=== PATIENT | female | born 1950 | race Caucasian/White ===

== ENCOUNTER → 2018-05-06 12:50 | Outpatient (REF) | payer MEDICARE, BC, SELFPAY | LOC: NCHCN 12:50 | PROVIDERS: PCP Family Medicine; Visit Provider Family Medicine | DX: R30.0 Dysuria (principal) | CPT/HCPCS: 87086 ==

== ENCOUNTER 2018-05-24 00:02 | Emergency (ER) | payer MEDICARE, BC, SELFPAY ==
[2018-05-24 00:07] VITALS: BP 150/85; PULSE 100; RESP 22; TEMP 37.3; O2SAT 96
--- NOTE | 2018-05-24 00:39 | ED.GENADUL_ITS ---
Discharge Plan Discharge Details Chief Complaint: Urinary Clinical Impression: Viral illness Reason For Visit: UNKNOWN Primary Care Provider: Tamara Gomez ED Provider: Randy Alcantara Disposition Patient Disposition: HOME Condition: Good Home Meds and New Rx's Prescriptions: Continue omega-3 fatty acids-fish oil 1 EACH capsule 1 ea PO BID RF: 0 multivitamin 1 EACH capsule 1 tab PO DAILY RF: 0 vitamin A 25,000 UNIT capsule 25,000 unit PO DAILY RF: 0 calcium carb and citrat-mag ox [CalMag Thins] 1 EACH tablet 1 ea PO DAILY RF: 0 metoprolol tartrate 12.5 MG tablet 12.5 mg PO PRN PRNRF: 0 acetaminophen [Mapap Extra Strength] 500 MG tablet 1,000 mg PO TID Qty: 120 RF: 2 esomeprazole magnesium [Nexium] 20 MG capsule,delayed release(DR/EC) 20 mg PO DAILY RF: 0 Discharge Instructions Instructions: Viral Syndrome (ED) Additional Instructions: This appears to likely be a viral illness. We will send a tickborne panel. Do not think that this is meningitis. However, if you develop continued worsening headache, neurologic changes, lethargy, vomiting, he should return to ED. Otherwise follow-up with primary care next week. Use Tylenol and Motrin for pain. Drink plenty of fluids to stay hydrated. Referrals: Tamara Gomez [Primary Care Provider] - Medical Decision Making MDM Narrative Medical decision making narrative: Patient presenting with complaints of fevers , chills, headache, body aches. She has had these now for the weekend. Has had a waxing and waning course. She developed a rash to the upper extremities this afternoon. This evening headache and body ache much worse. She is awake and alert. She is afebrile here. She has no meningeal signs. Constellation of symptoms are more suggestive of viral illness. She does have some dysuria so we will check a urinalysis. Will check laboratory studies, give a liter of fluid and give Toradol. If headache does not improve significantly need to consider CT and LP to rule out meningitis. Patient's laboratory studies have normal white count and normal platelets. Liver function is a little elevated so maybe consider tickborne disease though with normal platelets less likely. Viral illness could still be causing some liver function abnormality. Chemistries unremarkable. Urinalysis is negative. On reevaluation patient feels significantly better. Body aches are gone. Headache is still present but it is mostly sinus discomfort now. She continues to have no evidence of meningeal irritation. We discussed possibilities of meningitis and tickborne disease. Would not proceed with LP at this point. Will send off tickborne panel but would not treat. Patient be discharged home. Continue use of Tylenol and/or Motrin for fever and pain. Stay hydrated. Rest. Follow-up with primary care in a couple of days. Return to ED if significantly worsening headache, confusion, neurologic changes, vomiting, other concerns. Lab Data Lab results reviewed: Yes I reviewed the patient's lab results. HPI - General Adult General Mode of arrival: ambulatory . Date/Time Provider Initiated Documentation: 05/24/18 00:20 . Limitations to Documentation: no limitations . Information obtained by: patient . HPI Narrative-FOR DICTATION ONLY HPI Narrative: Patient presents to ED with complaints of headache and body aches. She has had fevers and chills on and off over the weekend. She recently was treated with amoxicillin for UTI. Symptoms seem to go away until this weekend she began to have dysuria again. She has strips that were positive for leukocyte esterase so she took some nitrofurantoin. She still has some dysuria. She developed a faint rash on her arms and legs this afternoon. She woke up tonight with generalized body pain throughout. Continues to have headache. Her eyes are burning and itching. She has no rhinorrhea, cough, sore throat. She has no chest pain or shortness of breath. She has no abdominal pain. She has some nausea but no vomiting or diarrhea. Related Data Home Medications Medication Instructions Recorded Confirmed multivitamin 1 tab PO DAILY 11/29/13 05/24/18 omega-3 fatty acids-fish oil 1 ea PO BID 06/22/17 05/24/18 calcium carb and citrat-mag ox 1 ea PO DAILY 08/19/17 05/24/18 [CalMag Thins] metoprolol tartrate 12.5 mg PO PRN PRN 08/19/17 05/24/18 vitamin A 25,000 unit PO DAILY 08/19/17 12/15/17 esomeprazole magnesium [Nexium] 20 mg PO DAILY 12/15/17 05/24/18 Previous Rx's Medication Instructions Recorded acetaminophen [Mapap Extra 1,000 mg PO TID #120 tab 08/27/17 Strength] Allergies Allergy/AdvReac Type Severity Reaction Status Date / Time No Known Allergies Allergy Unverified 05/24/18 00:10 General Stated Complaint: Urinary JUSTYN: 3 Review of Systems Constitutional Reports chills, Reports fever(s), Reports headache(s) (Throbbing frontal headache), Reports malaise and Denies weakness Eyes Patient Denies change in vision, denies, Reports itchy eyes and Denies eye pain ENT Denies otalgia, Reports headache(s) (Throbbing frontal headache), Denies nasal congestion, Denies nasal discharge, Denies neck pain and Denies sore throat Cardiovascular Denies chest pain, Denies pedal edema, Denies palpitations and Denies dyspnea Respiratory Denies chest congestion, Denies cough and Denies dyspnea Gastrointestinal Denies abdominal pain, Denies diarrhea, Reports nausea and Denies vomiting Genitourinary Denies hematuria and Reports dysuria Musculoskeletal Reports myalgias, Denies muscle weakness, Denies neck pain and Denies numbness Integumentary/Breasts Denies erythema, Reports rash and Denies wounds Neurologic Denies confusion, Reports headache(s) (Throbbing frontal headache), Denies numbness and Denies weakness Psychiatric Denies confusion Endocrine Denies palpitations Allergic/Immunologic Reports itchy eyes PFSH Medical History Pulmonary embolism (Chronic) SVT (supraventricular tachycardia) (Chronic) Social History Smoking/Tobacco Use Status: Former Tobacco Use Surgical History H/O total knee replacement (Inactive) S/P total hip arthroplasty (Inactive) Exam Const General: cooperative and other (Uncomfortable appearing but not toxic looking) Orientation: alert and oriented x3 HENMT Head: normal to inspection, normocephalic and atraumatic Mouth: moist mucous membranes Eyes Conjunctivae: conjunctival abnormality bilaterally conjunctival injection ( Minimal) Sclera: sclerae normal Pupils: PERRL Neck Neck: normal visual inspection, full ROM, no meningeal signs and supple Resp Effort & Inspection: normal respiratory effort Auscultation: clear to auscultation bilaterally Cardio Rate: regular rate Rhythm: regular rhythm Heart Sounds: S1 normal and S2 normal GI Inspection: normal to inspection Palpation: soft, no guarding and nontender Back/Spine/Pelvis Back: no CVA tenderness Skin General skin exam: no erythema Rashes: rashes noted (Maculopapular diffuse mildly erythematous rash on the upper extremities approximately. None noted on the trunk. Minimal appearance on the lower extremities.) Neuro General: alert, oriented x3, gait normal, moves all extremities, no meningeal signs, no focal motor deficits, CN's II-XI intact bilaterally, not confused and not obtunded Extrem General: normal to inspection, full ROM and no pedal edema Course Vital Signs Temperature 99.1 F 05/24/18 00:07 Pulse 100 H 05/24/18 00:07 Respiratory Rate 22 05/24/18 00:07 Blood Pressure 150/85 H 05/24/18 00:07 Pulse Oximetry 96 05/24/18 00:07 Temperature 99.1 F 05/24/18 00:07 Pulse 100 H 05/24/18 00:07 Respiratory Rate 22 05/24/18 00:07 Blood Pressure 150/85 H 05/24/18 00:07 Pulse Oximetry 96 05/24/18 00:07
[2018-05-24 00:50] LABS: Abs Immature Grans 0.01 k/cumm (0.0-0.09); Absolute Basophil Count 0.01 k/cumm (0.0-0.2); Absolute Eosinophil Count 0.68 k/cumm (0.0-0.7); Absolute Monocyte Count 0.35 k/cumm (0.11-0.7); Absolute Neutrophil Count 3.37 k/cumm (1.2-6.7); Basophils % 0.2; Eosinophils % 12.8; HCT 37.9 % (36.0-46.0); HGB 12.4 g/dL (12.0-15.5); Immature Grans % 0.2; Lymphocytes % 16.9; Mean Corp. HGB Concentration 32.7 g/dL (32.0-36.0); Mean Corpuscular Hemoglobin 28.8 pg (27.0-33.0); Mean Corpuscular Volume 87.9 fL (80-95); Mean Platelet Volume 9.6 fL (8.0-11.0); Monocytes % 6.6; Neutrophils % 63.3; Platelet Count 252 x1000/uL (130-400); RBC 4.31 m/cumm (4.00-5.20); RBC Distribution Width 13.8 % (11.7-14.6); White Blood Cell Count 5.32 k/cumm (4.4-10.8)
[2018-05-24] MEDS: Normal Saline Flush 10 ML SYR IVP (01:00)
[2018-05-24] MEDS: Ketorolac 15 MG/ML VIAL IVP (01:00)
[2018-05-24] MEDS: Lactated Ringers 1,000 ML 1000 ML IV (01:00)
[2018-05-24 01:08] LABS: ALT 84 U/L (12-78); AST 66 U/L (15-37); Alkaline Phosphatase 135 U/L (46-116); Anion Gap 5.7 mmol/L (3-11); BUN 9 mg/dL (7-18); Bilirubin, Total 0.3 mg/dL (0.2-1.0); CO2 28.3 mmol/L (21.0-32.0); Calcium 8.6 mg/dL (8.5-10.1); Chloride 103 mmol/L (98-107); Glucose 118 mg/dL (70-100); Magnesium 1.8 mg/dL (1.8-2.4); Potassium 3.7 mmol/L (3.5-5.1); Sodium 137 mmol/L (136-145); Total Protein 6.8 g/dL (6.4-8.2)
[2018-05-24 03:08] LABS: Bilirubin Negative (Negative); Blood Small (Negative); Clarity Clear; Glucose Negative (Negative); Ketones Negative (Negative); Leukocyte Esterase Negative (Negative); Nitrite Negative (Negative); Specific Gravity 1.015 (1.005-1.025); Urobilinogen 0.2 EU/dL (Up TO 0.2)
[2018-05-24 03:15] LABS: Bacteria Few HPF (Negative); C & S Indicated? No/Sq. Contamination; Casts Negative LPF (Negative); Crystals Negative HPF (Negative); Epithelial Cells Moderate HPF (Negative); Mucus Negative (Negative)
[2018-05-24 04:26] VITALS: BP 150/85; PULSE 100; RESP 22; TEMP 37.3; O2SAT 96
[2018-05-26 12:20] LABS: Lyme Ab w Rflx to Lyme Confirm Negative
[2018-05-26 21:36] LABS: Anaplasma phagocytophilum Negative (Negative); B. miyamotoi PCR Negative (Negative); Babesia divergens/MO-1 Negative (Negative); Babesia duncani Negative (Negative); Babesia microti Negative (Negative); Ehrlichia chaffeensis Negative (Negative); Ehrlichia ewingii/canis Negative (Negative); Ehrlichia muris eauclairensis Negative (Negative)
== END 2018-05-24 04:26 | disposition home or self-care (01) ==
LOC: ER 04:31
PROVIDERS: Emergency Provider Emergency Medicine; PCP Family Medicine
DX: B34.9 Viral infection, unspecified (principal)
CPT/HCPCS: 36415; 80053; 96374; 99284; 81003; 81015; 83735; 85025; 86618; 87798; 99282; J1885

== ENCOUNTER 2018-08-12 13:20 | Emergency (ER) | payer MEDICARE, BC, SELFPAY ==
[2018-08-12] VITALS (39 sets, daily range): BP systolic 126–154; BP diastolic 66–91; PULSE 55–68; RESP 9–22; TEMP 36.2; O2SAT 59–100
[2018-08-12 14:18] LABS: Abs Immature Grans 0.01 k/cumm (0.0-0.09); Absolute Basophil Count 0.07 k/cumm (0.0-0.2); Absolute Eosinophil Count 0.14 k/cumm (0.0-0.7); Absolute Lymphocyte Count 1.88 k/cumm (1.2-3.4); Absolute Neutrophil Count 5.04 k/cumm (1.2-6.7); Basophils % 0.9; Eosinophils % 1.8; HCT 39.7 % (36.0-46.0); Immature Grans % 0.1; Lymphocytes % 24.6; Mean Corp. HGB Concentration 32.7 g/dL (32.0-36.0); Mean Corpuscular Hemoglobin 29.3 pg (27.0-33.0); Mean Corpuscular Volume 89.4 fL (80-95); Mean Platelet Volume 9.7 fL (8.0-11.0); Monocytes % 6.5; Neutrophils % 66.1; Platelet Count 330 x1000/uL (130-400); RBC 4.44 m/cumm (4.00-5.20); RBC Distribution Width 14.7 % (11.7-14.6); White Blood Cell Count 7.64 k/cumm (4.4-10.8)
[2018-08-12 14:27] LABS: PTT Activated 21.7 sec (21.0-31.4)
[2018-08-12 14:29] LABS: ALT 27 U/L (12-78); AST 17 U/L (15-37); Albumin 3.6 g/dL (3.4-5.0); Alkaline Phosphatase 81 U/L (46-116); Anion Gap 7.5 mmol/L (3-11); BUN 14 mg/dL (7-18); Bilirubin, Total 0.2 mg/dL (0.2-1.0); CO2 30.5 mmol/L (21.0-32.0); Calcium 9.2 mg/dL (8.5-10.1); Chloride 103 mmol/L (98-107); Glucose 95 mg/dL (70-100); Magnesium 2.1 mg/dL (1.8-2.4); Potassium 3.8 mmol/L (3.5-5.1); Sodium 141 mmol/L (136-145); Total Protein 7.3 g/dL (6.4-8.2)
[2018-08-12 14:33] LABS: Troponin I < 0.02 ng/mL (0.00-0.06)
--- NOTE | 2018-08-12 14:55 | DI.CT_ITS ---
SYMPTOMS/DIAGNOSIS: PRIOR PE, CHEST PAIN, WEAKNESS PE CHEST CT: CT angiography was performed with multi slice acquisition and multi planar and 3D reconstruction. The study was carried out with intravenous injection of 100 cc's of Omnipaque 350. There is no evidence of pulmonary embolic disease. The aorta is intact with no abnormality identified. There is no pulmonary abnormality. There is no pneumothorax or pleural effusion. There is no cardiomegaly. There is nothing to suggest a pericardial effusion. There is no evidence of lymphadenopathy. Degenerative changes are identified. No acute fracture is seen. The soft tissues are unremarkable. SUMMARY: No evidence of PE. Incidental findings as noted above.
[2018-08-12] MEDS: Omnipaque 350 MG/ML 100 ML BTL IJ (14:56)
--- NOTE | 2018-08-12 16:06 | ED.GENADUL_ITS ---
Discharge Plan Disposition Patient Disposition: HOME Discharge Details Chief Complaint: Dizzy/Sync Clinical Impression: Pain of left scapula, Fatigue Primary Care Provider: Tamara Gomez ED Provider: Mario Alberto Dickey Home Meds and New Rx's Prescriptions: New aspirin 325 mg tablet 325 mg PO DAILY Qty: 30 RF: 0 Continue omega-3 fatty acids-fish oil 1 EACH capsule 1 ea PO DAILY RF: 0 multivitamin 1 EACH capsule 1 tab PO DAILY RF: 0 calcium carb and citrat-mag ox [CalMag Thins] 1 EACH tablet 1 ea PO DAILY RF: 0 metoprolol tartrate 12.5 MG tablet 12.5 mg PO PRN PRNRF: 0 acetaminophen [Mapap Extra Strength] 500 MG tablet 1,000 mg PO TID Qty: 120 RF: 2 ascorbic acid (vitamin C) [Vitamin C] 500 mg Tablet 500 mg PO DAILY RF: 0 esomeprazole magnesium [Nexium] 20 MG capsule,delayed release(DR/EC) 20 mg PO DAILY RF: 0 Discharge Instructions Instructions: Fatigue (ED) Additional Instructions: You should have a stress test performed as soon as possible and ideally within the next 72 hours. Take an aspirin 325mg daily. Please contact your primary care physician to arrange follow-up. Call tomorrow. Return to the ER for any worsening or new concerning symptoms. Referrals: Tamara Gomez [Primary Care Provider] - Discharge Data Discharge Date/Time-TO BE ENTERED AT DEPARTURE: 08/12/18 18:21 Medical Decision Making 16:40 -- 68-year-old female with history of DVT/PE, not on anticoagulation, bilateral knee replacement, SVT, here with intermittent pain in her left scapular area, also with an episode today of sudden fatigue with associated nausea. She continues to have fatigue currently. No pain currently. Concern for atypical presentation of ACS. ECG reviewed and interpreted by me: Normal sinus rhythm, 60 bpm, normal axis, no STEMI, nondiagnostic. Initial troponin negative. Given history of unprovoked pulmonary embolism in the past and not currently anticoagulated, plan is to obtain CT imaging to rule out acute pulmonary embolsim and dissection. Awaiting interpretation. 17:05 -- Labs reviewed and nondiagnostic. CT of the chest interpreted by radiology: Pulmonary arteries normal with no pulmonary emboli. Aorta normal with no aortic aneurysm. No aortic dissection. Impression no acute findings. Plan for delta troponin at 4 hours and repeat ECG. 17:40 --ECG reviewed and interpreted by me: Sinus bradycardia 56 bpm, normal axis, no STEMI, no significant changes from prior EKG. 18:05 -- Delta trop neg and unchanged. Will discharge with plan to have stress test as outpatient claudine. Disposition decision was made weighing the risks and benefits of hospitalization versus outpatient treatment, the risk for further decompensation , and the patient's wishes. The patient was stable and requested discharge. Prior to discharge, my usual and customary return precautions were reviewed with the patient and her - this included follow-up instructions and reason to return to the emergency department if condition worsens, does not improve as expected, or other new concerns arise. HPI General Mode of arrival: ambulatory . Date/Time Provider Initiated Documentation: 08/12/18 13:54 . Limitations to Documentation: no limitations . Information obtained by: patient . HPI Narrative: 68-year-old female with history of DVT and pulmonary embolism, no longer anticoagulated, bilateral total knee replacements, SVT, here with chief complaint of pain in her shoulder blade. Patient notes that this morning she was shoveling snow and shortly thereafter developed pain in her left shoulder blade that was intermittent this morning. She has been having intermittent pain in her shoulder blades over the past 1-2 months. Pain was moderate. Described as an ache. No associated chest pain. She also notes that around 1215 she suddenly experienced a rushing sensation.. that struck the energy out of her. This feeling was severe and she was left feeling fatigued. She had associated nausea with this episode. Also of note, patient has had significant life stressors including her mother passing recently. Denies associated leg swelling or calf pain. No shortness of breath. Related Data Home Medications Medication Instructions Recorded Confirmed multivitamin 1 tab PO DAILY 11/29/13 08/12/18 omega-3 fatty acids-fish oil 1 ea PO DAILY 06/22/17 08/12/18 calcium carb and citrat-mag ox 1 ea PO DAILY 08/19/17 05/24/18 [CalMag Thins] metoprolol tartrate 12.5 mg PO PRN PRN 08/19/17 08/12/18 acetaminophen [Mapap Extra 1,000 mg PO TID #120 tab 08/27/17 08/12/18 Strength] esomeprazole magnesium [Nexium] 20 mg PO DAILY 12/15/17 08/12/18 ascorbic acid (vitamin C) [Vitamin 500 mg PO DAILY 08/12/18 08/12/18 C] aspirin 325 mg PO DAILY #30 tab 08/12/18 Previous Rx's Medication Instructions Recorded acetaminophen [Mapap Extra 1,000 mg PO TID #120 tab 08/27/17 Strength] aspirin 325 mg PO DAILY #30 tab 08/12/18 Allergies Allergy/AdvReac Type Severity Reaction Status Date / Time No Known Allergies Allergy Unverified 08/12/18 13:30 General Stated Complaint: Dizzy/Sync JUSTYN: 2 Review of Systems Review of Systems All systems reviewed & are unremarkable except as noted in HPI and below Constitutional Reports fatigue and Denies fever(s) Cardiovascular Denies chest pain Endocrine Reports fatigue PFSH Medical History Pulmonary embolism (Chronic) SVT (supraventricular tachycardia) (Chronic) Social History Smoking/Tobacco Use Status: Former Tobacco Use Surgical History H/O total knee replacement (Inactive) S/P total hip arthroplasty (Inactive) Social History Smoking/Tobacco Use Status: Former Tobacco Use Exam Const General: cooperative and no acute distress HENMT Head: normocephalic and atraumatic Mouth: moist mucous membranes Eyes Conjunctivae: normal conjunctivae Sclera: normal sclerae EOM: EOM intact bilaterally Neck Neck: trachea midline and supple Resp Auscultation: clear to auscultation bilaterally, no rales, no rhonchi and no wheezes Cardio Jugular venous pressure: no JVD Rate: regular rate and not tachycardic Rhythm: regular rhythm GI Palpation: soft, not firm, no guarding, no masses, not rigid and nontender Skin General skin exam: no rashes or lesions noted Neuro General: alert, awake, oriented x3 and tone normal Extrem General: no calf tenderness bilaterally and no edema Psych Appearance: grossly normal Mental Status: mental status grossly normal Speech and Movement: speech and movement normal Mood: anxious mood Course Vital Signs Respiratory Rate 22 08/12/18 13:24 Pulse Oximetry 100 11/22/18 13:24 Temperature 36.2 C L 08/12/18 13:25 Temperature Source Skin 08/12/18 13:25 Pulse 57 L 08/12/18 15:44 Pulse 59 L 08/12/18 15:44 Respiratory Rate 14 08/12/18 15:44 Respiratory Effort 08/12/18 13:33 Respiratory Pattern Normal 08/12/18 13:33 Blood Pressure 137/71 08/12/18 15:44 Blood Pressure Mean 86 08/12/18 15:44 Pulse Oximetry 99 08/12/18 15:44 Oxygen Delivery Method Room Air 08/12/18 13:25 Oxygen Flow Rate 0 08/12/18 13:25 Lab/Test Results Lab/Test Results: Laboratory Tests Range/Units 08/12/18 08/12/18 08/12/18 13:30 13:30 13:30 WBC (4.4-10.8) k/cumm 7.64 RBC (4.00-5.20) m/cumm 4.44 Hgb (12.0-15.5) g/dL 13.0 Hct (36.0-46.0) % 39.7 MCV (80-95) fL 89.4 MCH (27.0-33.0) pg 29.3 MCHC (32.0-36.0) g/dL 32.7 RDW (11.7-14.6) % 14.7 H Plt Count (130-400) x1000/uL 330 MPV (8.0-11.0) fL 9.7 Immature Gran % 0.1 Neutrophils % 66.1 Lymphocytes % 24.6 Monocytes % 6.5 Eosinophils % 1.8 Basophils % 0.9 Absolute Neutrophils (1.2-6.7) k/cumm 5.04 Absolute Lymphocytes (1.2-3.4) k/cumm 1.88 Absolute Monocytes (0.11-0.7) k/cumm 0.50 Absolute Eosinophils (0.0-0.7) k/cumm 0.14 Absolute Basophils (0.0-0.2) k/cumm 0.07 APTT (21.0-31.4) sec 21.7 Sodium (136-145) mmol/L 141 Potassium (3.5-5.1) mmol/L 3.8 Chloride (98-107) mmol/L 103 Carbon Dioxide (21.0-32.0) mmol/L 30.5 Anion Gap (3-11) mmol/L 7.5 BUN (7-18) mg/dL 14 Creatinine (0.55-1.02) mg/dL 0.90 Estimated GFR/1.73 m2 (mL/min/1.73m2) >= 60.00 Glucose (70-100) mg/dL 95 Calcium (8.5-10.1) mg/dL 9.2 Magnesium (1.8-2.4) mg/dL 2.1 Total Bilirubin (0.2-1.0) mg/dL 0.2 AST (15-37) U/L 17 ALT (12-78) U/L 27 Alkaline Phosphatase (46-116) U/L 81 Troponin I (0.00-0.06) ng/mL < 0.02 Total Protein (6.4-8.2) g/dL 7.3 Albumin (3.4-5.0) g/dL 3.6
--- NOTE | 2018-08-12 16:54 | DI.VRAD_ITS ---
EXAM: CT Angiography Chest With Intravenous Contrast EXAM DATE/TIME: 08/12/2018 1:59 PM CLINICAL HISTORY: 68 years old, female; Pain; Chest pain; Left-sided chest pain; Patient HX: Prior pe 1 year ago, chest pain and weakness x1 week, increased chest pain this morning. TECHNIQUE: Axial computed tomographic angiography images of the chest with intravenous contrast using CT angiography protocol. All CT scans at this facility use at least one of these dose optimization techniques: automated exposure control; mA and/or kV adjustment per patient size (includes targeted exams where dose is matched to clinical indication); or iterative reconstruction. Coronal and sagittal reformatted images were created and reviewed. MIP and 3D reconstructed images were created and reviewed. CONTRAST: 100 ml of omnipaque 350 administered intravenously. COMPARISON: CT CHEST FOR PULMONARY EMBOLUS 11/15/2016 8:15 AM FINDINGS: Pulmonary arteries: Normal. No pulmonary emboli. Aorta: Normal. No aortic aneurysm. No aortic dissection. Lungs: Normal. No consolidation. No masses. Pleural space: Normal. No pneumothorax. No pleural effusion. Heart: Normal. No cardiomegaly. No pericardial effusion. Lymph nodes: Unremarkable. No enlarged lymph nodes. Bones/joints: Age-related degenerative changes. No acute fracture. Soft tissues: Unremarkable. IMPRESSION: No acute findings. Dictated and Authenticated by: Zach Livingston MD. Ordering:FADI TOLBERT MD
[2018-08-12 17:57] LABS: Troponin I < 0.02 ng/mL (0.00-0.06)
== END 2018-08-12 18:21 | disposition home or self-care (01) ==
PROVIDERS: Nurse Practitioner Family; Emergency Provider Student in an Organized Health Care Education/Training Program; PCP Family Medicine
DX: M25.512 Pain in left shoulder (principal); R53.83 Other fatigue; R11.0 Nausea; Z86.711 Personal history of pulmonary embolism; Y93.H1 Activity, digging, shoveling and raking
CPT/HCPCS: 36415; 71275; 80053; 93005; 99285; 83735; 84484; 85025; 85730; 93010; J3490

== ENCOUNTER 2018-08-13 16:42 | Outpatient (REF) | payer MEDICARE, BC, SELFPAY ==
[2018-08-13 20:56] LABS: Lipase 170 U/L (73-393)
[2018-08-13 22:29] LABS: T4 7.8 ug/dL (4.5-12.5)
[2018-08-15 17:43] LABS: T3, Total 110 ng/dl (97-169)
== END 2018-08-13 17:02 ==
LOC: NCHCN 16:42
PROVIDERS: PCP Family Medicine; Visit Provider Family Medicine
DX: R10.9 Unspecified abdominal pain (principal); E03.9 Hypothyroidism, unspecified
CPT/HCPCS: 83690; 84436; 84443; 84480

== ENCOUNTER 2018-08-18 00:11 | Outpatient (CLI) | payer MEDICARE, BC, SELFPAY ==
--- NOTE | 2018-08-18 08:30 | ETT_ITS ---
*[facility]* *[facility]* [address] [place] [address] Stress Electrocardiography Sorin protocol Date of study: 08/18/2018 *PATIENT PRESENTATION* Height: 162.6cm (64in) Blood Pressure: Weight: 96.4kg (212lb) BSA: 2.13m^2 Ordering physician: Mario Alberto Dickey Impressions: Negative stress test after maximal exercise. Summary: 1. Stress ECG conclusions: The stress ECG is negative. Jauregui treadmill score: 3. This score predicts a moderate risk of cardiac events. 2. Stress: The target heart rate was achieved. The heart rate response to stress is normal. There is a normal resting blood pressure with an appropriate response to stress. The patient experienced no chest pain during stress. Exercise capacity is markedly diminished for age. Recommendations: Consider nuclear stress test for further risk stratification if strong suspicion for CAD. Indication: R07.9, Appropriate Use Criteria: A (Appropriate). History: REASON FOR VISIT: PT WAS SEEN IN THE ED ON 08/12/18 FOR INTERMITTENT PAIN IN HER LEFT SCAPULA AREA ALSO WITH AN EPISODE OF SUDDEN FATIGUE ASSOCIATED WITH NAUSEA. PT ARRIVES TODAY WITH MILD LEFT SHOULDER PAINS AND FATIGUE. Risk factors: Family history of coronary artery disease. Obesity. Dyslipidemia. Cholesterol: 211mg/dl. HDL: 79mg/dl. LDL: 100mg/dl. Triglycerides: 113mg/dl. ALLERGIES: NO KNOWN ALLERGIES. MEDICATIONS: OMEGA-3 FATTY ACIDS-FISH OIL 1 CAP DAILY. MVI 1 TAB DAILY. METOPROLOL TARTRATE 12.5 MG PRN. ESOMEPRAZOLE MAGNESIUM 20 MG DAILY. CALCIUM CARB AND CITRATE-MAG OX 1 DAILY. ASPIRIN 325 MG DAILY. ASCORBIC ACID 500 MG DAILY. ACETAMINOPHEN 1,000 MG TID. Protocol: Sorin protocol. Baseline ECG: SINUS BRADYCARDIA. HR 59 BPM. Sinus bradycardia. Stress protocol: + +---+ + !Stage !HR !BP (mmHg) ! + +---+ + !Baseline supine !59 !148/86 (107)! + +---+ + !Baseline standing !72 !140/88 (105)! + +---+ + !Immediate post stress!120!152/76 (101)! + +---+ + !Recovery; 3 min !66 !152/80 (104)! + +---+ + !Recovery; 6 min !71 !142/80 (101)! + +---+ + * Stress results: Maximal heart rate during stress was 152bpm (100% of maximal predicted heart rate). The maximal predicted heart rate was 152bpm. The target heart rate was achieved. The heart rate response to stress is normal. There is a normal resting blood pressure with an appropriate response to stress. The rate-pressure product for the peak heart rate and blood pressure was 10465ad Hg/min. The patient experienced no chest pain during stress. Exercise capacity is markedly diminished for age. Stress ECG: TREADMILL PORTION OF STRESS TEST ENDED IN 2 MINUTES & 18 SECONDS PER PT'S REQUEST DUE TO FATIGUE. EXAGGERATED HEART RATE RESPONSE TO EXERCISE. HR 59 BPM AT REST. HR 120 BPM AFTER 2 MINUTES OF EXERCISE. NORMAL BLOOD PRESSURE RESPONSE TO EXERCISE MAX HR = 152 % OF TARGET HR = 100 RARE PVC & PAC. APPROXIMATE METS ACHIEVED = 4.64 NO ANGINA NO SIGNIFICANT ST SEGMENT CHANGES MILDLY DIMINISHED FUNCTIONAL CAPACITY FOR EXERCISE The stress ECG is negative. Jauregui treadmill score: 3. This score predicts a moderate risk of cardiac events. Study data: Jd Irwin MD supervised and was readily available during the procedure. This study was interpreted by [facility]. Study status: Routine. Consent: The risks, benefits, and alternatives to the procedure were explained to the patient and informed consent was obtained. Procedure: Initial setup. A baseline ECG was recorded. Surface ECG leads and manual cuff blood pressure measurements were monitored. Heart sounds: Normal. Lung sounds: Normal. Treadmill exercise testing was performed using the Sorin protocol. Study completion: The patient tolerated the procedure well and was discharged from the lab. Discharge: The patient left the laboratory in stable condition. Birthdate: Patient birthdate: 1950. Sex: Gender: female. Study date: Study date: 08/18/2018. Study time: 08:30 AM. Signature Documentation: The Stress ECG portion of this study was interpreted by Jd Irwin MD. Electronically signed by Jd Irwin 08/18/2018 10:37
== END 2018-08-18 00:31 ==
PROVIDERS: PCP Family Medicine; Visit Provider Student in an Organized Health Care Education/Training Program
DX: R07.9 Chest pain, unspecified (principal); R10.9 Unspecified abdominal pain
CPT/HCPCS: 76700; 93017

== ENCOUNTER 2018-08-18 09:43 | Outpatient (CLI) | payer MEDICARE, BC, SELFPAY ==
--- NOTE | 2018-08-18 08:13 | DI.US_ITS ---
SYMPTOMS/DIAGNOSIS: ABDOMINAL PAIN, R10.9 ABDOMINAL ULTRASOUND: Comparison is made with August,. The liver is normal in size and echogenicity. The gallbladder is unremarkable, without evidence of stones or wall thickening. There is no biliary dilatation. The spleen, kidneys and aorta are unremarkable. The tail of the pancreas is not optimally visualized. IMPRESSION: Negative abdominal ultrasound.
== END 2018-08-18 10:03 ==
PROVIDERS: PCP Family Medicine; Visit Provider Family Medicine
DX: R10.9 Unspecified abdominal pain (principal)
CPT/HCPCS: 76700

== ENCOUNTER 2018-08-24 00:27 | Outpatient (CLI) | payer MEDICARE, BC, SELFPAY ==
--- NOTE | 2018-08-24 08:33 | DI.NM_ITS ---
SYMPTOM/DIAGNOSIS: ABD PAIN, R10.9 HYPOTHYROIDISM, E03.9 CCK HIDA SCAN: The patient received 4.6 mCi Tc99m Mebrofenin. The Kinevac injection was stopped after 0.3 micrograms due to significant gallbladder emptying. The liver, bile ducts, gallbladder and small bowel were visualized at appropriate time intervals. Gallbladder ejection fraction was calculated at 83%. IMPRESSION: Normal examination.
== END 2018-08-24 00:47 ==
PROVIDERS: PCP Family Medicine; Visit Provider Family Medicine
DX: R10.9 Unspecified abdominal pain (principal); E03.9 Hypothyroidism, unspecified
CPT/HCPCS: 78227

== ENCOUNTER 2018-09-29 11:59 | Outpatient (REF) | payer MEDICARE, BC, SELFPAY ==
[2018-09-29 12:43] LABS: Cholesterol 211 mg/dL (50-200); HDL Cholesterol 81 mg/dL (40-60); LDL CHOLESTEROL 108 mg/dL (<100); Triglyceride 69 mg/dL (30-150)
[2018-09-30 10:42] LABS: Hepatitis C Ab w Rflx HCV PCR Negative (NEGAT)
[2018-10-01 11:36] LABS: IgA 108 mg/dL (85-499); Interpretation SEE COMMENTS; Tissue Transglutaminase IgA <1.2 U/mL (<4.0)
== END 2018-09-29 12:19 ==
LOC: NCHCN 11:59
PROVIDERS: PCP Nurse Practitioner; Visit Provider Nurse Practitioner
DX: R10.9 Unspecified abdominal pain (principal); Z11.59 Encounter for screening for other viral diseases; E03.9 Hypothyroidism, unspecified
CPT/HCPCS: 80061; 82784; 83516; 83721; 86803

== ENCOUNTER 2018-10-06 08:49 | Outpatient (CLI) | payer MEDICARE, BC, SELFPAY ==
--- NOTE | 2018-10-06 08:41 | DI.RAD_ITS ---
SYMPTOMS/DIAGNOSIS: ANNUAL F/U TEO LEFT HIP AND PELVIS: Comparison is made with [id number]. There has been no change in the total left hip prosthesis or surrounding bone. The right hip joint space is well maintained. Degenerative changes are seen at the right SI joint and pubic symphysis. IMPRESSION: Stable appearance of left hip prosthesis.
== END 2018-10-06 09:09 ==
PROVIDERS: PCP Nurse Practitioner; Referring Provider Family Medicine; Visit Provider Student in an Organized Health Care Education/Training Program
DX: M25.512 Pain in left shoulder (principal); M19.012 Primary osteoarthritis, left shoulder; Z96.642 Presence of left artificial hip joint; M53.3 Sacrococcygeal disorders, not elsewhere classified; Z47.1 Aftercare following joint replacement surgery
CPT/HCPCS: 73502

== ENCOUNTER 2018-10-06 10:27 | Outpatient (CLI) | payer MEDICARE, BC, SELFPAY ==
--- NOTE | 2018-10-06 09:30 | DI.RAD_ITS ---
SYMPTOMS/DIAGNOSIS: LEFT SHOULDER PAIN LEFT SHOULDER: There is mild spurring at the undersurface of the acromion and inferior glenoid. Subchondral cysts are seen in the humeral head. The humeral head appears normally positioned. IMPRESSION: Mild degenerative changes.
== END 2018-10-06 10:47 ==
PROVIDERS: PCP Nurse Practitioner; Visit Provider Physician Assistant
DX: M70.62 Trochanteric bursitis, left hip (principal); Z96.642 Presence of left artificial hip joint; M75.82 Other shoulder lesions, left shoulder; Z47.1 Aftercare following joint replacement surgery
CPT/HCPCS: 99213; 73030; 73502

== ENCOUNTER 2018-10-11 00:26 | Outpatient (CLI) | payer MEDICARE, BC, SELFPAY ==
--- NOTE | 2018-10-11 11:09 | DI.MAMMO_ITS ---
SYMPTOM/DIAGNOSIS: SCREENING, Z12.31 MAMMOGRAMS: Mammograms were interpreted according to the usual protocol including computer analysis with CAD system, tomosynthesis and C view imaging. Comparison with prior examinations. Breast density B. No suspicious masses or microcalcifications are seen. There is no definite evidence of malignancy. IMPRESSION: Negative mammogram. Routine screening is recommended. Category I. MQSA ASSESSMENT OF FINDINGS: Negative. Category 1. Patient will receive a letter notifying them of these results. BI-RADS category B. There are scattered areas of fibroglandular density.
== END 2018-10-11 00:46 ==
PROVIDERS: PCP Nurse Practitioner; Visit Provider Nurse Practitioner
DX: Z12.31 Encounter for screening mammogram for malignant neoplasm of breast (principal)
CPT/HCPCS: 77063; 77067

== ENCOUNTER → 2018-12-27 09:19 | Outpatient (BNVA) | payer MEDICARE, BC, SELFPAY | PROVIDERS: PCP Nurse Practitioner; Referring Provider Nurse Practitioner; Visit Provider Student in an Organized Health Care Education/Training Program | DX: M70.62 Trochanteric bursitis, left hip | CPT/HCPCS: 99213 ==

== ENCOUNTER 2019-01-03 12:54 | Emergency (ER) | payer MEDICARE, BC, SELFPAY ==
[2019-01-03 13:16] VITALS: BP 131/70; PULSE 70; RESP 16; TEMP 36.5; O2SAT 98
--- NOTE | 2019-01-03 13:30 | DI.CT_ITS ---
SYMPTOM/DIAGNOSIS: CHEST PAIN, H/O BLOOD CLOTS, PE PE CHEST CT: CT angiography was performed with multi slice acquisition and multi planar and 3D reconstruction. CT angiography of the chest was performed with intravenous infusion of 100 cc's of Omnipaque 350. Images obtained through the upper abdomen show unremarkable appearance of visualized portions of the liver and spleen. Inferior most portions of the lung bases are not included on these images. Lungs appear clear. No pleural effusion. No pneumothorax. No evidence of pulmonary embolic disease. No aortic dissection or aneurysm. No mediastinal or hilar adenopathy. Tracheobronchial tree appears intact. CONCLUSION: Negative chest CTA.
[2019-01-03 14:08] LABS: Bilirubin Negative (Negative); Blood Trace-intact (Negative); Clarity Clear; Glucose Negative (Negative); Ketones Negative (Negative); Leukocyte Esterase Negative (Negative); Nitrite Negative (Negative); Urobilinogen 0.2 EU/dL (Up TO 0.2); pH 5.5 (5-8)
[2019-01-03 14:15] LABS: Abs Immature Grans 0.02 k/cumm (0.0-0.09); Absolute Basophil Count 0.06 k/cumm (0.0-0.2); Absolute Eosinophil Count 0.15 k/cumm (0.0-0.7); Absolute Lymphocyte Count 1.73 k/cumm (1.2-3.4); Absolute Monocyte Count 0.44 k/cumm (0.11-0.7); Absolute Neutrophil Count 4.92 k/cumm (1.2-6.7); Basophils % 0.8; HGB 12.5 g/dL (12.0-15.5); Immature Grans % 0.3; Lymphocytes % 23.6; Mean Corp. HGB Concentration 32.9 g/dL (32.0-36.0); Mean Corpuscular Hemoglobin 29.3 pg (27.0-33.0); Mean Corpuscular Volume 89.2 fL (80-95); Mean Platelet Volume 9.2 fL (8.0-11.0); Neutrophils % 67.3; Platelet Count 298 x1000/uL (130-400); RBC 4.26 m/cumm (4.00-5.20); White Blood Cell Count 7.32 k/cumm (4.4-10.8)
[2019-01-03 14:17] LABS: Bacteria Few HPF (Negative); C & S Indicated? No; Casts Negative LPF (Negative); Crystals Negative HPF (Negative); Epithelial Cells Moderate HPF (Negative); Mucus Negative (Negative); RBC 0-2 (0-2); WBC 0-2 HPF (0-5)
[2019-01-03 14:40] LABS: ALT 23 U/L (12-78); AST 15 U/L (15-37); Albumin 3.6 g/dL (3.4-5.0); Alkaline Phosphatase 96 U/L (46-116); Anion Gap 7.2 mmol/L (3-11); BUN 13 mg/dL (7-18); Bilirubin, Total 0.3 mg/dL (0.2-1.0); CO2 29.8 mmol/L (21.0-32.0); CREATININE 0.95 mg/dL (0.55-1.02); Chloride 104 mmol/L (98-107); Glucose 103 mg/dL (70-100); Magnesium 1.9 mg/dL (1.8-2.4); Potassium 3.5 mmol/L (3.5-5.1); Sodium 141 mmol/L (136-145); Total Protein 7.4 g/dL (6.4-8.2); Troponin I < 0.02 ng/mL (0.00-0.06)
--- NOTE | 2019-01-03 15:04 | ED.GENADUL_ITS ---
Discharge Plan Disposition Patient Disposition: AGAINST MEDICAL ADVICE Condition: Improving Discharge Details Chief Complaint: Chest/Rib Clinical Impression: Chest pain, GERD (gastroesophageal reflux disease), Anxiety Primary Care Provider: Tamara Gomez ED Provider: Joao Mtz Home Meds and New Rx's Prescriptions: Continued CalMag Thins 1 EACH tablet 1 ea PO DAILY RF: 0 metoprolol tartrate 12.5 MG tablet 12.5 mg PO PRN PRNRF: 0 acetaminophen [Mapap Extra Strength] 500 MG tablet 1,000 mg PO TID Qty: 120 RF: 2 aspirin 325 mg tablet 325 mg PO DAILY Qty: 30 RF: 0 Discharge Instructions Instructions: Chest Pain (ED), Gastroesophageal Reflux Disease (ED), Anxiety (ED) Additional Instructions: Continue to take your medication as prescribed and follow-up with your primary care provider as needed for reassessment or if not improving. Return to emergency department mainly for any new or worsening symptoms including chest pain, shortness of breath, or further concerns. Referrals: Tamara Gomez [Primary Care Provider] - (As needed for reassessment, further concerns, or change symptoms) Discharge Data Discharge Date/Time-TO BE ENTERED AT DEPARTURE: 01/03/19 16:20 Medical Decision Making <Joao Mtz NP - Last Filed: 01/05/19 10:19> Patient presenting to the emergency department for chief complaint of right- sided back/chest pain radiating to left-sided chest. Patient does state that this started with some epigastric burning and discomfort and then progressed to discomfort in her right upper back radiating to left upper back. Patient does have some issue with anxiety and did have some slight increase in anxiety and shortness of breath that is now resolved. Patient did take aspirin prior to arrival and says full resolution of symptoms prior to coming in but still feels anxious given that this presentation was similar to when she previously had PE. EKG was performed by staffing clerk and does show S1 every 3 T3 but no acute signs of STEMI. Patient physical exam is unremarkable. Plan to do workup for PE study but given that patient was eating gastritis or GERD is also considered. Patient does state history of this. Patient denies GI cocktail medication given that she is pain free Review of labs show negative troponin, otherwise unremarkable labs and CT scan of chest shows no signs of PE. Patient reassessed and continues to state improvement of symptoms with no recurrence, no shortness of breath, no syncope. Given radiating chest pain patient was offered a repeat troponin and Nexium. Patient initially was agreeable to having secondary test but then stated that she did not want this test done. Patient clearly states risk versus benefit of denial of test which she states she does not feel it is her heart. Patient states understanding that decision could lead to or disability. given that I advised this test patient was agreeable to signing out AGAINST MEDICAL ADVICE but understands that she may return at any time for reassessment. Patient was encouraged to take her Nexium as I feel that this is a possibility of cause of symptoms. After discussion of diagnosis and plan of care patient has no further needs, questions, or concerns and states clear understanding to return to the emergency department for any worsening symptoms. <Raheel Scott DO - Last Filed: 01/04/19 12:04> EKG 13: 14 Rate 70, intervals normal, sinus rhythm, right bundle branch block, there is presence of an S1Q3T3, no extra heart strain ST elevations or depressions, no evidence of STEMI. HPI <Joao Mtz NP - Last Filed: 01/05/19 10:19> General Mode of arrival: ambulatory . Date/Time Provider Initiated Documentation: 01/03/19 13:25 . Limitations to Documentation: no limitations . Information obtained by: patient and RN notes reviewed . History of Present Illness 68 year old F presents to the emergency department with the chief complaint of Chest and back pain, described as similar to prior episodes, Quality is described as burning and aching, and is localized to the chest and back. Patient started experiencing this hour(s) (1) and it has been now resolved. No exacerbating factors reported . Patient notes no other symptoms.. Patient did receive the following treatments prior to arrival, Aspirin Related Data Home Medications Medication Instructions Recorded Confirmed CalMag Thins 1 ea PO DAILY 08/19/17 01/03/19 metoprolol tartrate 12.5 mg PO PRN PRN 08/19/17 01/03/19 acetaminophen [Mapap Extra 1,000 mg PO TID #120 tab 08/27/17 01/03/19 Strength] aspirin 325 mg PO DAILY #30 tab 08/12/18 01/03/19 Previous Rx's Medication Instructions Recorded acetaminophen [Mapap Extra 1,000 mg PO TID #120 tab 12/07/17 Strength] aspirin 325 mg PO DAILY #30 tab 08/12/18 Allergies Allergy/AdvReac Type Severity Reaction Status Date / Time No Known Allergies Allergy Unverified 12/27/18 09:27 General Stated Complaint: Chest/Rib JUSTYN: 2 Review of Systems <Joao Mtz NP - Last Filed: 01/05/19 10:19> Constitutional Denies chills, Denies fever(s) and Denies malaise Cardiovascular Reports as per HPI, Reports chest pain, Denies chest pain with activity, Denies syncope, Denies irregular heart rhythm, Denies palpitations and Denies dyspnea Respiratory Denies cough, Denies hemoptysis and Denies dyspnea Gastrointestinal Denies abdominal pain, Denies nausea and Denies vomiting Neurologic Denies syncope Psychiatric Denies anxiety Endocrine Denies cold intolerance, Denies heat intolerance and Denies palpitations PFSH <Joao Mtz NP - Last Filed: 01/05/19 10:19> Medical History Pulmonary embolism (Chronic) SVT (supraventricular tachycardia) (Chronic) Surgical History H/O total knee replacement (Inactive) S/P total hip arthroplasty (Inactive) Social History Smoking/Tobacco Use Status: Former Tobacco Use Drug use: Never Do you feel safe in your relationship?: Yes Exam <Joao Mtz NP - Last Filed: 01/05/19 10:19> Const General: cooperative, healthy appearing, comfortable, no acute distress, not diaphoretic and not ill appearing Nutritional Appearance: average body habitus Orientation: alert, awake and oriented x3 Limitations: mental status not altered Neck Neck: normal visual inspection, full ROM, trachea midline, supple and no anterior neck swelling Thyroid: thyroid normal Carotids: normal carotid upstroke and no bruits Chest Chest: normal inspection of the chest Resp Effort & Inspection: normal respiratory effort and able to speak in complete sentences Auscultation: clear to auscultation bilaterally Cardio Jugular venous pressure: no JVD Palpation: normal PMI Rate: regular rate Rhythm: regular rhythm Heart Sounds: S1 normal, S2 normal, no click, no gallops, no murmurs and no rubs Bruits: no abdominal aortic bruits and no carotid bruits Pulses: radial pulses present bilaterally 2+ GI Inspection: normal to inspection Palpation: soft, no aortic enlargement, no pulsatile masses and nontender Auscultation: normal bowel sounds Skin General skin exam: no rashes or lesions noted Neuro General: alert, awake, oriented x3, tone normal and moves all extremities Course <Joao Mtz NP - Last Filed: 01/05/19 10:19> Vital Signs Temperature 36.5 C 01/03/19 13:16 Pulse 70 01/03/19 13:16 Respiratory Rate 16 01/03/19 13:16 Blood Pressure 131/70 01/03/19 13:16 Pulse Oximetry 98 01/03/19 13:16 Temperature 36.5 C 01/03/19 13:16 Pulse 70 01/03/19 13:16 Respiratory Rate 16 01/03/19 13:16 Blood Pressure 131/70 01/03/19 13:16 Pulse Oximetry 98 01/03/19 13:16 Oxygen Delivery Method Room Air 01/03/19 13:16 Oxygen Flow Rate 0 01/03/19 13:16 Lab/Test Results Lab/Test Results: Laboratory Tests Range/Units 01/03/19 01/03/19 01/03/19 13:55 14:10 14:10 WBC (4.4-10.8) k/cumm 7.32 RBC (4.00-5.20) m/cumm 4.26 Hgb (12.0-15.5) g/dL 12.5 Hct (36.0-46.0) % 38.0 MCV (80-95) fL 89.2 MCH (27.0-33.0) pg 29.3 MCHC (32.0-36.0) g/dL 32.9 RDW (11.7-14.6) % 14.0 Plt Count (130-400) x1000/uL 298 MPV (8.0-11.0) fL 9.2 Immature Gran % 0.3 Neutrophils % 67.3 Lymphocytes % 23.6 Monocytes % 6.0 Eosinophils % 2.0 Basophils % 0.8 Absolute Neutrophils (1.2-6.7) k/cumm 4.92 Absolute Lymphocytes (1.2-3.4) k/cumm 1.73 Absolute Monocytes (0.11-0.7) k/cumm 0.44 Absolute Eosinophils (0.0-0.7) k/cumm 0.15 Absolute Basophils (0.0-0.2) k/cumm 0.06 Sodium (136-145) mmol/L 141 Potassium (3.5-5.1) mmol/L 3.5 Chloride (98-107) mmol/L 104 Carbon Dioxide (21.0-32.0) mmol/L 29.8 Anion Gap (3-11) mmol/L 7.2 BUN (7-18) mg/dL 13 Creatinine (0.55-1.02) mg/dL 0.95 Estimated GFR/1.73 m2 (mL/min/1.73m2) 58.50 Glucose (70-100) mg/dL 103 H Calcium (8.5-10.1) mg/dL 9.0 Magnesium (1.8-2.4) mg/dL 1.9 Total Bilirubin (0.2-1.0) mg/dL 0.3 AST (15-37) U/L 15 ALT (12-78) U/L 23 Alkaline Phosphatase (46-116) U/L 96 Troponin I (0.00-0.06) ng/mL < 0.02 Total Protein (6.4-8.2) g/dL 7.4 Albumin (3.4-5.0) g/dL 3.6 Urine Color (Yellow) Yellow Urine Clarity Clear Urine pH (5-8) 5.5 Ur Specific [place] (1.005-1.025) 1.020 Urine Protein (Negative) mg/dL Negative Urine Ketones (Negative) mg/dL Negative Urine Blood (Negative) Trace-intact H Urine Nitrite (Negative) Negative Urine Bilirubin (Negative) Negative Urine Urobilinogen (Up TO 0.2) EU/dL 0.2 Ur Leukocyte Esterase (Negative) Negative Urine RBC (0-2) 0-2 Urine WBC (0-5) HPF 0-2 Ur Epithelial Cells (Negative) HPF Moderate Urine Crystals (Negative) HPF Negative Urine Bacteria (Negative) HPF Few Urine Casts (Negative) LPF Negative Urine Mucus (Negative) Negative Ur Culture Indicated? No Urine Glucose (Negative) mg/dL Negative
[2019-01-03] MEDS: Omnipaque 350 MG/ML 100 ML BTL IJ (15:25)
[2019-01-03] MEDS: Esomeprazole 20 MG CAPCR PO (15:54)
[2019-01-03 15:55] VITALS: BP 135/71; PULSE 71; RESP 16; O2SAT 98
== END 2019-01-03 16:20 | disposition left against medical advice (07) ==
PROVIDERS: Emergency Provider Nurse Practitioner Family; PCP Family Medicine
DX: R07.9 Chest pain, unspecified (principal); K21.9 Gastro-esophageal reflux disease without esophagitis; F41.9 Anxiety disorder, unspecified; R10.13 Epigastric pain; Z53.29 Procedure and treatment not carried out because of patient's decision for other reasons; Z86.711 Personal history of pulmonary embolism; Z87.891 Personal history of nicotine dependence
CPT/HCPCS: 36415; 71275; 80053; 93005; 99285; 81003; 81015; 83735; 84484; 85025; 93010; 99284; J3490

== ENCOUNTER → 2019-02-04 10:44 | Outpatient (BNVA) | payer MEDICARE, BC, SELFPAY | PROVIDERS: PCP Family Medicine; Visit Provider Internal Medicine Cardiovascular Disease | DX: I47.1 Supraventricular tachycardia (principal); I10 Essential (primary) hypertension | CPT/HCPCS: 99213 ==

== ENCOUNTER → 2019-10-20 08:44 | Outpatient (BNVA) | payer MEDICARE, BC, SELFPAY | PROVIDERS: PCP Family Medicine; Referring Provider Family Medicine; Visit Provider Student in an Organized Health Care Education/Training Program | DX: M65.341 Trigger finger, right ring finger (principal) | CPT/HCPCS: 20600; 99214; J1030 ==

== ENCOUNTER 2019-10-31 01:28 | Outpatient (CLI) | payer MEDICARE, BC, SELFPAY ==
--- NOTE | 2019-10-31 13:04 | DI.MAMMO_ITS ---
EXAM: MG MAMMO SCREENING CLINICAL HISTORY: SCREENING Z12.31. TECHNIQUE: Full field digital CC and MLO mammographic images were obtained with 3D tomosynthesis and utilizing computer aided detection (CAD). COMPARISON: 2009 through 2018 FINDINGS: Breast Density - Category A - Almost entirely fatty Masses/Architectural Distortion: None seen. Microcalcifications: No suspicious pleomorphic-type calcifications are seen. Skin Thickening/Nipple Retraction: None. Axilla: Unremarkable. IMPRESSION: 1. BI-RADS category 1, negative. No significant interval change with no specific features of maligna ncy noted. 2. Unless there is more urgent need, screening mammography is recommended, as per [place] [employer] guidelines. A negative radiographic report should not delay biopsy if a dominant or clinically suspicious mass is present. Up to ten percent of cancers are not identified on mammography. A negative report may reinforce clinical impression. Adenosis and dense breasts may obscure an underlying neoplasm. False positive reports average 6 to 10%. Patient will receive a letter notifying them of these results.
== END 2019-10-31 01:48 ==
PROVIDERS: PCP Family Medicine; Visit Provider Family Medicine
DX: Z12.31 Encounter for screening mammogram for malignant neoplasm of breast (principal)
CPT/HCPCS: 77063; 77067

== ENCOUNTER 2019-12-23 08:21 | Outpatient (REF) | payer MEDICARE, BC, SELFPAY ==
[2019-12-23 20:09] LABS: HCT 39.8 % (36.0-46.0); Mean Corp. HGB Concentration 32.7 g/dL (32.0-36.0); Mean Corpuscular Hemoglobin 29.5 pg (27.0-33.0); Mean Corpuscular Volume 90.2 fL (80-95); Mean Platelet Volume 10.2 fL (8.0-11.0); Platelet Count 375 x1000/uL (130-400); RBC 4.41 m/cumm (4.00-5.20); RBC Distribution Width 14.3 % (11.7-14.6); White Blood Cell Count 6.43 k/cumm (4.4-10.8)
[2019-12-23 20:20] LABS: ALT 24 U/L (14-59); AST 18 U/L (15-37); Albumin 3.7 g/dL (3.4-5.0); Alkaline Phosphatase 83 U/L (46-116); Anion Gap 8.6 mmol/L (3-11); BUN 12 mg/dL (7-18); Bilirubin, Total 0.5 mg/dL (0.2-1.0); CO2 30.4 mmol/L (21.0-32.0); CREATININE 0.93 mg/dL (0.55-1.02); Calcium 9.4 mg/dL (8.5-10.1); Chloride 107 mmol/L (98-107); Estimated GFR 59.78 (mL/min/1.73m2); Glucose 89 mg/dL (74-106); Potassium 4.6 mmol/L (3.5-5.1); Sodium 146 mmol/L (136-145)
== END 2019-12-23 08:41 ==
LOC: NCHCN 08:21
PROVIDERS: PCP Family Medicine; Visit Provider Family Medicine
DX: E03.9 Hypothyroidism, unspecified (principal); R03.0 Elevated blood-pressure reading, without diagnosis of hypertension; I47.1 Supraventricular tachycardia; Z86.711 Personal history of pulmonary embolism
CPT/HCPCS: 80053; 85027

== ENCOUNTER 2020-04-16 11:28 | Outpatient (CLI) | payer MEDICARE, BC, SELFPAY ==
--- NOTE | 2020-04-16 11:15 | DI.RAD_ITS ---
EXAM: XR FOOT LT COMPLETE CLINICAL HISTORY: bunion and pes plansu. TECHNIQUE: 2D digital imaging was performed. COMPARISON: CR XR FOOT RT COMPLETE from 04/16/2020 FINDINGS: There is flattening of the plantar arch. There is spurring at the talonavicular joint. There is mil d hallux valgus. There are degenerative changes at the 1st MTP joint. Subchondral cysts are noted i n the medial 1st metatarsal head. Degenerative changes are also seen at the tibial talar joint. IMPRESSION: Hallux valgus, degenerative changes and pes planus. DATA REPOSITORY: RADIATION DOSE DELIVERED:
--- NOTE | 2020-04-16 11:15 | DI.RAD_ITS ---
EXAM: XR FOOT RT COMPLETE CLINICAL HISTORY: f/u pes planus. TECHNIQUE: 2D digital imaging was performed. COMPARISON: No exams were available for comparison FINDINGS: There has been previous surgery at the 1st metatarsal. Pin is noted distally. There are degenerativ e changes of 1st MTP joint but no hallux valgus. There is marked flattening of the plantar arch. Th ere is a small plantar calcaneal spur. There are degenerative changes of the talonavicular joint. T here is a subchondral cyst in the cuboid. There are degenerative changes between the cuboid and 3rd cuneiform as well as at the tarsal metatarsal joint. IMPRESSION: Pes planus and degenerative changes. Postsurgical changes of the 1st metatarsal. DATA REPOSITORY: RADIATION DOSE DELIVERED:
== END 2020-04-16 11:48 ==
PROVIDERS: PCP Family Medicine; Referring Provider Family Medicine; Visit Provider Student in an Organized Health Care Education/Training Program
DX: M21.41 Flat foot [pes planus] (acquired), right foot (principal); M21.42 Flat foot [pes planus] (acquired), left foot; M76.821 Posterior tibial tendinitis, right leg; M76.822 Posterior tibial tendinitis, left leg; M65.341 Trigger finger, right ring finger; M20.12 Hallux valgus (acquired), left foot
CPT/HCPCS: 99214; 73630

== ENCOUNTER 2020-05-08 08:27 | Day surgery (SDC) | payer MEDICARE, BC, SELFPAY ==
--- NOTE | 2020-05-08 07:28 | PDOC.DSDIS_ITS ---
Discharge Plan Disposition Patient Disposition: HOME Condition: Good Discharge Details Reason For Visit: RRF Trigger Finger Attending Provider: Yohannes Lee Primary Care Provider: Tamara Gomez Home Meds and New Rx's Prescriptions: New ibuprofen 600 mg tablet 600 mg PO TID PRNQty: 60 RF: 3 Continued aspirin 81 mg tablet,delayed release (DR/EC) 81 mg PO DAILY RF: 0 metoprolol tartrate 12.5 MG tablet 12.5 mg PO PRN PRNRF: 0 acetaminophen [Mapap Extra Strength] 500 MG tablet 1,000 mg PO TID Qty: 60 RF: 2 Discharge Instructions Stand Alone Forms: Rosa Larios Finger Release Referrals: Yohannes Lee MD [ [facility] STAFF PHYSICIAN] - Activity:: Elevate Remove Dressings/Wound Care:: 48 hours Shower/Bathe:: 48 hours Diet:: As Tolerated Discharge Orders Discharge Orders: Discharge Order (Routine); Ordered 05/08/20 Ordered By: Yohannes Lee DS: Diagnosis Discharge Diagnosis (1) Trigger finger, right ring finger: Status: Acute
[2020-05-08 08:30] VITALS: BP 143/83; PULSE 72; RESP 16; TEMP 36.3; O2SAT 97
[2020-05-08] MEDS: Sodium Bicarbonate 50 MEQ/50 ML VIAL ×2 (10:35)
--- NOTE | 2020-05-08 11:48 | W.PM.OP ---
Date of service: 05/08/20 Time of Service: 10:48 Operative Note Operative Note DATE OF PROCEDURE: 05/08/20 PRE-OP DIAGNOSIS: Right Ring Finger Trigger Finger POST-OP DIAGNOSIS: same PROCEDURE: Trigger Finger Release - Right Ring Finger SURGEON: Yohannes Lee ANESTHESIA: local ESTIMATED BLOOD LOSS: 0 PATHOLOGY: none sent COMPLICATIONS: None Patient was transported to: same day Patient's condition: stable Indications: I have seen Dana in clinic for symptoms of a trigger finger. The catching, clicking, locking, and pain limited function. The diagnosis of trigger finger was evident. The symptoms had not responded to conservative measures. I discussed trigger finger release with the patient. I reviewed the risks of the procedure to include, but not limited to, bleeding, infection, pain, stiffness, incomplete release, damage to nerves or vessels, continued catching, recurrence. Despite these risks, the patient elected to proceed. Findings: There was a tightened A1 sharda which was released. The flexor tendons were inspected and the patient was able to move the finger without any catching, clicking, or locking. Procedure Description: Dana was greeted in the preoperative holding area where the correct side was identified and marked. The consent was reviewed with the patient and signed. All questions were answered. She was taken back to the operating room. The patient was placed into the supine position on the operating room table with the right arm on an arm board. All bony prominences were well padded. No prophylactic antibiotics were administered since this was a clean, elective hand surgical case. The right arm was then prepped with Chloraprep and draped in a standard fashion with stockinette and extremity drape. A timeout to confirm correct identity, side and site, procedure, allergies, anesthesia, and medical concerns was performed. The surgical site was marked as a longitudinal incision directly over the A1 sharda of the right ring finger. This was confirmed with palpation during finger flexion. This area, overlying the metacarpal head, was then anesthetized with 1% Lidocaine. The patient tolerated this well and once the anesthetic had setup, the procedure began. A longitudinal incision was made through skin only, approximately 1cm. The deep tissues were dissected bluntly. Once the A1 sharda and flexor tendons were identified the soft tissue including neurovascular structures were retracted medially and laterally. There were no crossing structures over the A1 sharda. The proximal edge of the sharda was identified and the sharda was incised with tenotomy scissors. There was a release of the tendons once this was fully released. The tendons were then removed from the wound and inspected. Excess synovium was resected. The tendons were then returned and the patient was asked to move the finger into deep flexion and back to extension. There was no recreation of the pre-operative symptoms. The hand was then once more inspected for any A0 sharda or area of possible constriction. The wound was then irrigated and the skin was closed with a 4-0 Nylon. This was dressed with gauze and a Conform dressing. The patient tolerated the procedure well and was returned to the Same Day Surgery area in a stable condition suffering no known complication.
== END 2020-05-08 11:06 | disposition home or self-care (01) ==
PROVIDERS: PCP Family Medicine; Visit Provider Student in an Organized Health Care Education/Training Program
PROC: (CPT 26055; principal; 2020-05-08 10:15)
DX: M65.341 Trigger finger, right ring finger (principal)
CPT/HCPCS: 26055

== ENCOUNTER 2020-08-13 16:33 | Outpatient (REF) | payer MEDICARE, BC, SELFPAY | END 2020-08-13 16:53 | LOC: LBN 16:33 | PROVIDERS: PCP Family Medicine; Visit Provider Nurse Practitioner Adult Health | DX: N39.0 Urinary tract infection, site not specified (principal) | CPT/HCPCS: 87077; 87086; 87186 ==

== ENCOUNTER 2020-08-21 11:35 | Outpatient (CLI) | payer MEDICARE, BC, SELFPAY ==
--- NOTE | 2020-08-21 09:38 | DI.RAD_ITS ---
EXAM: XR HIP LT COMPLETE AP PELVIS CLINICAL HISTORY: LT HIP PAIN,M25.552 TECHNIQUE: COMPARISON: CR XR hip LT complete AP pelvis from 10/06/2018 CR XR LUMBAR SPINE COMPLETE from 08/21/2020 FINDINGS: Three views of the left hip and pelvis were obtained. There is a total hip joint replacement positio n on left. The components appear well seated. There are minimal degenerative changes of the right h ip. Five views of the lumbosacral spine were also obtained. There is a minimal biconvex thoracolumbar sc oliosis. There are moderate degenerative changes of the SI joints, right greater than left. There i s disc space narrowing at L3-4 and L4-5 and to a lesser degree at L5-S1, consistent with disc degener ation. There is vacuum disc phenomenon at each of these levels. There is mild pseudo spondylolisthesis of L4 on L5. There is no evidence of spondylolysis as visuali zed on the oblique views obtained. There are prominent hypertrophic degenerative changes involving t he facet joints and endplates throughout the lumbar region. No fracture identified. IMPRESSION: Severe DJD lumbosacral spine. SI joint degenerative change, right greater than left. Intact left hip prosthesis in position. RADIATION DOSE DELIVERED: Total DLP Total DLP
== END 2020-08-21 11:55 ==
PROVIDERS: PCP Family Medicine; Visit Provider Nurse Practitioner Family
DX: M47.816 Spondylosis without myelopathy or radiculopathy, lumbar region (principal); M16.11 Unilateral primary osteoarthritis, right hip
CPT/HCPCS: 72110; 73502

== ENCOUNTER → 2020-09-06 11:28 | Outpatient (BNVA) | payer MEDICARE, BC, SELFPAY | PROVIDERS: PCP Family Medicine; Referring Provider Family Medicine; Visit Provider Student in an Organized Health Care Education/Training Program | DX: M43.16 Spondylolisthesis, lumbar region (principal); M54.16 Radiculopathy, lumbar region | CPT/HCPCS: 99214 ==

== ENCOUNTER 2021-01-22 07:46 | Outpatient (CLI) | payer MEDICARE, BC, SELFPAY ==
--- NOTE | 2021-01-22 06:00 | DI.RAD_ITS ---
Exam(s) XR PAIN CLINIC LUMBAR SP 2V EXAM: XR PAIN CLINIC LUMBAR SP 2V CLINICAL HISTORY: Dx: Lumbar Spondylosis TECHNIQUE: 2D and realtime digital imaging was performed. CONTRAST MATERIAL: Refer to procedure report. COMPARISON: No exams were available for comparison FINDINGS: Fluoroscopy was provided for Dr. Ball during the performance of a lumbar medial branch block. Please r efer to the procedure report for complete details. Ka,r=13.08 mGy IMPRESSION:
[2021-01-22 07:56] VITALS: BP 140/73; PULSE 75; RESP 18; TEMP 36.8; O2SAT 100
[2021-01-22] MEDS: Omnipaque 240 MG/ML 50 ML BTL IJ (08:45)
[2021-01-22] MEDS: Bupivacaine 0.5% Pres-Free 10 ML VIAL IJ (08:45)
[2021-01-22 08:46] VITALS: BP 155/89; PULSE 67; RESP 21; O2SAT 100
--- NOTE | 2021-01-22 08:48 | PDOC.PAIN ---
Pain Clinic Procedure Note Procedure Note Procedure Note: Lumbar/Sacral Medial Branch Blocks MJ FAITH has been referred to the [facility] for lumbar/sacral medial branch blocks. Pre-operative diagnosis: lumbar spondylosis Post-operative diagnosis: same as above COMMENTS: patient was evaluated by Ms Lucy Nino APRN in our pain clinic, she has axial back pain, as well as left hip pain. she is status post hip replacement and she was told that she has left hip bursitis. She denies significant radiating leg pain. Predominantly axial back pain that is described as a dull ache, average pain level 6 out of 10, with functional impairment such as loading dishes, being able to enjoy turkey hunting. Patient was interviewed and the medical record reviewed. There were no medical, pharmacologic, radiographic or other structural contraindications to attempting fluoroscopically guided local anesthetic lumbar/sacral medial branch blocks. Risks and expected side effects as well as potential benefit of the procedure were reviewed and voiced concerns addressed. The printed consent form was signed and witnessed. Standard time-out procedure was performed. Patient was placed in the prone position on the fluoroscopy table and automated blood pressure cuff and pulse oximeter applied. The skin entry points for approaching the anatomic target points of the segmental medial branches of bilateral L3, L4, L5-DR were identified with anfluoroscopy and marked. Following thorough Chlorhexadine preparation of the skin and draping and 1% lidocaine infiltration of the skin entry points and subcutaneous tissues, a 22 gauge spinal needle was placed under fluoroscopic guidance down on to the target point for each respective segmental medial branch.Position was confirmed in A/P, oblique and lateral views with 0.25ml of omnipaque 240. Coult be this method 0.5ml 0.5% Bupivacaine was injected. Vital signs were stable throughout the procedure and were as recorded in the docflowsheet by the nursing staff. Follow up plans and appointments were discussed and was instructed to keep careful note of how the usual pain was modified by these injections. Specifically was asked to keep a pain diary for the next 24 hours using a numeric pain scale of 0-10 and report these results at the follow-up visit. Post procedure instruction was given as documented in the nursing documentation and having met discharge criteria. Patient was discharged from the Pain Management Center. Based on the medial branches blocked today, if the patient has adequate relief and we are able to proceed to radiofrequency ablation, the treatment should result in the denervation of the bilateral L4/5 and L5/S1. We would expect to denervate a total of 4 facets during the radiofrequency ablation. COMMENTS: patient reports 6 out of 10 VAS pre-procedure pain level, immediately after procedure, she reports no significant change in her pain level, remains 6 out of 10 VAS scale. Josh Sharif MD Pain Management CC: Tamara Gomez
== END 2021-01-22 07:47 | disposition home or self-care (01) ==
LOC: PC 07:46
PROVIDERS: PCP Family Medicine; Visit Provider Internal Medicine
DX: M47.816 Spondylosis without myelopathy or radiculopathy, lumbar region (principal)
CPT/HCPCS: 64493; 64494; 72100; Q9967

== ENCOUNTER 2021-03-12 12:25 | Outpatient (CLI) | payer MEDICARE, BC, SELFPAY ==
--- NOTE | 2021-03-12 12:30 | DI.RAD_ITS ---
Exam(s) XR PAIN CLINIC SACRIOILIAC 2V EXAM: XR PAIN CLINIC SACRIOILIAC 2V CLINICAL HISTORY: Dx: Sacroiliac Joint Dysfunction TECHNIQUE: 2D and realtime digital imaging was performed. COMPARISON: No exams were available for comparison FINDINGS: C-arm fluoroscopy was utilized by Dr. Sharif during reported bilateral SI joint injection. Hard copies c onfirm injection both SI joints. IMPRESSION: RADIATION DOSE DELIVERED: clare Layne= 29.1 mGy
[2021-03-12 12:33] VITALS: BP 121/66; PULSE 82; RESP 18; TEMP 36.6; O2SAT 99
--- NOTE | 2021-03-12 13:24 | PDOC.PAIN_ITS ---
Pain Clinic Procedure Note Procedure Note Procedure Note: INTRA-ARTICULAR SI JOINT INJECTION Date of Service: March 12, 2021 Patient: MJ FAITH Provider: Josh Sharif MD COMMENTS: patient reports bilateral lower back pain with radiation down bilateral buttocks and bilateral hips. patient was originally scheduled for R SI joint injection. I performed a pre-procedure physical examination where patient has tenderness over bilateral PSIS, as well as tenderness over bilateral greater trochanteric bursas. patient reports average pain level to be 6/10. Pre- procedure VAS score 7 out of 10. Given patient has bilateral symptoms, procedure switched to bilateral SI joint injections. Pre-operative diagnosis: sacroiliac joint dysfunction Post-operative diagnosis: sacroiliac joint dysfunction MJ FAITH has been [facility] for intra- articular SI joint injection. Ms Faith was interviewed and the medical record reviewed. There were no medical, pharmacologic, radiographic or other structural contraindications to attempting fluoroscopically guided intra-articular SI joint injection. Risks and expected side effects as well as potential benefit of the procedure were reviewed with MJ , and her voiced concerns were addressed. The printed consent form was signed and witnessed. Standard time-out procedure was performed. MJ was placed in the prone position on the fluoroscopy table and automated blood pressure cuff and pulse oximeter applied. The skin entry point for approaching the bilateral sacroiliac joint was identified under the most advantageous fluoroscopic view and marked. Following thorough Chlorhexadine preparation of the skin and draping and 1% lidocaine infiltration of the skin entry point and subcutaneous tissues, a 22 gauge spinal needle was placed under fluoroscopic guidance into the bilateral sacroiliac joint. Intra-articular placement was confirmed by a clear arthrogram resulting from the injection of 0.25ml Omnipaque 240. 2ml 1% Lidocaine and 80mg Depomedrol was injected intra- articularily (each joint received 40mg/ml of Depomedrol mixed with 1cc of 1% lidocaine) with an initial reproduction of a significant component of the usual pain. The needle was flushed with 0.5 cc of 1% Lidocaine and removed without difficulty. (49 cc of Omnipaque was wasted) MJ alicea vital signs were stable throughout the procedure and were as recorded in the docflowsheet by the nursing staff. If given, dosages of intravenous drugs for anxiolysis and analgesia were documented in MAR. Follow up plans and appointments were discussed with the MJ . Post procedure instruction was given as documented in nursing documentation and having met discharge criteria, MJ was [facility] from the [facility]. COMMENTS: No complications. Post procedure VAS score is 1 out of 10 on R side and 0 out of 10 on left side. F/U with Ms Lucy Nino APRN on prn basis. I personally performed this entire procedure. Josh Sharif MD ABPN-subspecialty board certification in Pain Medicine Attending Physician-Pain Management
[2021-03-12] MEDS: Omnipaque 240 MG/ML 50 ML BTL IJ (13:36)
[2021-03-12] MEDS: methylPREDNISolone ACETATE 80 MG/ML VIAL IJ (13:37)
[2021-03-12] MEDS: Lidocaine 1% Pres-Free 5 ML VIAL IJ (13:37)
[2021-03-12 13:38] VITALS: BP 139/70; PULSE 79; RESP 19; O2SAT 100
== END 2021-03-12 12:26 | disposition home or self-care (01) ==
LOC: PC 12:26
PROVIDERS: PCP Family Medicine; Visit Provider Internal Medicine
DX: M53.3 Sacrococcygeal disorders, not elsewhere classified (principal)
CPT/HCPCS: 27096; 72200; J1040; Q9967

== ENCOUNTER 2021-04-04 09:06 | Outpatient (REF) | payer MEDICARE, BC, SELFPAY ==
[2021-04-04 13:27] LABS: HCT 40.8 % (36.0-46.0); HGB 13.1 g/dL (11.2-15.7); MCH 29.4 pg (27.0-33.0); MCHC 32.1 % (32.0-36.0); MCV 91.7 fL (80-95); MPV 9.8 fL (8.0-11.0); Platelet Count 315 10^3/uL (130-400); RBC 4.45 10^6/uL (3.93-5.22); RDW 13.7 % (11.7-14.6); RDW-SD 46.6 fL; WBC 7.42 10^3/uL (4.4-10.8)
[2021-04-04 14:03] LABS: ALT 26 U/L (14-59); AST 12 U/L (15-37); Albumin 3.6 g/dL (3.4-5.0); Alkaline Phosphatase 86 U/L (46-116); Anion Gap 5.8 mmol/L (3-11); BUN 13 mg/dL (7-18); Bilirubin, Total 0.4 mg/dL (0.2-1.0); CO2 31.2 mmol/L (21.0-32.0); CREATININE 1.1 mg/dL (0.55-1.02); Calcium 9.4 mg/dL (8.5-10.1); Chloride 106 mmol/L (98-107); Glucose 92 mg/dL (74-106); Potassium 4.9 mmol/L (3.5-5.1); Sodium 143 mmol/L (136-145); Total Protein 6.9 g/dL (6.4-8.2)
[2021-04-05 22:16] LABS: Calculated LDL 126 mg/dL (<100); Cholesterol 216 mg/dL (<200); HDL Cholesterol 78 mg/dL (40-60); Triglyceride 63 mg/dL (<150)
[2021-04-06 13:40] LABS: Vitamin D 25 Total 26.8 ng/mL (30-100)
== END 2021-04-04 09:07 | disposition home or self-care (01) ==
LOC: NCHCN 09:06
PROVIDERS: PCP Family Medicine; Visit Provider Family Medicine
DX: Z00.00 Encounter for general adult medical examination without abnormal findings; R03.0 Elevated blood-pressure reading, without diagnosis of hypertension; E66.9 Obesity, unspecified; I47.1 Supraventricular tachycardia
CPT/HCPCS: 80053; 80061; 82306; 85027

== ENCOUNTER 2021-04-05 03:13 | Outpatient (CLI) | payer MEDICARE, BC, SELFPAY ==
--- NOTE | 2021-04-05 | DI.RAD_ITS ---
Exam(s) XR LUMBAR SPINE COMPLETE EXAM: XR LUMBAR SPINE COMPLETE CLINICAL HISTORY: ? INSTABILITY,SPONDYLOLISTHESIS,M43.16. TECHNIQUE: 2D digital imaging was performed. Flexion and extension lateral views were performed in addition to the routine views.. COMPARISON: CR XR LUMBAR SPINE COMPLETE from 08/21/2020 FINDINGS: BONES: No fracture or destructive lesion. Vertebral bodies are normal in height.. Facet degenerative changes are seen throughout. Left hip prosthesis. No spondylolysis DISKS: Moderate to severe narrowing of the L1-2 disc, greater on the left side causing mild scoliosis . Severe narrowing of the L3-4 disc, greater on the left, also contributing to debt degenerative sco liosis. Moderate to severe narrowing of the L4-5 and L5-S1 disc spaces.. ALIGNMENT: Slight spondylolisthesis at L3-4, L4-5 and L5-S1 secondary to facet joint degenerative ch anges. There is no significant change between neutral, flexion and extension views. SOFT TISSUE: Normal. IMPRESSION: Advanced degenerative disc changes and facet degenerative changes. DATA REPOSITORY: RADIATION DOSE DELIVERED:
== END 2021-04-05 03:33 ==
PROVIDERS: PCP Family Medicine; Visit Provider Neurological Surgery
DX: M47.817 Spondylosis without myelopathy or radiculopathy, lumbosacral region (principal); M43.16 Spondylolisthesis, lumbar region
CPT/HCPCS: 72110

== ENCOUNTER 2021-04-15 00:51 | Outpatient (CLI) | payer MEDICARE, BC, SELFPAY ==
--- NOTE | 2021-04-15 | DI.MAMMO_ITS ---
Exam(s) MAMMO SCREENING EXAM: MAMMO SCREENING CLINICAL HISTORY: SCREENING,Z12.31. TECHNIQUE: Bilateral full field digital CC and MLO mammographic images were obtained with 3D tomosyn thesis and utilizing computer aided detection (CAD). COMPARISON: Prior mammograms dating back to 2010, the most recent being October 2019. FINDINGS: No new significant radiograph findings in the right breast In the left breast there is a new noncalcified well-defined nodule measuring 3 millimeters and locate d approximately 8 cm in from the nipple on the MLO view. Approximately 12 o'clock position. There is no significant architectural distortion nor skin thickening-retraction. No malignant-appearing microcalcification groups IMPRESSION: No radiographic evidence of malignancy in the right breast. In the left breast there is a new 3 millimeter nodule at approximately 12 o'clock position of the lef t breast. Ultrasound is recommended to determine if it is solid or cystic. BI-RADS Category 0 - Assessment Incomplete: Need additional imaging evaluation Breast Density - Category A - Almost entirely fatty Breast density Category C or D implies that the patient has dense breast tissue. Dense breast tissue can make it harder to find cancer on a mammogram. Dense breast tissue is also associated with an incr eased risk of breast cancer. This information about the result of the mammogram report was provided to the patient to raise their awareness. Use this report when you speak with the patient about their risks for breast cancer, which includes their family history. At that time, you may recommend additional screening tests (Ultrasoun d or MRI) as these tests may add significant information. A negative radiographic report should not delay biopsy if a dominant or clinically suspicious mass is present. Up to ten percent of cancers are not identified on mammography. A negative report may reinforce clinical impression. Adenosis and dense breasts may obscure an underlying neoplasm. False positive reports average 6 to 10%. Patient will receive a letter notifying them of these results.
== END 2021-04-15 01:11 ==
PROVIDERS: PCP Family Medicine; Visit Provider Family Medicine
DX: Z12.31 Encounter for screening mammogram for malignant neoplasm of breast (principal); R92.8 Other abnormal and inconclusive findings on diagnostic imaging of breast; N63.25 Unspecified lump in the left breast, overlapping quadrants
CPT/HCPCS: 77063; 77067

== ENCOUNTER 2021-05-03 03:27 | Outpatient (CLI) | payer MEDICARE, BC, SELFPAY ==
--- NOTE | 2021-05-03 | DI.US_ITS ---
Exam(s) US BREAST LT LIMITED EXAM: US BREAST LT LIMITED CLINICAL HISTORY: F/U MAMMO, NEW LT BREAST NODULE, ? SOLID OR CYSTIC TECHNIQUE: Ultrasound left breast performed using standard protocol. COMPARISON: Comparison with mammogram from 04/15/2021. FINDINGS: There is a well-circumscribed 3 x 3 x 3 mm nodule at the 12 o'clock position of the left breast 8 cm from the nipple. This would appear to correspond to the mammographic abnormality. No internal blood flow, posterior acoustic shadowing or enhancement is seen. There does appear to be a small cystic c omponent to the nodule. IMPRESSION: 1. 3 mm nodule in the left breast is seen sonographically to correspond to the mammographic abnormali ty. No definite evidence for malignancy at this time. 2. Findings were discussed with the patient on the date of the examination. BI-RADS Category 3 - Probably Benign Finding: Recommend follow-up imaging in 3 months DATA REPOSITORY:
== END 2021-05-03 03:47 ==
PROVIDERS: PCP Family Medicine; Visit Provider Family Medicine
DX: N63.25 Unspecified lump in the left breast, overlapping quadrants (principal)
CPT/HCPCS: 76642

== ENCOUNTER 2021-08-05 01:43 | Outpatient (CLI) | payer MEDICARE, BC, SELFPAY ==
--- NOTE | 2021-08-05 | DI.US_ITS ---
Exam(s) US BREAST LT LIMITED EXAM: US BREAST LT LIMITED CLINICAL HISTORY: 3 MO F/U, F/U ABNL MAMMO. TECHNIQUE: Limited ultrasound of the left breast was performed. COMPARISON: Prior mammograms were reviewed. Today's diagnostic left breast mammogram was also review ed FINDINGS: This limited left breast ultrasound again reveals the previously described 12 o'clock position findin g which is a round 3 x 3 millimeter well-defined finding which has the appearance of a probable hemor rhagic microcyst. This corresponds to the finding on the mammogram. It has not increased in size wh en compared to the ultrasound exam of April 2021 IMPRESSION: Stable appearance of 3 millimeter probable hemorrhagic microcysts at 12 o'clock position, this corres pond to the finding on the mammogram Appropriate follow-up is to keep this patient on her yearly mammogram schedule, this implying that he r next mammogram would be in 9 months and she should have repeat breast ultrasound examination at belen t time. Earlier imaging would be recommended if there is a self detected breast change noted BI-RADS Category 2 - Benign Findings Breast Density - Category A - Almost entirely fatty Breast density Category C or D implies that the patient has dense breast tissue. Dense breast tissue can make it harder to find cancer on a mammogram. Dense breast tissue is also associated with an incr eased risk of breast cancer. This information about the result of the mammogram report was provided to the patient to raise their awareness. Use this report when you speak with the patient about their risks for breast cancer, which includes their family history. At that time, you may recommend additional screening tests (Ultrasoun d or MRI) as these tests may add significant information. A negative radiographic report should not delay biopsy if a dominant or clinically suspicious mass is present. Up to ten percent of cancers are not identified on mammography. A negative report may reinforce clinical impression. Adenosis and dense breasts may obscure an underlying neoplasm. False positive reports average 6 to 10%. Patient will receive a letter notifying them of these results.
--- NOTE | 2021-08-05 | DI.MAMMO_ITS ---
Exam(s) MG MAMMO DIAGNOSTIC UNI EXAM: MG MAMMO DIAGNOSTIC UNI-LEFT CLINICAL HISTORY: DIAGNOSTIC, F/U ABNL MAMMO, 3 MO F/U. TECHNIQUE: BOTH CC AND MLO mammographic images of the left breast were obtained with 3D tomosynthesi s technique and utilizing computer aided detection (CAD). COMPARISON: Prior mammograms dating back to 2011, the most recent being March 2021. Ultrasound of Apr who is reviewed. FINDINGS: The solitary nodule at the 12 o'clock position is unchanged from the screening mammogram of 1. No other significant left breast mammographic findings. This is again shown to be what appears to be hemorrhagic microcyst on ultrasound exam today, measurin g 3 x 3 millimeters, located at 12 o'clock position IMPRESSION: Stable 3 millimeter 12 o'clock position left breast nodule, also unchanged on ultrasound. Appropriate follow-up is to keep this patient on her yearly mammogram schedule, with earlier imaging if a self detected breast change is noted.. The patient was informed of the findings and follow-up recommendations prior to leaving the [facility] today. BI-RADS Category 2 - Benign Findings Breast Density - Category A - Almost entirely fatty Breast density Category C or D implies that the patient has dense breast tissue. Dense breast tissue can make it harder to find cancer on a mammogram. Dense breast tissue is also associated with an incr eased risk of breast cancer. This information about the result of the mammogram report was provided to the patient to raise their awareness. Use this report when you speak with the patient about their risks for breast cancer, which includes their family history. At that time, you may recommend additional screening tests (Ultrasoun d or MRI) as these tests may add significant information. A negative radiographic report should not delay biopsy if a dominant or clinically suspicious mass is present. Up to ten percent of cancers are not identified on mammography. A negative report may reinforce clinical impression. Adenosis and dense breasts may obscure an underlying neoplasm. False positive reports average 6 to 10%. Patient will receive a letter notifying them of these results.
== END 2021-08-05 02:03 ==
PROVIDERS: PCP Family Medicine; Visit Provider Family Medicine
DX: Z12.31 Encounter for screening mammogram for malignant neoplasm of breast (principal); R92.8 Other abnormal and inconclusive findings on diagnostic imaging of breast; N60.02 Solitary cyst of left breast; N60.82 Other benign mammary dysplasias of left breast
CPT/HCPCS: 76642; 77061; 77065; G0279

== ENCOUNTER 2021-08-09 13:17 | Outpatient (REF) | payer MEDICARE, BC, SELFPAY | END 2021-08-09 13:18 | disposition home or self-care (01) | LOC: LBN 13:17 | PROVIDERS: PCP Family Medicine; Visit Provider Nurse Practitioner Adult Health | DX: R39.89 Other symptoms and signs involving the genitourinary system (principal); R82.998 Other abnormal findings in urine | CPT/HCPCS: 87077; 87086; 87186 ==

== ENCOUNTER 2021-08-23 10:56 | Outpatient (REF) | payer MEDICARE, BC, SELFPAY | END 2021-08-23 10:57 | disposition home or self-care (01) | LOC: LBN 10:56 | PROVIDERS: PCP Family Medicine; Visit Provider Nurse Practitioner Adult Health | DX: R39.9 Unspecified symptoms and signs involving the genitourinary system (principal) | CPT/HCPCS: 87086 ==

== ENCOUNTER 2021-12-06 15:14 | Outpatient (REF) | payer MEDICARE, BC, SELFPAY | END 2021-12-06 15:15 | disposition home or self-care (01) | LOC: LBN 15:14 | PROVIDERS: PCP Family Medicine; Visit Provider Nurse Practitioner | DX: Z87.440 Personal history of urinary (tract) infections (principal) | CPT/HCPCS: 87077; 87086; 87186 ==

== ENCOUNTER 2021-12-12 16:12 | Outpatient (REF) | payer MEDICARE, BC, SELFPAY | END 2021-12-12 16:13 | disposition home or self-care (01) | LOC: LBN 16:12 | PROVIDERS: PCP Family Medicine; Visit Provider Nurse Practitioner Adult Health | DX: Z87.440 Personal history of urinary (tract) infections (principal); R39.9 Unspecified symptoms and signs involving the genitourinary system | CPT/HCPCS: 87086 ==

== ENCOUNTER 2021-12-17 14:43 | Outpatient (REF) | payer MEDICARE, BC, SELFPAY | END 2021-12-17 14:44 | disposition home or self-care (01) | LOC: NCHCN 14:43 | PROVIDERS: PCP Family Medicine; Visit Provider Family Medicine | DX: N39.0 Urinary tract infection, site not specified (principal) | CPT/HCPCS: 87086 ==

== ENCOUNTER → 2022-06-17 01:30 | Outpatient (CLI) | payer MEDICARE, BC, SELFPAY ==
--- NOTE | 2022-06-17 08:37 | DI.MAMMO_ITS ---
Exam(s) MAMMO SCREENING EXAM: MAMMO SCREENING CLINICAL HISTORY: SCREENING, Z12.31 TECHNIQUE: Bilateral full field digital CC and MLO mammographic images were obtained with 3D tomosyn thesis and utilizing computer aided detection (CAD). COMPARISON: Available for comparison. FINDINGS: Masses/Architectural Distortion: None seen. Microcalcifications: No suspicious pleomorphic-type are seen. Skin Thickening/Nipple Retraction: None. IMPRESSION: 1. No significant interval change with no specific features of malignancy noted. 2. Unless there is more urgent need, screening mammography is recommended, as per [employer] [employer] guidelines. BI-RADS Category 1 - Negative Breast Density - Category B - Scattered areas of fibroglandular density Breast density category C or D implies that the patient has dense breast tissue. Dense breast tissue is very common and is not abnormal but dense breast tissue can make it harder to find cancer on a ma mmogram. Also, dense breast tissue may increase their breast cancer risk. This information about the result of the mammogram report was provided to the patient to raise their awareness. Use this report when you speak with the patient about their risks for breast cancer, which includes their family hist ory. At that time, you may recommend for more screening tests (Ultrasound or MRI) as they might be us eful based on their risk. A negative radiographic report should not delay biopsy if a dominant or clinically suspicious mass is present. Up to ten percent of cancers are not identified on mammography. A negative report may reinforce clinical impression. Adenosis and dense breasts may obscure an underlying neoplasm. False positive reports average 6 to 10%. Patient will receive a letter notifying them of these results.
== END ==
PROVIDERS: PCP Family Medicine; Visit Provider Family Medicine
DX: Z12.31 Encounter for screening mammogram for malignant neoplasm of breast (principal)
CPT/HCPCS: 77063; 77067

== ENCOUNTER 2022-12-20 12:53 | Outpatient (REF) | payer MEDICARE, BC, SELFPAY ==
[2022-12-20 17:16] LABS: Bacteria Many HPF (Negative); C & S Indicated? C&S Done As Ordered; Casts Negative LPF (Negative); Crystals Negative HPF (Negative); Epithelial Cells Few HPF (Negative); Mucus Negative (Negative); WBC >50 HPF (0-5)
== END 2022-12-20 12:54 | disposition home or self-care (01) ==
LOC: LBN 12:53
PROVIDERS: PCP Family Medicine; Visit Provider Physician Assistant Medical
DX: N39.0 Urinary tract infection, site not specified (principal)
CPT/HCPCS: 87077; 81015; 87086; 87186

== ENCOUNTER 2023-01-12 15:06 | Outpatient (REF) | payer MEDICARE, BC, SELFPAY | END 2023-01-12 15:07 | disposition home or self-care (01) | LOC: LBN 15:06 | PROVIDERS: PCP Family Medicine; Visit Provider Nurse Practitioner Family | DX: R30.0 Dysuria (principal) | CPT/HCPCS: 87077; 87086; 87186 ==

== ENCOUNTER 2023-01-22 05:48 | Observation (INO) | payer MEDICARE, BC, SELFPAY ==
[2023-01-22] VITALS (29 sets, daily range): BP systolic 108–172; BP diastolic 72–108; PULSE 63–169; RESP 10–20; TEMP 36.3–36.7; O2SAT 93–98
--- NOTE | 2023-01-22 05:45 | RT.EKG_ITS ---
APPROVED REPORT Exam: Resting ECG Reason for Exam: sob Patient Location: E HR:95 bpm ECG Measurements Heart Rate 95 AXIS ND 190 P 43 QRSd 136 QRS 35 QT 351 T 0 QTc 443 Conclusion Incomplete analysis due to missing data in precordial lead(s) Sinus rhythm...normal P axis, V-rate 60- 99 Right bundle branch block...QRSd>120, terminal axis(90,270)
[2023-01-22] MEDS: Normal Saline 1,000 ML 1000 ML IV (06:05)
[2023-01-22 06:09] LABS: Abs Immature Grans 0.04 10^3/uL (0.0-0.06); Absolute Basophil Count 0.08 10^3/uL (0.0-0.2); Absolute Eosinophil Count 0.19 10^3/uL (0.0-0.7); Absolute Lymphocyte Count 1.79 10^3/uL (1.2-3.4); Absolute Monocyte Count 0.49 10^3/uL (0.1-0.8); Absolute Neutrophil Count 6.24 10^3/uL (1.2-6.7); Basophils % 0.9; Eosinophils % 2.2; HCT 39.1 % (36.0-46.0); HGB 12.7 g/dL (11.2-15.7); Immature Grans % 0.5; Lymphocytes % 20.3; MCH 28.5 pg (27.0-33.0); MCHC 32.5 % (32.0-36.0); MCV 88 fL (80-95); MPV 8.7 fL (8.0-11.0); Monocytes % 5.5; Neutrophils % 70.6; Platelet Count 372 10^3/uL (130-400); RBC 4.45 10^6/uL (3.93-5.22); RDW 13.4 % (11.7-14.6); RDW-SD 43.4 fL; WBC 8.83 10^3/uL (4.4-10.8)
--- NOTE | 2023-01-22 06:21 | W.ED.GENAD ---
Discharge Plan Discharge Details Chief Complaint: Arrhythmia Clinical Impression: Light-headed Primary Care Provider: Tamara Gomez ED Provider: Velasquez Marie Home Meds and New Rx's Prescriptions: No Action aspirin 81 mg tablet,delayed release (DR/EC) 81 mg PO DAILY ascorbic acid (vitamin C) [Vitamin C] 500 mg Tablet 500 mg PO DAILY vitamin B complex Tablet 1 tab PO DAILY hydrocortisone 2.5 % Cream 1 applic TOPICAL BID PRN estradiol [Estrace] 0.01 % (0.1 mg/gram) Cream 1 g VAGINAL DAILY alum-mag hydroxide-simeth [Mylanta Maximum Strength] 400-400-40 mg/5 mL Suspension See Rx Instructions .ROUTE .COMPLEX Rx Instructions: PRN As directed Gaviscon 80-14.2 mg Tablet,Chewable 1 tab PO PRN PRN Gareth-Mag 200 mg calcium- 100 mg Tablet,Chewable 1 tab PO DAILY cranberry 400 mg capsule 400 mg PO DAILY Rx Instructions: administer with a meal amoxicillin 500 mg tablet 2,000 mg PO ONCE Qty: 4 0RF Rx Instructions: TAKE 4 TABS WITHIN ONE HOUR OF DENTAL PROCEDURE metoprolol tartrate 12.5 MG tablet 12.5 mg PO PRN PRN Rx Instructions: 01/03/19 pt uses for SVT prn ibuprofen 600 mg tablet 600 mg PO TID PRNQty: 60 3RF acetaminophen [Mapap Extra Strength] 500 MG tablet 1,000 mg PO TID Qty: 60 2RF esomeprazole magnesium [Nexium] 20 mg Capsule,Delayed Release(Dr/Ec) 20 mg PO DAILY Medical Decision Making 72 yo female with hx of svt, PE no longer on anticoagulation, who states she finished bactrim this past Thursday comes in with intermittent lightheadedness for 3-4 days but has been constant since yesterday. She denies fevers, chills, chest pain, has had some lower abdominal suprapubic pain and still has dysuria. She denies loc, no unilateral weakness or vision changes. Nursing reports during triage she had a telemetry heart rate of 160 but then converted to a sinus rhythm, I did not witness this reported heart rate of 160. She is caox4, does appear generally fatigued but is able to speak in full sentences. She has no focal neuro deficits, clear lungs, no murmurs, soft abodmen with some tenderness without guarding in the right lower and suprapubic area. Given her history will keep on tele to monitor for svt, obtain ekg/troponin, cbc, cmp, and given history of PE and some abdominal tenderness in the lower abdomen obtain CT for PE as well as CT abdomen/pelvis to evaluate for possible appendicitis. labs unremarkable, pt stable, to me on her cta she appears to have left sided PE, pending radiology read. She has had calf pain bilaterally per patient and on exam left leg is mildly more swollen then the right, will obtain u/s of both lower extremities Differential Diagnosis Differential Diagnosis: uti, pyelo, svt, pe Lab Data Lab results reviewed: Yes I reviewed the patient's lab results. ECG Data Attestation: I personally reviewed and interpreted this ECG (s) as follows: Prior ECG tracings: not available for review Interpretation: sinus rhythm, rate of 95, rbbb, no stemi HPI General Mode of arrival: ambulatory. Date/Time Provider Initiated Documentation: 01/22/23 05:49. Limitations to Documentation: no limitations. Information obtained by: patient. History of Present Illness 72 year old F presents to the emergency department with the chief complaint of lightheaded, described as moderate, Patient started experiencing this day(s) (4) and it has been intermittent. No relieving factors improve symptom(s), No exacerbating factors reported . Patient notes denies chest pain and fever/chills. Patient did receive the following treatments prior to arrival, none Related Data Home Medications Medication Instructions Recorded Confirmed metoprolol tartrate 25 mg tablet 12.5 mg PO PRN PRN 08/19/17 01/22/23 aspirin 81 mg tablet,delayed 81 mg PO DAILY 02/04/19 03/12/21 release acetaminophen 500 mg tablet (Mapap 1,000 mg PO TID #60 tabs 05/08/20 01/22/23 Extra Strength) esomeprazole magnesium 20 mg 20 mg PO DAILY 05/08/20 03/12/21 capsule,delayed release (Nexium) ibuprofen 600 mg tablet 600 mg PO TID PRN #60 tabs 05/08/20 03/12/21 Al hyd-Mg tr-alg ac-sod bicarb 80 1 tab PO PRN PRN 11/16/20 01/22/23 mg-14.2 mg chewable tablet (Gaviscon) aluminum-mag hydroxide-simethicone See Rx Instructions .Route .COMPLEX 11/16/20 01/22/23 400 mg-400 mg-40 mg/5 mL oral susp (Mylanta Maximum Strength) ascorbic acid (vitamin C) 500 mg 500 mg PO DAILY 11/16/20 01/22/23 tablet (Vitamin C) calcium carbonate 200 mg-magnesium 1 tab PO DAILY 11/16/20 01/22/23 oxide,carbonate 100 mg chew tablet (Gareth-Mag) estradiol 0.01% (0.1 mg/gram) 1 g vaginal DAILY 11/16/20 01/22/23 vaginal cream (Estrace) hydrocortisone 2.5 % topical cream 1 applic topical BID PRN 11/16/20 01/22/23 vitamin B complex 1 tab PO DAILY 11/16/20 01/22/23 cranberry 400 mg capsule 400 mg PO DAILY 11/26/20 01/22/23 amoxicillin 500 mg tablet 2,000 mg PO ONCE #4 tabs 08/26/21 Previous Rx's Medication Instructions Recorded acetaminophen 500 mg tablet (Mapap 1,000 mg PO TID #60 tabs 05/08/20 Extra Strength) ibuprofen 600 mg tablet 600 mg PO TID PRN #60 tabs 05/08/20 amoxicillin 500 mg tablet 2,000 mg PO ONCE #4 tabs 08/26/21 Allergies Allergy/AdvReac Type Severity Reaction Status Date / Time animal dander Allergy Unknown Unverified 01/22/23 06:02 fexofenadine Allergy Unknown Unverified 01/22/23 06:02 nickel Allergy Unknown Unverified 01/22/23 06:02 perfume Allergy Unknown Unverified 01/22/23 06:02 Antihistamines Allergy Unknown Uncoded 01/22/23 06:02 mold spores Allergy Unknown Uncoded 01/22/23 06:02 General Stated Complaint: Arrhythmia JUSTYN: 2 Review of Systems All systems reviewed & are unremarkable except as noted in HPI and below Constitutional Constitutional: Denies chills and Denies fever(s) ENT Ears, Nose, Mouth, and Throat: Denies change in voice Cardiovascular Cardiovascular: Denies chest pain and Denies dyspnea Respiratory Respiratory: Denies cough and Denies dyspnea Gastrointestinal Gastrointestinal: Denies nausea and Denies vomiting Genitourinary Genitourinary: Reports other (dysuria) Musculoskeletal Musculoskeletal: Denies joint swelling Integumentary/Breasts Skin/Breast: Denies rash Psychiatric Psychiatric: Denies depression PFSH All Active Problems (Updated 01/22/23 @ 07:27 by Velasquez Marie MD) Light-headed (Acute) Lumbar radiculopathy (Acute) Spondylolisthesis, lumbar region (Acute) Pulmonary embolism (Acute) Trochanteric bursitis, left hip (Chronic 07/22/17) Tarsal tunnel syndrome of right side (Acute 01/14/17) Primary osteoarthritis of left hip (Acute 07/22/17) Posterior tibial tendon dysfunction (PTTD) of both lower extremities (Acute 01/14/17) Pes planus of both feet (Acute 01/14/17) History of total left hip replacement (Chronic) DOS: 08/25/17 Dr. Lee Tendinitis of left rotator cuff (Acute) Sensorineural hearing loss of both ears (Chronic) Trigger finger, right ring finger (Acute) s/p surgical release 05/08/2020 Medical History Pulmonary embolism SVT (supraventricular tachycardia) Surgical History H/O total knee replacement bilat S/P total hip arthroplasty Social History (Updated 11/26/20 @ 11:28 by Tiara Adams RN) Smoking/Tobacco Use Status: Former Tobacco Use Smoking risk assessment performed?: Yes Alcohol Intake: current Alcohol Intake frequency: a few times a month Drug use: Never Substance use type: does not use Housing: house current occupation: retired - site admin at [employer] Current gender identity: female What type of physical activity do you participate in: regular exercise Do you feel safe at home: Yes Do you feel safe in your relationship?: Yes Exam Const General: no acute distress Orientation: alert HENMT Head: normal to inspection Ears: external ears normal General nose exam: external nose normal Mouth: moist mucous membranes Eyes General: appearance normal, both eyes and all related structures Neck Neck: normal visual inspection Resp Effort & Inspection: normal respiratory effort and able to speak in complete sentences Auscultation: clear to auscultation bilaterally Cardio Jugular venous pressure: no JVD Rate: regular rate Heart Sounds: no murmurs GI Palpation: soft, not firm, no guarding and tender Skin General skin exam: no rashes or lesions noted Neuro General: patient alert and patient oriented x3 Extrem General: normal to inspection Psych Mental Status: mental status grossly normal Course Vital Signs Vital signs: Vital Signs Pulse 91 H 01/22/23 05:52 Respiratory Rate 20 01/22/23 05:52 Blood Pressure 152/108 H 01/22/23 05:52 Pulse Oximetry 98 01/22/23 05:52 Pulse 91 H 01/22/23 05:52 Respiratory Rate 20 01/22/23 05:52 Respiratory Effort Short of Breath 01/22/23 05:57 Blood Pressure 152/108 H 01/22/23 05:52 Pulse Oximetry 98 01/22/23 05:52 Oxygen Delivery Method Room Air 01/22/23 05:52 Oxygen Flow Rate 0 01/22/23 05:52 Lab/Test Results Lab/Test Results: Laboratory Tests Range/Units 01/22/23 05:01 WBC (4.4-10.8) 10^3/uL 8.83 RBC (3.93-5.22) 10^6/uL 4.45 Hgb (11.2-15.7) g/dL 12.7 Hct (36.0-46.0) % 39.1 MCV (80-95) fL 88 MCH (27.0-33.0) pg 28.5 MCHC (32.0-36.0) % 32.5 RDW (11.7-14.6) % 13.4 Plt Count (130-400) 10^3/uL 372 MPV (8.0-11.0) fL 8.7 Immature Gran % 0.5 Neutrophils % 70.6 Lymphocytes % 20.3 Monocytes % 5.5 Eosinophils % 2.2 Basophils % 0.9 Nucleated RBC % (0.0-0.3) % 0.0 Absolute Neutrophils (1.2-6.7) 10^3/uL 6.24 Absolute Lymphocytes (1.2-3.4) 10^3/uL 1.79 Absolute Monocytes (0.1-0.8) 10^3/uL 0.49 Absolute Eosinophils (0.0-0.7) 10^3/uL 0.19 Absolute Basophils (0.0-0.2) 10^3/uL 0.08
[2023-01-22 06:23] LABS: PTT Activated 25.1 sec (21.5-31.9); Prothrombin Time 9.8 sec (9.3-11.0)
[2023-01-22 06:30] LABS: ALT 19 U/L (14-59); AST 17 U/L (15-37); Albumin 3.3 g/dL (3.4-5.0); Alkaline Phosphatase 104 U/L (46-116); Anion Gap 7.2 mmol/L (3-11); BUN 11 mg/dL (7-18); Bilirubin, Total 0.3 mg/dL (0.2-1.0); CO2 28.8 mmol/L (21.0-32.0); CREATININE 0.9 mg/dL (0.55-1.02); Calcium 9.3 mg/dL (8.5-10.1); Chloride 102 mmol/L (98-107); Estimated GFR 67.92 (mL/min/1.73m2); Glucose 138 mg/dL (74-106); Lipase 64 U/L (16-77); Potassium 4.2 mmol/L (3.5-5.1); Sodium 138 mmol/L (136-145); Total Protein 7.6 g/dL (6.4-8.2); Troponin I < 50 ng/L (<or=60)
--- NOTE | 2023-01-22 06:30 | DI.CT_ITS ---
Exam(s) CT CHEST PE ABD PELVIS W EXAM: CT CHEST PE ABD PELVIS W CLINICAL HISTORY: hx of PE, tachycardia, lower abdominal pain. TECHNIQUE: Imaging Protocol: Axial CT angiography was performed with multi-slice acquisition and mu lti-planar and/or 3D reconstructions. CONTRAST MATERIAL: Intravenous: Omnipaque 350contrast volume:100 mL COMPARISON: CT CT CHEST PE CTA from 01/03/2019 FINDINGS: CHEST: Tracheobronchial tree: Patent where visualized. Pulmonary parenchyma: There are ground-glass opacities in the lungs bilaterally. No focal consolidat ing infiltrates are seen. No architectural distortion. Pulmonary Arteries: There are filling defects to branches of the pulmonary arteries to the right lowe r lobe, left lower lobe and left lingula. There is thrombus seen in the distal left main pulmonary a rtery. Mediastinum and Karoline: No dominant adenopathy or fluid collection. The esophagus is unremarkable. Visualized thyroid gland: Unremarkable. Pleura: No effusion or pneumothorax. Heart: Mild cardiomegaly. No coronary artery calcifications are seen. No pericardial effusion. The R V to LV ratio is less than 1. Aorta: Thoracic aorta non-dilated. No evidence of dissection. Mild atherosclerosis. Bones: Within normal limits for the patient's age. Soft tissues: Unremarkable. ABDOMEN: Liver: Normal density. No measurable mass. Portal, Superior Mesenteric, and Splenic Veins: Unremarkable. Gallbladder and Biliary Tract: No radiodense calculus or dilation. Pancreas: Normal density, no abnormal calcifications or inflammatory process. Spleen: Normal. Adrenals: No masses seen. Kidneys: Normal size, contour and axis. No radiodense stones or obstructive uropathy. No masses seen. Abdominal Aorta: Abdominal portion non-dilated. Atherosclerosis. Bowel: There is diverticulosis of the colon, but no evidence of acute diverticulitis. Appendix is un remarkable. No evidence of bowel obstruction or bowel wall thickening. Peritoneal Cavity: No ascites, collection or mesenteric inflammatory response. No free air. Lymph Nodes: Within normal limits. Bones: There is a left total hip replacement. There is sclerosis at the sacroiliac joints bilaterall y suggesting sacroiliitis. Soft Tissues: Unremarkable. PELVIS: Bladder: There is artifact from the left hip prosthesis but no gross abnormality is seen of the urina ry bladder. Reproductive Organs: Unremarkable as visualized. Lymph Nodes: Within normal limits. Bones: Within normal limits. IMPRESSION: 1. Bilateral pulmonary emboli. No evidence of right heart strain. 2. Nonspecific bilateral ground-glass opacities is may reflect poor inspiration or pulmonary edema. 3. No acute abdominal or pelvic process. RADIATION DOSE DELIVERED: 1,324.18mGy.cm Total DLP DATA REPOSITORY: All CT scans at this facility are submitted to the National Radiology Data Registry (NRDR) Dose Index Registry (DIR) with the [employer] (A[employer]). RADIATION OPTIMIZATION: All CT scans at this facility use at least one of these dose optimization te chniques: automated exposure control; mA and/or kV adjustment per patient size (includes targeted exa ms where dose is matched to clinical indication); or iterative reconstruction.
[2023-01-22] MEDS: Omnipaque 350 MG/ML 100 ML BTL IJ (06:54)
[2023-01-22] MEDS: Normal Saline - Diluent 50 ML VIAL IJ (06:54)
[2023-01-22 06:55] LABS: Bilirubin Negative (Negative); Blood Negative (Negative); Clarity Clear (Clear); Glucose Negative (Negative); Ketones Negative (Negative); Leukocyte Esterase Negative (Negative); Nitrite Negative (Negative); Specific Gravity 1.015 (1.005-1.025); Urobilinogen 0.2 mg/dL (Up to 0.2)
--- NOTE | 2023-01-22 07:15 | DI.US_ITS ---
Exam(s) US EXTREMITY VENOUS BI EXAM: US EXTREMITY VENOUS BI CLINICAL HISTORY: leg swelling and pain, previous PE. TECHNIQUE: Bilateral lower extremity venous ultrasound performed using grayscale, color-flow, and sp ectral Doppler analysis. COMPARISON: No exams were available for comparison FINDINGS: The right common femoral, femoral and popliteal veins demonstrate normal compressibility, augmentatio n, and color Doppler. The posterior tibial veins are patent. The saphenofemoral junction is unremarka ble. There is no evidence of a Spaulding's cyst. The soft tissues are unremarkable. There is occlusive thrombus extending from the femoral vein through the popliteal vein into the poste rior tibialis veins. There is nonocclusive thrombus seen proximally in the left common femoral vein below the level of the saphenofemoral junction. The saphenofemoral junction is unremarkable. There is no evidence of a Spaulding's cyst. The soft tissues are unremarkable. IMPRESSION: 1. No evidence of a right lower extremity DVT. 2. Left lower extremity thrombus extending from the left common femoral vein, through the femoral vei n and popliteal vein, and into the posterior tibialis veins. 3. Findings were discussed with the emergency department on the date of the examination. DATA REPOSITORY:
--- NOTE | 2023-01-22 08:15 | DI.VRAD_ITS ---
PROCEDURE INFORMATION: Exam: CTA Chest With Contrast Exam date and time: 01/22/2023 6:53 AM Age: 72 years old Clinical indication: Other: Lower abdominal pain; Other: HX of pe, tachycardia, TECHNIQUE: Imaging protocol: Computed tomographic angiography of the chest with contrast. 3D rendering (Not supervised by radiologist): MIP and/or 3D reconstructed images were created by the technologist. Radiation optimization: All CT scans at this facility use at least one of these dose optimization techniques: automated exposure control; mA and/or kV adjustment per patient size (includes targeted exams where dose is matched to clinical indication); or iterative reconstruction. Contrast material: OMNIPAQUE; Contrast volume: 100 ml; Contrast route: INTRAVENOUS (IV); COMPARISON: CT CHEST PE CTA 01/03/2019 3:14 PM FINDINGS: Limitations: Motion artifact degrades image quality. Pulmonary arteries: There are bilateral pulmonary emboli. Emboli are seen in the left lower lobe artery extending into multiple segmental branches, and in segmental and subsegmental branches in the right lower lobe. Aorta: See Other arteries finding. Other arteries: Arterial calcifications. No thoracic aortic aneurysm seen. Thyroid: Subcentimeter hypodensities in the thyroid. Lungs: Nonspecific ground-glass opacities in both lungs. Pleural spaces: No pleural effusion. Heart: Borderline cardiomegaly. No evidence for right heart strain. Lymph nodes: No acute abnormality seen. Diaphragm: Fat containing right Bochdalek hernia. Bones/joints: No acute pertinent abnormality seen. Soft tissues: No acute pertinent abnormality seen. IMPRESSION: 1. Bilateral pulmonary emboli as above. 2. Nonspecific ground-glass opacities, may reflect underinflation or edema. 3. Additional studies dictated separately. 4. THIS REPORT CONTAINS FINDINGS THAT MAY BE CRITICAL TO PATIENT CARE. The findings were verbally communicated via telephone conference with Dr. Soares at 8:14 AM EDT on 01/22/2023. The findings were acknowledged and understood. PROCEDURE INFORMATION: Exam: CT Abdomen And Pelvis With Contrast Exam date and time: 01/22/2023 6:53 AM Age: 72 years old Clinical indication: Other: Lower abdominal pain; Other: HX of pe, tachycardia, TECHNIQUE: Imaging protocol: Computed tomography of the abdomen and pelvis with contrast. Radiation optimization: All CT scans at this facility use at least one of these dose optimization techniques: automated exposure control; mA and/or kV adjustment per patient size (includes targeted exams where dose is matched to clinical indication); or iterative reconstruction. Contrast material: OMNIPAQUE; Contrast route: INTRAVENOUS (IV); COMPARISON: CT CHEST FOR PE, ABD PELVIS W 12/15/2017 2:52 AM FINDINGS: Lungs: Pulmonary emboli. CT scan of the chest dictated separately. Diaphragm: Fat containing right Bochdalek hernia. Liver: No focal hepatic lesion identified. Gallbladder and bile ducts: No radiodense gallbladder calculi seen. Pancreas: No CT evidence for acute pancreatitis. Spleen: No splenomegaly. Adrenal glands: No mass. Kidneys and ureters: No hydronephrosis or evidence for pyelonephritis. Stomach and bowel: No intestinal obstruction is evident. Colonic diverticula are identified but there is no CT evidence for diverticulitis. Retained fecal material throughout the colon. Correlate clinically for history of constipation. Areas of apparent mural thickening in the colon commensurate with underdistention. Appendix: No evidence of appendicitis. Intraperitoneal space: No free air. Vasculature: Arterial calcifications. Prominent pelvic vessels. Correlate clinically for pelvic congestion syndrome. Lymph nodes: No acute findings. Urinary bladder: No acute findings. Reproductive: No acute findings. Bones/joints: Left hip prosthesis. Artifact limits evaluation of the surrounding tissues. Degenerative changes in the spine. Soft tissues: No pertinent acute abnormality seen. IMPRESSION: 1. No acute findings to explain reported symptoms. 2. Nonacute findings as outlined above. Dictated and Authenticated by: Marah Plasencia MD. Ordering:FELIPA Eng MD
--- NOTE | 2023-01-22 08:19 | ED.PROG_ITS ---
Date of service: 01/22/23 Time of Service: 08:00 Medical Decision Making 0800 --please see Dr. Marie's note for initial presentation, exam and plan. Case endorsed to follow-up on labs and imaging. He reviewed CTs and it appears consistent that she has a PE. Reported that pt would prefer to go home and she has a low risk PESI score so she may be appropriate for outpatient management with Eliquis. Will continue to monitor and attempt to ambulate and if she remains hemodynamically stable and agreeable, likely plan for discharge to home on Eliquis. 0813 --Case discussed with Satya who notes multiple bilateral PEs with no evidence of heart strain or any acute abdominal abnormalities. 0845 --bilateral ultrasounds of the lower extremities revealed no DVT in the right leg but is positive for DVT the entire left lower extremity extending from the left common femoral through the femoral and popliteal vein and into the posterior tibialis veins. Patient assessed at bedside. Patient reports that she had previously been on Eliquis in 2016 for 6 months for pulmonary embolism. She had been on Xarelto at that time but was not well tolerated due to GI side effects. She then reports she was on Eliquis for 30 days in August 2021 after her right foot surgery and then again in September 2022 for 30 days after her left foot surgery. She reports she has been more sedentary since her left foot surgery in September at [facility]. She states she started PT a few weeks ago but other than that is usually s itting. She states she has had ongoing pain and swelling in her left leg since her foot surgery in September and does not think this has been any worse than usual. She does endorse that for the past 4 days she has had dizziness which she describes as lightheadedness which was much worse last night and this morning and mainly with standing. She states she occasionally has shortness of breath with exertion over the past few days but denies any at present. Her vital signs are reassuring and that her heart rate is within normal limits and her blood pressure is more moderately hypertensive and her oxygen saturation is 100% on room air. She is low risk per PESI score, however will attempt to ambulate and if she is dizzy or symptomatic, will admit for observation. 0940 --patient ambulated and reported dizziness and heart rate increased to 140s while walking. Heart rate then normalized while resting. Will admit for observation. Case discussed with Dr. Cunningham who accepts patient for admission. We will still proceed with Blank. Medical Records Medical records reviewed: Yes I reviewed the patient's medical records. Imaging Data Radiologic Study: Radiologist's impression: CTA Chest With Contrast Exam date and time: 01/22/2023 6:53 AM Age: 72 years old Clinical indication: Other: Lower abdominal pain; Other: HX of pe, tachycardia, TECHNIQUE: Imaging protocol: Computed tomographic angiography of the chest with contrast. 3D rendering (Not supervised by radiologist): MIP and/or 3D reconstructed images were created by the technologist. Radiation optimization: All CT scans at this facility use at least one of these dose optimization techniques: automated exposure control; mA and/or kV adjustment per patient size (includes targeted exams where dose is matched to clinical indication); or iterative reconstruction. Contrast material: OMNIPAQUE; Contrast volume: 100 ml; Contrast route: INTRAVENOUS (IV);? COMPARISON: CT CHEST PE CTA 01/03/2019 3:14 PM FINDINGS: Limitations: Motion artifact degrades image quality. Pulmonary arteries: There are bilateral pulmonary emboli. Emboli are seen in the left lower lobe artery extending into multiple segmental branches, and in segmental and subsegmental branches in the right lower lobe. Aorta: See Other arteries finding. Other arteries: Arterial calcifications. No thoracic aortic aneurysm seen. Thyroid: Subcentimeter hypodensities in the thyroid. Lungs: Nonspecific ground-glass opacities in both lungs. Pleural spaces: No pleural effusion. Heart: Borderline cardiomegaly. No evidence for right heart strain. Lymph nodes: No acute abnormality seen. Diaphragm: Fat containing right Bochdalek hernia. Bones/joints: No acute pertinent abnormality seen. Soft tissues: No acute pertinent abnormality seen. IMPRESSION: 1. ? Bilateral pulmonary emboli as above. 2. ? Nonspecific ground-glass opacities, may reflect underinflation or edema. 3. ? Additional studies dictated separately. 4. ? THIS REPORT CONTAINS FINDINGS THAT MAY BE CRITICAL TO PATIENT CARE. The findings were verbally communicated via telephone conference with Dr. Soares at 8:14 AM EDT on 01/22/2023. The findings were acknowledged and understood. CT Abdomen And Pelvis With Contrast Exam date and time: 01/22/2023 6:53 AM Age: 72 years old Clinical indication: Other: Lower abdominal pain; Other: HX of pe, tachycardia, TECHNIQUE: Imaging protocol: Computed tomography of the abdomen and pelvis with contrast. Radiation optimization: All CT scans at this facility use at least one of these dose optimization techniques: automated exposure control; mA and/or kV adjustment per patient size (includes targeted exams where dose is matched to clinical indication); or iterative reconstruction. Contrast material: OMNIPAQUE; Contrast route: INTRAVENOUS (IV);? COMPARISON: CT CHEST FOR PE, ABD PELVIS W 12/15/2017 2:52 AM FINDINGS: Lungs:? Pulmonary emboli.? CT scan of the chest dictated separately. Diaphragm: Fat containing right Bochdalek hernia. Liver:? No focal hepatic lesion identified.? Gallbladder and bile ducts:? No radiodense gallbladder calculi seen.? Pancreas:? No CT evidence for acute pancreatitis.? Spleen: No splenomegaly. Adrenal glands: No mass. Kidneys and ureters:? No hydronephrosis or evidence for pyelonephritis.? Stomach and bowel: No intestinal obstruction is evident. Colonic diverticula are identified but there is no CT evidence for diverticulitis. Retained fecal material throughout the colon. Correlate clinically for history of constipation. Areas of apparent mural thickening in the colon commensurate with underdistention. Appendix: No evidence of appendicitis. Intraperitoneal space: No free air. Vasculature: Arterial calcifications. Prominent pelvic vessels. Correlate clinically for pelvic congestion syndrome. Lymph nodes: No acute findings. Urinary bladder: No acute findings. Reproductive: No acute findings. Bones/joints: Left hip prosthesis. Artifact limits evaluation of the surrounding tissues. Degenerative changes in the spine. Soft tissues: No pertinent acute abnormality seen. IMPRESSION: 1. ? No acute findings to explain reported symptoms. 2. ? Nonacute findings as outlined above. US EXTREMITY VENOUS BI CLINICAL HISTORY: ? leg swelling and pain, previous PE.? TECHNIQUE:? Bilateral lower extremity venous ultrasound performed using grayscale, color-flow, and spectral Doppler analysis. COMPARISON:? No exams were available for comparison FINDINGS: The right common femoral, femoral and popliteal veins demonstrate normal compressibility, augmentation, and color Doppler. The posterior tibial veins are patent. The saphenofemoral junction is unremarkable.? There is no evidence of a Spaulding's cyst. The soft tissues are unremarkable. There is occlusive thrombus extending from the femoral vein through the popliteal vein into the posterior tibialis veins.? There is nonocclusive thrombus seen proximally in the left common femoral vein below the level of the saphenofemoral junction.? The saphenofemoral junction is unremarkable.? There is no evidence of a Spaulding's cyst. The soft tissues are unremarkable. IMPRESSION: 1. No evidence of a right lower extremity DVT. 2. Left lower extremity thrombus extending from the left common femoral vein, through the femoral vein and popliteal vein, and into the posterior tibialis veins. 3. Findings were discussed with the emergency department on the date of the examination. Lab Data Lab results reviewed: Yes I reviewed the patient's lab results. ECG Data Attestation: I personally reviewed and interpreted this ECG (s) as follows: Interpretation: rate of 78, sinus, RBBB, no change from previous, no acute ischemic findings. Sign Out Sign Out Data: Sign Out Comment: hx of Pe in 2016, off anticoagulation, had foot surgery in September, here for lightheadedness for 4 days. Pending radiology read of CT, left left leg is mildly swollen, u/s pending as well. labs reassuring, should have delta troponin Last updated by Velasquez Marie MD at 01/22/23 07:28 Discharge Plan Disposition Patient Disposition: Admit to [facility] Discharge Details Clinical Impression: Bilateral pulmonary embolism, Acute deep vein thrombosis (DVT) of left lower extremity, Dizziness Primary Care Provider: Tamara Gomez ED Provider: Celine Soares [place] Meds and New Rx's Prescriptions: No Action aspirin 81 mg tablet,delayed release (DR/EC) 81 mg PO DAILY ascorbic acid (vitamin C) [Vitamin C] 500 mg Tablet 500 mg PO DAILY vitamin B complex Tablet 1 tab PO DAILY hydrocortisone 2.5 % Cream 1 applic TOPICAL BID PRN estradiol [Estrace] 0.01 % (0.1 mg/gram) Cream 1 g VAGINAL DAILY alum-mag hydroxide-simeth [Mylanta Maximum Strength] 400-400-40 mg/5 mL Suspension See Rx Instructions .ROUTE .COMPLEX Rx Instructions: PRN As directed Gaviscon 80-14.2 mg Tablet,Chewable 1 tab PO PRN PRN Gareth-Mag 200 mg calcium- 100 mg Tablet,Chewable 1 tab PO DAILY cranberry 400 mg capsule 400 mg PO DAILY Rx Instructions: administer with a meal amoxicillin 500 mg tablet 2,000 mg PO ONCE Qty: 4 0RF Rx Instructions: TAKE 4 TABS WITHIN ONE HOUR OF DENTAL PROCEDURE metoprolol tartrate 12.5 MG tablet 12.5 mg PO PRN PRN Rx Instructions: 01/03/19 pt uses for SVT prn ibuprofen 600 mg tablet 600 mg PO TID PRNQty: 60 3RF acetaminophen [Mapap Extra Strength] 500 MG tablet 1,000 mg PO TID Qty: 60 2RF esomeprazole magnesium [Nexium] 20 mg Capsule,Delayed Release(Dr/Ec) 20 mg PO DAILY
--- NOTE | 2023-01-22 08:30 | RT.EKG_ITS ---
APPROVED REPORT Exam: Resting ECG Reason for Exam: tachycardia Patient Location: E HR:78 bpm ECG Measurements Heart Rate [address] 184 P 44 QRSd 137 QRS -3 QT 402 T -10 QTc 458 Conclusion Sinus rhythm...normal P axis, V-rate 60- 99 Right bundle branch block...QRSd>120, terminal axis(90,270). Sinus. RBBB. No STEMI. I have reviewed and interpreted ECG and agree with software generated interpretation.
[2023-01-22 09:12] LABS: Troponin I < 50 ng/L (<or=60)
[2023-01-22 09:32] LABS: COVID-19 PCR Negative (Negative); Influenza A PCR Negative (Negative); Influenza B PCR Negative (Negative); RSV PCR Negative (Negative)
[2023-01-22 09:38] LABS: Source Nasopharynx
--- NOTE | 2023-01-22 09:42 | NUR.NOTE ---
Nursing Note: Pt ambulated around unit (~200 ft) per physician request. Pt ambulated w/ personal cane. Pt c/o a little dizzy and endorsing generalized malaise. Denies CP or SOB. Heart rate while ambulating 140 and SpO2 94%. Upon return to bed pt HR return to 80's and BP checked while sitting at side of bed 159/92.
[2023-01-22] MEDS: Apixaban 5 MG TAB 10 MG PO ×2 (09:54→19:29)
[2023-01-22] MEDS: Normal Saline 250 ML IV (10:59)
--- NOTE | 2023-01-22 12:13 | W.PM.HP.N ---
Date of service: 01/22/23 Time of Service: 12:13 Assessment and Plan Assessment and plan (1) Bilateral pulmonary embolism: Status: Acute Assessment and plan: PE likely by Wells criteria; confirmed by CTA No absolute contraindications to anticoagulant therapy, no recent surgery, no hemorrhagic stroke, no active bleeding - risk of bleeding is low - Start Apixaban PESI score Class 1 - low risk although increased s/t DVT coexisting Monitor SPO2 - no current oxygen requirement Early ambulation (2) Acute deep vein thrombosis (DVT) of left lower extremity: Status: Acute Assessment and plan: Apixaban (3) Dizziness: Status: Acute Assessment and plan: Orthostatics negative No shortness of breath Push fluids Monitor I/O (4) SVT (supraventricular tachycardia): Assessment and plan: Suspected not documented, tele to monitor rhythm (5) Contraindication to deep vein thrombosis (DVT) prophylaxis: Status: Acute Assessment and plan: Started on Apixaban for PE (6) Discharge planning issues: Status: Acute Assessment and plan: Home on Apixaban for a minimum of 3 months when stable Discussed with Dr Cunningham History of Present Illness History of Present Illness Chief Complaint: Intermittant light-headedness x 4 days Narrative: This is a 72 yo female patient with pmhx of SVT, PE no longer on anticoagulation, who stated she finished bactrim this past Thursday for UTI, presented to the [facility] ED with complaint of intermittent lightheadedness for 3-4 days but had been constant since yesterday. She denied fevers, chills, chest pain, has had some lower abdominal suprapubic pain and still has dysuria. She denied loc, no unilateral weakness or vision changes. Nursing reported during triage she had a telemetry heart rate of 160. I did not witness this reported heart rate of 160. She is CAOx4. She had no focal neuro deficits, clear lungs, no murmurs, soft abodmen with some tenderness without guarding in the right lower and suprapubic area. Patient reported that she had previously been on Eliquis in 2017 for 6 months for pulmonary embolism.? She had been on Xarelto at that time but was not well tolerated due to GI side effects.? She then reported she was on Eliquis for 30 days in August 2021 after her right foot surgery and then again in September 2022 for 30 days after her left foot surgery.? She reported she has been more sedentary since her left foot surgery at [facility] this past September.? She states she started PT a few weeks ago but other than that is usually sitting.? She stated she had ongoing pain and swelling in her left leg since her foot surgery in September and does not think this has been any worse than usual.? She does endorse that for the past 4 days she has had dizziness which she describes as lightheadedness which was much worse last night and this morning and mainly with standing.? She stated she occasionally has shortness of breath with exertion over the past few days but denied any current shortness of breasth and was speaking in full sentences.? Her vital signs are reassuring and that her heart rate is within normal limits and her blood pressure is more moderately hypertensive and her oxygen saturation is 100% on room air.? She is low risk per PESI score. She ambulated in the ED and her HR increased to 140s with some light-headedness. She is being placed on observation on the medical floor, will give IVF and start Apixaban, first dose was given in the ED. Review of Systems All systems reviewed & are unremarkable except as noted in HPI and below PFSH All Active Problems (Updated 01/22/23 @ 12:25 by Priyanka Bonds NP) Discharge planning issues (Acute) Contraindication to deep vein thrombosis (DVT) prophylaxis (Acute) Bilateral pulmonary embolism (Acute) Acute deep vein thrombosis (DVT) of left lower extremity (Acute) Dizziness (Acute) Lumbar radiculopathy (Acute) Spondylolisthesis, lumbar region (Acute) Pulmonary embolism (Acute) Trochanteric bursitis, left hip (Chronic 07/22/17) Tarsal tunnel syndrome of right side (Acute 01/14/17) Primary osteoarthritis of left hip (Acute 07/22/17) Posterior tibial tendon dysfunction (PTTD) of both lower extremities (Acute 01/14/17) Pes planus of both feet (Acute 01/14/17) History of total left hip replacement (Chronic) DOS: 08/25/17 Dr. Lee Tendinitis of left rotator cuff (Acute) Sensorineural hearing loss of both ears (Chronic) Trigger finger, right ring finger (Acute) s/p surgical release 05/08/2020 Medical History Pulmonary embolism SVT (supraventricular tachycardia) Surgical History H/O total knee replacement bilat S/P total hip arthroplasty Social History (Updated 11/26/20 @ 11:28 by Tiara Adams RN) Smoking/Tobacco Use Status: Former Tobacco Use Smoking risk assessment performed?: Yes Alcohol Intake: current Alcohol Intake frequency: a few times a month Drug use: Never Substance use type: does not use Housing: house current occupation: retired - site admin at [employer] Current gender identity: female What type of physical activity do you participate in: regular exercise Do you feel safe at home: Yes Do you feel safe in your relationship?: Yes Meds Allergies and Home Medications Allergies Allergy/AdvReac Type Severity Reaction Status Date / Time animal dander Allergy Unknown Unverified 01/22/23 06:02 fexofenadine Allergy Unknown Unverified 01/22/23 06:02 nickel Allergy Unknown Unverified 01/22/23 06:02 perfume Allergy Unknown Unverified 01/22/23 06:02 Antihistamines Allergy Unknown Uncoded 01/22/23 06:02 mold spores Allergy Unknown Uncoded 01/22/23 06:02 Home Medications Medication Instructions Recorded Confirmed Type metoprolol tartrate 25 mg tablet 12.5 mg PO PRN PRN 08/19/17 01/22/23 History aspirin 81 mg tablet,delayed 81 mg PO DAILY 02/04/19 03/12/21 History release acetaminophen 500 mg tablet (Mapap 1,000 mg PO TID #60 tabs 05/08/20 01/22/23 Rx Extra Strength) esomeprazole magnesium 20 mg 20 mg PO DAILY 05/08/20 03/12/21 History capsule,delayed release (Nexium) ibuprofen 600 mg tablet 600 mg PO TID PRN #60 tabs 05/08/20 03/12/21 Rx Al hyd-Mg tr-alg ac-sod bicarb 80 1 tab PO PRN PRN 11/16/20 01/22/23 History mg-14.2 mg chewable tablet (Gaviscon) aluminum-mag hydroxide-simethicone See Rx Instructions .Route .COMPLEX 11/16/20 01/22/23 History 400 mg-400 mg-40 mg/5 mL oral susp (Mylanta Maximum Strength) ascorbic acid (vitamin C) 500 mg 500 mg PO DAILY 11/16/20 01/22/23 History tablet (Vitamin C) calcium carbonate 200 mg-magnesium 1 tab PO DAILY 11/16/20 01/22/23 History oxide,carbonate 100 mg chew tablet (Gareth-Mag) estradiol 0.01% (0.1 mg/gram) 1 g vaginal DAILY 11/16/20 01/22/23 History vaginal cream (Estrace) hydrocortisone 2.5 % topical cream 1 applic topical BID PRN 11/16/20 01/22/23 History vitamin B complex 1 tab PO DAILY 11/16/20 01/22/23 History cranberry 400 mg capsule 400 mg PO DAILY 11/26/20 01/22/23 History amoxicillin 500 mg tablet 2,000 mg PO ONCE #4 tabs 08/26/21 Rx Exam Const General: no acute distress Orientation: alert [facility] Head: normal to inspection Ears: external ears normal General nose exam: external nose normal Mouth: moist mucous membranes Eyes General: appearance normal, both eyes and all related structures Neck Neck: normal visual inspection Resp Effort & Inspection: normal respiratory effort and able to speak in complete sentences Auscultation: clear to auscultation bilaterally Cardio Jugular venous pressure: no JVD Rate: regular rate Heart Sounds: no murmurs GI Palpation: soft, not firm, no guarding and tender Skin General skin exam: no rashes or lesions noted Neuro General: patient alert and patient oriented x3 Extrem General: normal to inspection Psych Mental Status: mental status grossly normal Results Labs 01/22/23 05:01 01/22/23 05:01 Labs: Laboratory Results - last 24 hr 01/22/23 01/22/23 01/22/23 05:01 05:01 05:01 WBC 8.83 RBC 4.45 Hgb 12.7 Hct 39.1 MCV 88 MCH 28.5 MCHC 32.5 RDW 13.4 Plt Count 372 MPV 8.7 Immature Gran % 0.5 Neutrophils % 70.6 Lymphocytes % 20.3 Monocytes % 5.5 Eosinophils % 2.2 Basophils % 0.9 Nucleated RBC % 0.0 Absolute Neutrophils 6.24 Absolute Lymphocytes 1.79 Absolute Monocytes 0.49 Absolute Eosinophils 0.19 Absolute Basophils 0.08 PT 9.8 INR 1.0 APTT 25.1 Sodium 138 Potassium 4.2 Chloride 102 Carbon Dioxide 28.8 Anion Gap 7.2 BUN 11 Creatinine 0.9 Est GFR (CKD-EPI 2020) 67.92 Glucose 138 H Calcium 9.3 Magnesium 2.0 Total Bilirubin 0.3 AST 17 ALT 19 Alkaline Phosphatase 104 Troponin I < 50 Total Protein 7.6 Albumin 3.3 L Lipase 64 Urine Color Urine Clarity Urine pH Ur Specific [place] Urine Protein Urine Ketones Urine Blood Urine Nitrite Urine Bilirubin Urine Urobilinogen Ur Leukocyte Esterase Urine Glucose COVID-19 Source SARS-CoV-2 (PCR) Influenza Type A (PCR) Influenza Type B (PCR) RSV (PCR) 01/22/23 01/22/23 01/22/23 06:40 08:45 08:45 WBC RBC Hgb Hct MCV MCH MCHC RDW Plt Count MPV Immature Gran % Neutrophils % Lymphocytes % Monocytes % Eosinophils % Basophils % Nucleated RBC % Absolute Neutrophils Absolute Lymphocytes Absolute Monocytes Absolute Eosinophils Absolute Basophils PT INR APTT Sodium Potassium Chloride Carbon Dioxide Anion Gap BUN Creatinine Est GFR (CKD-EPI 2020) Glucose Calcium Magnesium Total Bilirubin AST ALT Alkaline Phosphatase Troponin I < 50 Total Protein Albumin Lipase Urine Color Yellow Urine Clarity Clear Urine pH 7.0 Ur Specific [place] 1.015 Urine Protein Negative Urine Ketones Negative Urine Blood Negative Urine Nitrite Negative Urine Bilirubin Negative Urine Urobilinogen 0.2 Ur Leukocyte Esterase Negative Urine Glucose Negative COVID-19 Source Nasopharynx SARS-CoV-2 (PCR) Negative Influenza Type A (PCR) Negative Influenza Type B (PCR) Negative RSV (PCR) Negative Last Vital Signs Temp 36.3 C L 01/22/23 11:23 Pulse 63 01/22/23 11:23 Resp 16 01/22/23 11:23 BP 108/72 01/22/23 11:23 Pulse Ox 97 01/22/23 11:23 Time Spent Time spent with Patient: 40-54 minutes Time was spent: preparing to see the patient(eg.review tests), ordering medications,tests, procedures, referring, communicating with other health customer care associate, indepentently interpreting results, counseling the patient and care coordination
[2023-01-22] MEDS: Acetaminophen 325 MG TAB PO (18:06)
[2023-01-22] MEDS: Normal Saline Flush 10 ML SYR IVP (18:07)
[2023-01-22] MEDS: Ketorolac 30 MG/ML VIAL IVP (19:24)
[2023-01-22] MEDS: Lidocaine 5% Patch 1 PATCH TP (19:28)
[2023-01-22] MEDS: Zolpidem 5 MG TAB PO (21:48)
[2023-01-23 03:35] VITALS: BP 130/89; PULSE 63; RESP 18; TEMP 36.5; O2SAT 97
[2023-01-23 06:00] VITALS: PULSE 75
[2023-01-23 06:42] LABS: Abs Immature Grans 0.03 10^3/uL (0.0-0.06); Absolute Basophil Count 0.05 10^3/uL (0.0-0.2); Absolute Eosinophil Count 0.13 10^3/uL (0.0-0.7); Absolute Lymphocyte Count 1.77 10^3/uL (1.2-3.4); Absolute Monocyte Count 0.37 10^3/uL (0.1-0.8); Absolute Neutrophil Count 4.18 10^3/uL (1.2-6.7); Basophils % 0.8; HGB 11.7 g/dL (11.2-15.7); Immature Grans % 0.5; Lymphocytes % 27.1; MCH 28.6 pg (27.0-33.0); MCHC 32.5 % (32.0-36.0); MCV 88 fL (80-95); MPV 8.9 fL (8.0-11.0); Monocytes % 5.7; Neutrophils % 63.9; Platelet Count 362 10^3/uL (130-400); RBC 4.09 10^6/uL (3.93-5.22); RDW 13.4 % (11.7-14.6); RDW-SD 43.8 fL; WBC 6.53 10^3/uL (4.4-10.8)
[2023-01-23 07:01] LABS: ALT 17 U/L (14-59); AST 14 U/L (15-37); Albumin 2.9 g/dL (3.4-5.0); Alkaline Phosphatase 96 U/L (46-116); Anion Gap 6.8 mmol/L (3-11); BUN 12 mg/dL (7-18); Bilirubin, Total 0.3 mg/dL (0.2-1.0); CO2 28.2 mmol/L (21.0-32.0); CREATININE 0.9 mg/dL (0.55-1.02); Chloride 104 mmol/L (98-107); Estimated GFR 67.92 (mL/min/1.73m2); Glucose 101 mg/dL (74-106); Magnesium 2.1 mg/dL (1.8-2.4); Potassium 4.1 mmol/L (3.5-5.1); Sodium 139 mmol/L (136-145); Total Protein 6.7 g/dL (6.4-8.2)
[2023-01-23] MEDS: Apixaban 5 MG TAB 10 MG PO (07:35)
[2023-01-23] MEDS: Esomeprazole 20 MG CAPCR PO (07:35)
[2023-01-23 07:56] VITALS: PULSE 78
[2023-01-23 08:00] VITALS: BP 150/93; PULSE 67; RESP 16; TEMP 36.2; O2SAT 95
--- NOTE | 2023-01-23 09:56 | DSE_ITS ---
Date of service: 01/23/23 Time of Service: 09:56 DS: Diagnosis Discharge Diagnosis (1) Bilateral pulmonary embolism: Status: Acute (2) Acute deep vein thrombosis (DVT) of left lower extremity: Status: Acute (3) Dizziness: Status: Acute (4) SVT (supraventricular tachycardia): (5) Contraindication to deep vein thrombosis (DVT) prophylaxis: Status: Acute (6) Discharge planning issues: Status: Acute Discharge Plan Disposition Patient Disposition: Home Condition: Improving Discharge Details Reason For Visit: Pulmonary Embolism; DVT left lower extremity Admit Date/Time: 01/22/23 09:56 Admit Provider: Marcos Cunningham Attending Provider: Marcos Cunningham Primary Care Provider: Tamara Gomez [facility] Hospital Course Hospital Course: This is a 72 yo female patient with pmhx of SVT, PE no longer on anticoagulation, who stated she finished Bactrim this past Thursday for UTI, who presented to the [facility] ED with complaint of intermittent lightheadedness for 3-4 days but had been constant for the past 24 h prior to coming to the ED. She denied fevers, chills, chest pain, had some lower abdominal suprapubic pain and still had dysuria. She denied loc, no unilateral weakness or vision changes. Nursing reported during triage she had a telemetry heart rate of 160. She was CAOx4. She had no focal neuro deficits, clear lungs, no murmurs, soft abdomen w ith some tenderness without guarding in the right lower and suprapubic area. Patient reported that she had previously been on Eliquis in 2017 for 6 months for pulmonary embolism. She then reported she was on Eliquis for 30 days in August 2021 after her right foot surgery and then again in September 2022 for 30 days after her left foot surgery.? She reported she has been more sedentary since her left foot surgery she had at [facility] this past September.? She states she started PT a few weeks ago but other than that is usually sitting.? She stated she had ongoing pain and swelling in her left leg since her foot surgery in September and does not think this has been any worse than usual.? She does endorse that for the past 4 days she had dizziness which she described as lightheadedness which was much worse the night prior to admission and the morning of admission, mainly with standing.? She stated she occasionally has shortness of breath with exertion over the past few days but denied any current shortness of breath and was speaking in full sentences.? Her vital signs were reassuring and that her heart rate was within normal limits and her blood pressure was more moderately hypertensive and her oxygen saturation was 100% on room air.? She is low risk per PESI score. She ambulated in the ED and her HR increased to 140s with some light-headedness.? She was placed on observation on the medical floor, given IVF and started on Apixaban, first dose was given in the ED.? She did complaint of some posterior lateral neck pain, no trauma, that was relieved via transdermal lidocaine patch and IV Ketorolac. She did well overnight, no chest pain, no difficulty breathing.? She was discharged to home with Apixaban 10 mg BID x 7d then 5 mg BID.? She was told to continue aspirin 81 mg daily, and stop Ibuprofen.? Her vital signs remained stable and afebrile throughout her hospital stay. Discussed with Dr Cunningham. ? Home Meds and New Rx's Prescriptions: New Eliquis 5 mg Tablet 10 mg PO BID 7 Days Qty: 90 0RF Rx Instructions: 10 mg twice a day for 7 days, then 5 mg twice a day Continued aspirin 81 mg tablet,delayed release (DR/EC) 81 mg PO DAILY ascorbic acid (vitamin C) [Vitamin C] 500 mg Tablet 500 mg PO DAILY vitamin B complex Tablet 1 tab PO DAILY hydrocortisone 2.5 % Cream 1 applic TOPICAL BID PRN estradiol [Estrace] 0.01 % (0.1 mg/gram) Cream 1 g VAGINAL DAILY alum-mag hydroxide-simeth [Mylanta Maximum Strength] 400-400-40 mg/5 mL Suspension See Rx Instructions .ROUTE .COMPLEX Rx Instructions: PRN As directed Gaviscon 80-14.2 mg Tablet,Chewable 1 tab PO PRN PRN Gareth-Mag 200 mg calcium- 100 mg Tablet,Chewable 1 tab PO DAILY cranberry 400 mg capsule 400 mg PO DAILY Rx Instructions: administer with a meal amoxicillin 500 mg tablet 2,000 mg PO ONCE Qty: 4 0RF Rx Instructions: TAKE 4 TABS WITHIN ONE HOUR OF DENTAL PROCEDURE metoprolol tartrate 12.5 MG tablet 12.5 mg PO PRN PRN Rx Instructions: 01/03/19 pt uses for SVT prn acetaminophen [Mapap Extra Strength] 500 MG tablet 1,000 mg PO TID Qty: 60 2RF esomeprazole magnesium [Nexium] 20 mg Capsule,Delayed Release(Dr/Ec) 20 mg PO DAILY Discontinued ibuprofen 600 mg tablet 600 mg PO TID PRNQty: 60 3RF Discharge Instructions Instructions: Apixaban (By mouth), Pulmonary Embolism (DC), Deep Vein Thrombosis (DC) Additional Instructions: Take Apixaban 10 mg twice a day for 7 days and then take 5 mg twice a day. Continue taking Aspirin 81 mg daily. Do not take Ibuprofen. Stand Alone Forms: Nursing Discharge Form Referrals: Tamara Gomez [Primary Care Provider] - 02/04/23 10:20 am () Activity:: Activity as Tolerated Equipment/Supplies:: No Equipment Needed Diet:: Low Sodium Discharge Orders Discharge Orders: Discharge Order (Routine); Ordered 01/23/23 Ordered By: Priyanka Bonds Discharge Data Discharge Date/Time-TO BE ENTERED AT DEPARTURE: 01/23/23 11:09 DS: Summary Time Spent with Patient providing and/or coordinating discharge services: Greater than 30 minutes Status at Discharge Functional status at discharge: independent ambulation Overall status at discharge: patient is progressing back to baseline Mental Status: mental status grossly normal Speech and Movement: speech and movement normal Mood: congruent mood Affect: normal affect Exam Psych Mental Status: mental status grossly normal Speech and Movement: speech and movement normal Mood: congruent mood Affect: normal affect DS: Data Vitals/I&O Vitals and I&O: Vital Signs Temperature 36.5 C 01/23/23 03:35 Temperature Source Skin 01/23/23 03:35 Pulse 78 01/23/23 07:56 Pulse Rhythm Regular 01/23/23 02:05 Pulse 89 01/22/23 09:40 Respiratory Rate 18 01/23/23 03:35 Respiratory Effort Normal, Non-Labored 01/23/23 02:05 Respiratory Depth Normal 01/23/23 02:05 Respiratory Pattern Normal 01/23/23 02:05 Blood Pressure 130/89 01/23/23 03:35 Blood Pressure Mean 110 01/22/23 09:40 Pulse Oximetry 97 01/23/23 03:35 Oxygen Delivery Method Room Air 01/23/23 03:35 Oxygen Flow Rate 0 01/23/23 03:35 Pain Level 8 01/22/23 19:24 Comment sitting Bp 150/94 p=76 standing 160/90 p=69 01/22/23 16:35 Intake & Output 01/22/23 01/22/23 01/23/23 11:59 23:59 11:59 Intake Total 250 / 250 1000 / 1000 Output Total 100 / 100 100 / 100 Balance 150 / 150 900 / 900 Weight 95.4 kg Intake: IV 250 / 250 1000 / 1000 Output: Urine 100 / 100 100 / 100 Other: Urine Color Pale Yellow Yellow Urine Appearance Clear Clear Clear Urine Odor None Normal Voiding Methods Toilet Toilet Data Completed and Pending Labs on day of discharge: Labs from last 24 hours 01/23/23 01/23/23 06:10 06:10 WBC 6.53 RBC 4.09 Hgb 11.7 Hct 36.0 MCV 88 MCH 28.6 MCHC 32.5 RDW 13.4 Plt Count 362 MPV 8.9 Immature Gran % 0.5 Neutrophils % 63.9 Lymphocytes % 27.1 Monocytes % 5.7 Eosinophils % 2.0 Basophils % 0.8 Nucleated RBC % 0.0 Absolute Neutrophils 4.18 Absolute Lymphocytes 1.77 Absolute Monocytes 0.37 Absolute Eosinophils 0.13 Absolute Basophils 0.05 Sodium 139 Potassium 4.1 Chloride 104 Carbon Dioxide 28.2 Anion Gap 6.8 BUN 12 Creatinine 0.9 Est GFR (CKD-EPI 2020) 67.92 Glucose 101 Calcium 9.0 Magnesium 2.1 Total Bilirubin 0.3 AST 14 L ALT 17 Alkaline Phosphatase 96 Total Protein 6.7 Albumin 2.9 L PFSH All Active Problems (Updated 01/22/23 @ 12:25 by Priyanka Bonds NP) Discharge planning issues (Acute) Contraindication to deep vein thrombosis (DVT) prophylaxis (Acute) Bilateral pulmonary embolism (Acute) Acute deep vein thrombosis (DVT) of left lower extremity (Acute) Dizziness (Acute) Lumbar radiculopathy (Acute) Spondylolisthesis, lumbar region (Acute) Pulmonary embolism (Acute) Trochanteric bursitis, left hip (Chronic 07/22/17) Tarsal tunnel syndrome of right side (Acute 01/14/17) Primary osteoarthritis of left hip (Acute 07/22/17) Posterior tibial tendon dysfunction (PTTD) of both lower extremities (Acute 01/14/17) Pes planus of both feet (Acute 01/14/17) History of total left hip replacement (Chronic) DOS: 08/25/17 Dr. 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
[2023-01-23 10:40] VITALS: PULSE 72
== END 2023-01-23 11:09 | disposition home or self-care (01) ==
LOC: ER 09:53 → MS 11:18
PROVIDERS: Emergency Medicine; Nurse Practitioner Family; Admitting Provider Family Medicine; Emergency Provider Physician Assistant; PCP Family Medicine; Visit Provider Family Medicine
DX: I26.99 Other pulmonary embolism without acute cor pulmonale (principal); I47.1 Supraventricular tachycardia; R42 Dizziness and giddiness; I82.432 Acute embolism and thrombosis of left popliteal vein; I82.412 Acute embolism and thrombosis of left femoral vein; I82.442 Acute embolism and thrombosis of left tibial vein; Z86.711 Personal history of pulmonary embolism; M54.16 Radiculopathy, lumbar region; M43.16 Spondylolisthesis, lumbar region; M70.62 Trochanteric bursitis, left hip; Z96.642 Presence of left artificial hip joint; Z96.653 Presence of artificial knee joint, bilateral
CPT/HCPCS: 36415; 71275; 74177; 80053; 83690; 87637; 93005; 96361; 96374; 99285; 81003; 83735; 84484; 85025; 85610; 85730; 93010; 93970; 99222; 99239; G0378; J1885; J3490

== ENCOUNTER 2023-01-23 19:35 | Emergency (ER) | payer MEDICARE, BC, SELFPAY ==
[2023-01-23] VITALS (21 sets, daily range): BP systolic 133–164; BP diastolic 62–90; PULSE 64–82; RESP 12–26; TEMP 36.6–37; O2SAT 97–100
--- NOTE | 2023-01-23 19:30 | RT.EKG_ITS ---
APPROVED REPORT Exam: Resting ECG Reason for Exam: short of breath Patient Location: E HR:68 bpm ECG Measurements Heart Rate 68 AXIS VA 176 P 42 QRSd 141 QRS 32 QT 406 T 13 QTc 432 Conclusion Sinus rhythm...normal P axis, V-rate 60- 99 Right bundle branch block...QRSd>120, terminal axis(90,270) There are no significant changes compared to prior EKG performed on 01/22/2023 at 08:39.
--- NOTE | 2023-01-23 19:45 | DI.CT_ITS ---
Exam(s) CT CHEST PE CTA EXAM: CT CHEST PE CTA CLINICAL HISTORY: known PE with sudden worsening pain/sob tonight. TECHNIQUE: Imaging Protocol: CT angiography of the chest was performed using pulmonary embolus kayla col. Multi planar reconstructions were performed. CONTRAST MATERIAL: Intravenous: Omnipaque 350 Contrast volume: 100 cc COMPARISON: CT CT CHEST PE ABD PELVIS W from 01/22/2023 FINDINGS: CHEST: PULMONARY ARTERIES: When compared to the CT scan of 01/22/2023 the bilateral intraluminal filling def ects in the pulmonary arterial tree exhibit minimal if any significant change.. There is redemonstra tion of large pulmonary embolus in the left main pulmonary artery with extension into upper and lower lobe branches, similar to the previous study. Smaller amount of intraluminal filling defectsare aga in noted in the opposite-right lung, involving right lower lobe pulmonary emboli. Amount of clot keisha d is estimated to be similar to the prior study. LUNGS: There is extensive symmetrical ground-glass density throughout both lung abbott, somewhat incr eased from previous. This may be related to imaging at lower lung volume although actual pulmonary d isease can have similar appearance, including pulmonary edema. There are no pleural effusions. No n ew focal findings in trachea and mainstem bronchi.. MEDIASTINUM: There is no hilar nor mediastinal adenopathy. Visualized thyroid unremarkable. CARDIAC: Cardiomegaly again noted. Ventricular ratio is approximately 1: 1. There is no reflux of c ontrast into the intrahepatic IVC and intrahepatic veins.Caliber of the thoracic aorta is within norm al limits. No evidence of aortic dissection. PARTIALLY VISUALIZED UPPERMOST ABDOMEN: No obvious findings OSSEOUS: No significant osseous lesions.No fractures. IMPRESSION: 1. Compared to the prior CT scan of 1 day prior there is again noted prominent intraluminal filling d efect consistent with pulmonary embolism in the left main pulmonary artery with extension into the up per lower lobe vessels, similar to the previous study. Also unchanged is the previously described sm aller mount of intraluminal filling defect in the right lower lobe. There does not appear to be sign ificant progression of intraluminal filling defects in either lung field.. 2. There is extensive relatively symmetrical ground-glass pulmonary density seen bilaterally, slightl y more so than 1 day prior. This may be related to atelectasis and imaging at low lung volumes altho ugh pulmonary edema can have a similar appearance. Also pulmonary edema and infectious etiologies. 3. RADIATION DOSE DELIVERED: 421.03mGy.cm Total DLP DATA REPOSITORY: All CT scans at this facility are submitted to the National Radiology Data Registry (NRDR) Dose Index Registry (DIR) with the [employer] ([employer]). RADIATION OPTIMIZATION: All CT scans at this facility use at least one of these dose optimization te chniques: automated exposure control; mA and/or kV adjustment per patient size (includes targeted exa ms where dose is matched to clinical indication); or iterative reconstruction.
--- NOTE | 2023-01-23 19:50 | ED.GENADUL_ITS ---
Discharge Plan Disposition Patient Disposition: Home Condition: Good Discharge Details Clinical Impression: Pulmonary embolism Primary Care Provider: Tamara Gomez ED Provider: Randy Alcantara Meds and New Rx's Prescriptions: Continued aspirin 81 mg tablet,delayed release (DR/EC) 81 mg PO DAILY ascorbic acid (vitamin C) [Vitamin C] 500 mg Tablet 500 mg PO DAILY vitamin B complex Tablet 1 tab PO DAILY hydrocortisone 2.5 % Cream 1 applic TOPICAL BID PRN estradiol [Estrace] 0.01 % (0.1 mg/gram) Cream 1 g VAGINAL DAILY alum-mag hydroxide-simeth [Mylanta Maximum Strength] 400-400-40 mg/5 mL Suspension See Rx Instructions .ROUTE .COMPLEX Rx Instructions: PRN As directed Gaviscon 80-14.2 mg Tablet,Chewable 1 tab PO PRN PRN Gareth-Mag 200 mg calcium- 100 mg Tablet,Chewable 1 tab PO DAILY cranberry 400 mg capsule 400 mg PO DAILY Rx Instructions: administer with a meal amoxicillin 500 mg tablet 2,000 mg PO ONCE Qty: 4 0RF Rx Instructions: TAKE 4 TABS WITHIN ONE HOUR OF DENTAL PROCEDURE metoprolol tartrate 12.5 MG tablet 12.5 mg PO PRN PRN Rx Instructions: 01/03/19 pt uses for SVT prn Eliquis 5 mg Tablet 10 mg PO BID 7 Days Qty: 90 0RF Rx Instructions: 10 mg twice a day for 7 days, then 5 mg twice a day acetaminophen [Mapap Extra Strength] 500 MG tablet 1,000 mg PO TID Qty: 60 2RF esomeprazole magnesium [Nexium] 20 mg Capsule,Delayed Release(Dr/Ec) 20 mg PO DAILY Discharge Instructions Care Plan Goals: You were seen for chest pain and shortness of breath in the setting of known recent PE. Your vital signs, exam and repeat CTA are all reassuring with no new clot identified on tonight's CTA. Your pain resolved with Tylenol. Recommend taking Tylenol 2-3 times a day over the weekend for discomfort. Continue your Eliquis and other medications as before. Resume previous discharge instructions from the hospital and follow-up with primary care as directed. Return to ED for any syncope, new chest pain, new shortness of breath, other concerns. Medical Decision Making Patient presents to ED with sudden worsening of chest pain and shortness of breath after being discharged from the hospital this morning. She had been admitted the day before with PE. She has normal vital signs and oxygenation on room air. She seems to be having left-sided chest discomfort causing her shortness of breath more than 2 dyspnea. However she reports an abrupt change and despite being on Eliquis I think a repeat CTA is appropriate. Her previous CTA had shown a left main pulmonary embolus with emboli present peripherally in both lungs. Patient was given IV acetaminophen for her pain. Patient CBC and chemistry remain unchanged. EKG is sinus rhythm with right bundle branch block unchanged. CTA preliminary read continues to show left main pulmonary artery embolus with peripheral emboli as well but no new clot and no change from yesterday. Patient's pain resolved with the IV acetaminophen as did her shortness of breath. Patient informed of results and reassured. She will be discharged home to resume previous discharge instructions and follow-up. Return precautions provided. Medical Records Medical records reviewed: Yes I reviewed the patient's medical records. Medical records narrative: inpatient admission Lab Data Lab results reviewed: Yes I reviewed the patient's lab results. ECG Data Attestation: I personally reviewed and interpreted this ECG (s) as follows: Prior ECG tracings: available for review Interpretation: see EKG HPI General Mode of arrival: ambulatory . Date/Time Provider Initiated Documentation: 01/23/23 19:36 . Limitations to Documentation: no limitations . Information obtained by: patient and old records reviewed . HPI Narrative: Patient presents to ED with sudden onset of worsening left-sided chest pain and shortness of breath. Patient came to the hospital yesterday morning around 6 AM. She was found to have bilateral pulmonary emboli and was admitted to the ospitalist service. She did well overnight and was discharged home this morning on Eliquis. She has now had 4 doses including this evening's dose. She developed sharp left-sided chest pain and increased shortness of breath abruptly this evening. She denies any fever, cough, abdominal pain. She denies any syncope. She was concerned and return for reevaluation. Related Data Home Medications Medication Instructions Recorded Confirmed metoprolol tartrate 25 mg tablet 12.5 mg PO PRN PRN 08/19/17 01/23/23 aspirin 81 mg tablet,delayed 81 mg PO DAILY 02/04/19 01/23/23 release acetaminophen 500 mg tablet (Mapap 1,000 mg PO TID #60 tabs 05/08/20 01/23/23 Extra Strength) esomeprazole magnesium 20 mg 20 mg PO DAILY 05/08/20 01/23/23 capsule,delayed release (Nexium) Al hyd-Mg tr-alg ac-sod bicarb 80 1 tab PO PRN PRN 11/16/20 01/23/23 mg-14.2 mg chewable tablet (Gaviscon) aluminum-mag hydroxide-simethicone See Rx Instructions .Route .COMPLEX 11/16/20 01/23/23 400 mg-400 mg-40 mg/5 mL oral susp (Mylanta Maximum Strength) ascorbic acid (vitamin C) 500 mg 500 mg PO DAILY 11/16/20 01/23/23 tablet (Vitamin C) calcium carbonate 200 mg-magnesium 1 tab PO DAILY 11/16/20 01/23/23 oxide,carbonate 100 mg chew tablet (Gareth-Mag) estradiol 0.01% (0.1 mg/gram) 1 g vaginal DAILY 11/16/20 01/23/23 vaginal cream (Estrace) hydrocortisone 2.5 % topical cream 1 applic topical BID PRN 11/16/20 01/23/23 vitamin B complex 1 tab PO DAILY 11/16/20 01/23/23 cranberry 400 mg capsule 400 mg PO DAILY 11/26/20 01/23/23 amoxicillin 500 mg tablet 2,000 mg PO ONCE #4 tabs 08/26/21 01/23/23 apixaban 5 mg tablet (Eliquis) 10 mg PO BID 7 days #90 tabs 01/23/23 01/23/23 Previous Rx's Medication Instructions Recorded acetaminophen 500 mg tablet (Mapap 1,000 mg PO TID #60 tabs 05/08/20 Extra Strength) amoxicillin 500 mg tablet 2,000 mg PO ONCE #4 tabs 08/26/21 apixaban 5 mg tablet (Eliquis) 10 mg PO BID 7 days #90 tabs 01/23/23 Allergies Allergy/AdvReac Type Severity Reaction Status Date / Time animal dander Allergy Unknown Unverified 01/23/23 19:47 fexofenadine Allergy Unknown Unverified 01/23/23 19:47 nickel Allergy Unknown Unverified 01/23/23 19:47 perfume Allergy Unknown Unverified 01/23/23 19:47 Antihistamines Allergy Unknown Uncoded 01/23/23 19:47 mold spores Allergy Unknown Uncoded 01/23/23 19:47 General Stated Complaint: SOB/SuddenOnset JUSTYN: 2 Review of Systems Narrative: Per HPI PFSH All Active Problems (Updated 01/23/23 @ 21:23 by Randy Alcantara MD) Discharge planning issues (Acute) Contraindication to deep vein thrombosis (DVT) prophylaxis (Acute) Bilateral pulmonary embolism (Acute) Acute deep vein thrombosis (DVT) of left lower extremity (Acute) Dizziness (Acute) Lumbar radiculopathy (Acute) Spondylolisthesis, lumbar region (Acute) Pulmonary embolism (Acute) Trochanteric bursitis, left hip (Chronic 07/22/17) Tarsal tunnel syndrome of right side (Acute 01/14/17) Primary osteoarthritis of left hip (Acute 07/22/17) Posterior tibial tendon dysfunction (PTTD) of both lower extremities (Acute 01/14/17) Pes planus of both feet (Acute 01/14/17) History of total left hip replacement (Chronic) DOS: 08/25/17 Dr. Lee Tendinitis of left rotator cuff (Acute) Sensorineural hearing loss of both ears (Chronic) Trigger finger, right ring finger (Acute) s/p surgical release 05/08/2020 Medical History Pulmonary embolism SVT (supraventricular tachycardia) Surgical History H/O total knee replacement bilat S/P total hip arthroplasty Social History Smoking/Tobacco Use Status: Former Tobacco Use Smoking risk assessment performed?: Yes Alcohol Intake: current Alcohol Intake frequency: a few times a month Drug use: Never Substance use type: does not use Housing: house current occupation: retired - site admin at [employer] Current gender identity: female What type of physical activity do you participate in: regular exercise Do you feel safe at home: Yes Do you feel safe in your relationship?: Yes Exam Narrative Exam Narrative: Const: WDWN female in NAD. HEENT: NC/AT. Normal facial exam. Eyes: Normal conjunctiva and sclera. Neck: Supple. Trachea midline. Lungs: Normal respiratory effort. Lungs are clear. Cor: RRR without murmur/gallop. Good radial pulses. GI: Soft. NT/ND. No guarding or rebound. Neuro: A+O x 3. Normal speech, mentation, gait. Cranial nerves II - XII grossly intact. No gross motor or sensory deficit. Course Vital Signs Vital signs: Vital Signs Temperature 97.9 F 01/23/23 19:42 Pulse 80 01/23/23 19:42 Respiratory Rate 21 01/23/23 19:42 Blood Pressure 163/88 H 01/23/23 19:42 Pulse Oximetry 99 01/23/23 19:42 Temperature 97.9 F 01/23/23 19:42 Pulse 80 01/23/23 19:42 Respiratory Rate 21 01/23/23 19:42 Respiratory Effort Normal, Short of Breath 01/23/23 19:42 Blood Pressure 163/88 H 01/23/23 19:42 Blood Pressure Position Supine 01/23/23 19:42 Pulse Oximetry 99 01/23/23 19:42 Oxygen Delivery Method Room Air 01/23/23 19:42 Oxygen Flow Rate 0 01/23/23 19:42 Pain Level 10 01/23/23 19:42
[2023-01-23 20:14] LABS: Abs Immature Grans 0.03 10^3/uL (0.0-0.06); Absolute Basophil Count 0.09 10^3/uL (0.0-0.2); Absolute Eosinophil Count 0.12 10^3/uL (0.0-0.7); Absolute Lymphocyte Count 2.43 10^3/uL (1.2-3.4); Absolute Monocyte Count 0.46 10^3/uL (0.1-0.8); Absolute Neutrophil Count 5.84 10^3/uL (1.2-6.7); Eosinophils % 1.3; HCT 40.4 % (36.0-46.0); Immature Grans % 0.3; Lymphocytes % 27.1; MCH 28.3 pg (27.0-33.0); MCHC 32.2 % (32.0-36.0); MCV 88 fL (80-95); MPV 8.8 fL (8.0-11.0); Monocytes % 5.1; Neutrophils % 65.2; Platelet Count 432 10^3/uL (130-400); RDW 13.3 % (11.7-14.6); WBC 8.97 10^3/uL (4.4-10.8)
[2023-01-23 20:22] LABS: Anion Gap 6.4 mmol/L (3-11); BUN 14 mg/dL (7-18); CO2 28.6 mmol/L (21.0-32.0); Calcium 9.4 mg/dL (8.5-10.1); Chloride 102 mmol/L (98-107); Estimated GFR 59.86 (mL/min/1.73m2); Glucose 136 mg/dL (74-106); Potassium 3.6 mmol/L (3.5-5.1); Sodium 137 mmol/L (136-145)
[2023-01-23] MEDS: Normal Saline - Diluent 50 ML VIAL IJ (20:38)
[2023-01-23] MEDS: Omnipaque 350 MG/ML 100 ML BTL IJ (20:38)
--- NOTE | 2023-01-23 21:06 | DI.VRAD_ITS ---
PROCEDURE INFORMATION: Exam: CTA Chest With Contrast Exam date and time: 01/23/2023 8:38 PM Age: 72 years old Clinical indication: Shortness of breath and other: Known pe, sudden worsening pain TECHNIQUE: Imaging protocol: Computed tomographic angiography of the chest with contrast. 3D rendering (Not supervised by radiologist): MIP and/or 3D reconstructed images were created by the technologist. Contrast material: OMNIPAQUE 350; Contrast volume: 100 ml; Contrast route: INTRAVENOUS (IV); COMPARISON: CT CHEST PE ABD PELVIS W 01/22/2023 6:53 AM FINDINGS: Limitations: Artifact from motion. Pulmonary arteries: Large pulmonary embolism redemonstrated in the main left pulmonary artery with extension of embolic material into several upper and lower lobe pulmonary artery branches, not significantly changed as compared with the exam from yesterday. Small right lower lobe pulmonary embolism also redemonstrated but largely obscured by motion and not well evaluated. Within the limits of the exam, no new pulmonary emboli demonstrated. Aorta: No thoracic aortic aneurysm. Thyroid: Thyroid gland partially excluded from view but grossly unremarkable through its visualized portion. Lungs: Lung abbott somewhat obscured by artifact from breathing motion. Extensive symmetrically distributed ground-glass opacity, as seen on the comparison exam, nonspecific. No region of focal pulmonary consolidation. Pleural spaces: No pleural effusion or pneumothorax. Heart: Mildly enlarged heart. Heart RV/LV ratio: 0.88 arguing against right heart strain. Lymph nodes: No pathologically enlarged mediastinal or hilar lymph nodes. Diaphragm: Small hiatal hernia. Bones/joints: Lower ribs partially excluded from view and incompletely evaluated. Otherwise, no acute fracture seen among the bones of the chest. Spinal degenerative change with small anterior osteophytes at multiple levels and thoracic kyphosis. Soft tissues: No gross soft tissue mass or fluid collection seen in the chest wall. IMPRESSION: 1. Large pulmonary embolism redemonstrated in the main left pulmonary artery with extension of embolic material into several upper and lower lobe pulmonary arteries, as seen on the prior exam from yesterday, not significantly changed. Small right lower lobe pulmonary embolism also redemonstrated but largely obscured by motion on today's exam and not well evaluated, though not increased in size. No new pulmonary emboli demonstrated. 2. Extensive symmetrically distributed ground-glass pulmonary density throughout both lungs, also seen the prior exam from yesterday. Although nonspecific, atelectasis resulting from imaging at low lung volumes could have this appearance. Pulmonary edema or infection could have a similar appearance although atelectasis is favored. Clinical correlation is recommended. Dictated and Authenticated by: Aneesh Negron MD. Ordering:TYRELL Padilla MD
== END 2023-01-23 21:38 | disposition home or self-care (01) ==
PROVIDERS: Emergency Provider Emergency Medicine; PCP Family Medicine
DX: I26.99 Other pulmonary embolism without acute cor pulmonale (principal); R06.02 Shortness of breath; R07.9 Chest pain, unspecified
CPT/HCPCS: 36415; 71275; 80048; 80053; 93005; 99285; 83735; 85025; 93010; 99284; J3490

== ENCOUNTER 2023-02-05 12:02 | Outpatient (CLI) | payer MEDICARE, BC, SELFPAY ==
--- NOTE | 2023-02-05 13:25 | DI.CT_ITS ---
Exam(s) CT HEAD WO EXAM: CT HEAD WO CLINICAL HISTORY: UNSPECIFIED FRANCIS, R51.9. TECHNIQUE: Imaging Protocol: Axial computed tomography images with coronal and sagittal reformatted images were created and reviewed COMPARISON: CT HEAD WITHOUT CONTRAST from 01/30/2017 FINDINGS: Ventricles and Extra axial spaces: Normal in size and morphology for the patient's age. Hemorrhage: None. Cerebral parenchyma: There is no evidence of an acute territorial infarct. Midline shift: None. Brainstem/Cerebellum: Normal. Calvarium: Normal. Visualized Paranasal sinuses/Mastoids: Clear. Soft Tissues: Unremarkable. IMPRESSION: No acute intracranial process. RADIATION DOSE DELIVERED: 687.12mGy.cm Total DLP DATA REPOSITORY: All CT scans at this facility are submitted to the National Radiology Data Registry (NRDR) Dose Index Registry (DIR) with the [employer] [place] [employer] (ACR). RADIATION OPTIMIZATION: All CT scans at this facility use at least one of these dose optimization te chniques: automated exposure control; mA and/or kV adjustment per patient size (includes targeted exa ms where dose is matched to clinical indication); or iterative reconstruction.
== END 2023-02-05 12:22 ==
LOC: DI 12:03
PROVIDERS: PCP Family Medicine; Visit Provider Internal Medicine
DX: R51.9 Headache, unspecified (principal)
CPT/HCPCS: 70450

== ENCOUNTER 2023-03-13 10:08 | Emergency (ER) | payer MEDICARE, BC, SELFPAY ==
[2023-03-13] VITALS (20 sets, daily range): BP systolic 142–181; BP diastolic 76–96; PULSE 56–77; RESP 13–20; TEMP 36.8; O2SAT 99
--- NOTE | 2023-03-13 10:00 | RT.EKG_ITS ---
APPROVED REPORT Exam: Resting ECG Reason for Exam: Chest pain Patient Location: E HR:65 bpm ECG Measurements Heart Rate 65 AXIS [place] 163 P 49 QRSd 138 QRS 30 QT 407 T 5 QTc 422 Conclusion Sinus rhythm...normal P axis, V-rate 60- 99 Right bundle branch block...QRSd>120, terminal axis(90,270)
--- NOTE | 2023-03-13 10:37 | W.ED.GENAD ---
Discharge Plan Disposition Patient Disposition: Home Discharge Details Clinical Impression: Dyspnea Primary Care Provider: Tamara Gomez ED Provider: Shemar Barajas Home Meds and New Rx's Prescriptions: No Action aspirin 81 mg tablet,delayed release (DR/EC) 81 mg PO DAILY ascorbic acid (vitamin C) [Vitamin C] 500 mg Tablet 500 mg PO DAILY vitamin B complex Tablet 1 tab PO DAILY hydrocortisone 2.5 % Cream 1 applic TOPICAL BID PRN estradiol [Estrace] 0.01 % (0.1 mg/gram) Cream 1 g VAGINAL DAILY alum-mag hydroxide-simeth [Mylanta Maximum Strength] 400-400-40 mg/5 mL Suspension See Rx Instructions .ROUTE .COMPLEX Rx Instructions: PRN As directed Gaviscon 80-14.2 mg Tablet,Chewable 1 tab PO PRN PRN Gareth-Mag 200 mg calcium- 100 mg Tablet,Chewable 1 tab PO DAILY cranberry 400 mg capsule 400 mg PO DAILY Rx Instructions: administer with a meal amoxicillin 500 mg tablet 2,000 mg PO ONCE Qty: 4 0RF Rx Instructions: TAKE 4 TABS WITHIN ONE HOUR OF DENTAL PROCEDURE metoprolol tartrate 12.5 MG tablet 12.5 mg PO PRN PRN Rx Instructions: 01/03/19 pt uses for SVT prn acetaminophen [Mapap Extra Strength] 500 MG tablet 1,000 mg PO TID Qty: 60 2RF esomeprazole magnesium [Nexium] 20 mg Capsule,Delayed Release(Dr/Ec) 20 mg PO DAILY Discharge Instructions Instructions: Dyspnea (ED) Additional Instructions: Please continue taking all your regular medication. Expect your leg to have intermittent swelling as you go through your physical therapy. Your chest x-ray was normal. Your EKG did not show any signs of heart problems. Her cardiac enzymes were also negative. Please follow-up with primary care doctor in the next week as needed. Medical Decision Making 72-year-old lady sent to the emergency room by physical therapy for evaluation of shortness of breath. On arrival to the emergency department for shortness of breath but mostly resolved. It resolved with time, within approxi-20 minutes. Normal work of breathing once the patient relaxed. She was ambulated emergency department without any increase of work of breathing. Normal saturations on ambulation. Patient had cardiac work-up to rule out ACS. EKG did not show any signs of ischemia. Serial troponins were negative. Chest x-ray did not show any cardiomegaly. No infiltrates. The patient is extremely compliant with her Eliquis. The swelling of her legs is actually significantly less than it was last week. I do not believe that she requires Doppler ultrasound of the lower extremity given that the swelling is resolving. I do not believe that she requires further imaging of her chest to look at any clot burden given that her shortness of breath is resolved, it is induced by exercise. HPI General Date/Time Provider Initiated Documentation: 03/13/23 10:35. HPI Narrative: 72-year-old lady presented to the emergency room after physical therapy further evaluation of some shortness of breath, chest discomfort, left shoulder discomfort that she verbalized to the physical therapist. She is not short of breath currently. She also had some teeth pain that she attributes some dental that she had done yesterday. The patient states that she gets these episodes of anxiety where she is concerned that she may be having more pulmonary embolisms and is able to normally calm herself. She had an episode this morning when asked how she was doing by the physical therapist. After mentioning her symptoms she was sent to the emergency department. Currently the emergency department she has no chest pain. No shortness of breath. She has had no cough. No fevers no chills. No weight gain or weight loss. The patient does endorse intermittent vertigo for which she takes meclizine. She also states that she had a difficulty falling asleep last night and she took a sleep aid.. Creasing that she is overly tired from all the work that she has been doing and attributes the left shoulder pain to being in the same position too long doing some crafts. Related Data Home Medications Medication Instructions Recorded Confirmed metoprolol tartrate 25 mg tablet 12.5 mg PO PRN PRN 08/19/17 01/23/23 aspirin 81 mg tablet,delayed 81 mg PO DAILY 02/04/19 03/13/23 release acetaminophen 500 mg tablet (Mapap 1,000 mg PO TID #60 tabs 05/08/20 03/13/23 Extra Strength) esomeprazole magnesium 20 mg 20 mg PO DAILY 05/08/20 03/13/23 capsule,delayed release (Nexium) Al hyd-Mg tr-alg ac-sod bicarb 80 1 tab PO PRN PRN 11/16/20 01/23/23 mg-14.2 mg chewable tablet (Gaviscon) aluminum-mag hydroxide-simethicone See Rx Instructions .Route .COMPLEX 11/16/20 01/23/23 400 mg-400 mg-40 mg/5 mL oral susp (Mylanta Maximum Strength) ascorbic acid (vitamin C) 500 mg 500 mg PO DAILY 11/16/20 03/13/23 tablet (Vitamin C) calcium carbonate 200 mg-magnesium 1 tab PO DAILY 11/16/20 03/13/23 oxide,carbonate 100 mg chew tablet (Gareth-Mag) estradiol 0.01% (0.1 mg/gram) 1 g vaginal DAILY 11/16/20 03/13/23 vaginal cream (Estrace) hydrocortisone 2.5 % topical cream 1 applic topical BID PRN 11/16/20 01/23/23 vitamin B complex 1 tab PO DAILY 11/16/20 03/13/23 cranberry 400 mg capsule 400 mg PO DAILY 11/26/20 01/23/23 amoxicillin 500 mg tablet 2,000 mg PO ONCE #4 tabs 08/26/21 03/13/23 Previous Rx's Medication Instructions Recorded acetaminophen 500 mg tablet (Mapap 1,000 mg PO TID #60 tabs 05/08/20 Extra Strength) amoxicillin 500 mg tablet 2,000 mg PO ONCE #4 tabs 08/26/21 Allergies Allergy/AdvReac Type Severity Reaction Status Date / Time perfume Allergy Intermediate Unverified 03/13/23 10:27 animal dander Allergy Mild Unverified 03/13/23 10:28 General Stated Complaint: SOB/SuddenOnset JUSTYN: 3 Review of Systems Narrative: 10 point review of systems is negative unless otherwise stipulated in the HPI. PFSH All Active Problems (Updated 03/13/23 @ 14:19 by Shemar Barajas MD) Dyspnea (Acute) Bilateral pulmonary embolism (Acute) Acute deep vein thrombosis (DVT) of left lower extremity (Acute) Dizziness (Acute) Lumbar radiculopathy (Acute) Spondylolisthesis, lumbar region (Acute) Pulmonary embolism (Acute) Trochanteric bursitis, left hip (Chronic 07/22/17) Tarsal tunnel syndrome of right side (Acute 01/14/17) Primary osteoarthritis of left hip (Acute 07/22/17) Posterior tibial tendon dysfunction (PTTD) of both lower extremities (Acute 01/14/17) Pes planus of both feet (Acute 01/14/17) History of total left hip replacement (Chronic) DOS: 08/25/17 Dr. Lee Tendinitis of left rotator cuff (Acute) Sensorineural hearing loss of both ears (Chronic) Trigger finger, right ring finger (Acute) s/p surgical release 05/08/2020 Medical History Pulmonary embolism SVT (supraventricular tachycardia) Surgical History H/O total knee replacement bilat S/P total hip arthroplasty Social History Smoking/Tobacco Use Status: Former Tobacco Use Smoking risk assessment performed?: Yes Alcohol Intake: current Alcohol Intake frequency: a few times a month Drug use: Never Substance use type: does not use Housing: house current occupation: retired - site admin at [employer] Current gender identity: female What type of physical activity do you participate in: regular exercise Do you feel safe at home: Yes Do you feel safe in your relationship?: Yes Exam Narrative Exam Narrative: General: A,A Ox3, Calm, no apparent distress, well developed, pleasant and cooperative Head Size/Shape: normocephalic, atraumatic Eyes Pupils: PERRLA Extraocular Mobility: intact and symmetrical Conjunctiva: non-injected, anicteric, no discharge Ears, Nose, Throat Nares: patent bilaterally Oral Cavity: moist Neck: no masses, no crepitus Lymph Nodes: no cervical lymphadenopathy Respiratory Respiratory Effort: no dyspnea Auscultation: clear to auscultation bilaterally, normal breath sounds, no wheezing, no rales/crackles Cardiovascular Heart Auscultation: regular rate and rhythm, normal S1, normal S2, no murmurs, no rubs, no gallops, Pulse Quality: +2 equal bilaterally, location(s) radial Abdomen Inspection and Palpation: soft, non-tender, non-distended, no hepatosplenomegaly Musculoskeletal System Joints, Bones, and Muscles: no deformities Extremities: warm and well-perfused, no cyanosis, capillary refill <2 seconds Skin Skin Inspection: no rash, no lesions, no bruising Neurological Motor: normal tone, normal strength, moving all extremities equally Reflexes: deep tendon reflexes 2+ bilaterally, no clonus Psychiatric: good insight, good judgement, normal mood and affect Course Vital Signs Vital signs: Vital Signs Temperature 36.8 C 03/13/23 10:16 Pulse 66 03/13/23 10:16 Respiratory Rate 18 03/13/23 10:16 Blood Pressure 180/96 H 03/13/23 10:16 Pulse Oximetry 99 03/13/23 10:16 Temperature 36.8 C 03/13/23 10:16 Temperature Source Oral 03/13/23 10:16 Pulse 66 03/13/23 10:16 Respiratory Rate 18 03/13/23 10:20 Respiratory Effort Normal 03/13/23 10:20 Respiratory Depth Normal 03/13/23 10:20 Respiratory Pattern Normal 03/13/23 10:20 Blood Pressure 180/96 H 03/13/23 10:16 Pulse Oximetry 99 03/13/23 10:16 Oxygen Delivery Method Room Air 03/13/23 10:16 Oxygen Flow Rate 0 03/13/23 10:16 Pain Level 2 03/13/23 10:20
[2023-03-13 10:56] LABS: Abs Immature Grans 0.03 10^3/uL (0.0-0.06); Absolute Basophil Count 0.06 10^3/uL (0.0-0.2); Absolute Eosinophil Count 0.11 10^3/uL (0.0-0.7); Absolute Lymphocyte Count 1.31 10^3/uL (1.2-3.4); Absolute Monocyte Count 0.48 10^3/uL (0.1-0.8); Absolute Neutrophil Count 4.88 10^3/uL (1.2-6.7); Basophils % 0.9; Eosinophils % 1.6; HCT 40.3 % (36.0-46.0); HGB 13.5 g/dL (11.2-15.7); Immature Grans % 0.4; Lymphocytes % 19.1; MCH 29.1 pg (27.0-33.0); MCHC 33.5 % (32.0-36.0); MCV 87 fL (80-95); MPV 9.1 fL (8.0-11.0); Platelet Count 336 10^3/uL (130-400); RBC 4.64 10^6/uL (3.93-5.22); RDW 14.3 % (11.7-14.6); RDW-SD 45.7 fL; WBC 6.87 10^3/uL (4.4-10.8)
--- NOTE | 2023-03-13 11:12 | DI.RAD_ITS ---
Exam(s) XR CHEST 2V PA LATERAL EXAM: XR CHEST 2V PA LATERAL CLINICAL HISTORY: lonny TECHNIQUE: 2D digital imaging was performed of the chest. Two images were obtained. PA and lateral views were obtained. COMPARISON: CR CHEST 2 VIEWS PA,LAT from 12/15/2017 FINDINGS: MEDIASTINUM: Normal. HEART: Normal. PULMONARY VASCULATURE: Normal. LUNGS: Clear. PLEURAL SPACE: No pleural effusion or pneumothorax. BONE:Within normal limits for the patient's age. OTHER FINDINGS:Normal. IMPRESSION: No acute pulmonary findings. DATA REPOSITORY: RADIATION DOSE DELIVERED:
[2023-03-13 11:32] LABS: Anion Gap 5.8 mmol/L (3-11); BUN 13 mg/dL (7-18); CO2 30.2 mmol/L (21.0-32.0); CREATININE 0.9 mg/dL (0.55-1.02); Calcium 9.6 mg/dL (8.5-10.1); Chloride 105 mmol/L (98-107); Estimated GFR 67.92 (mL/min/1.73m2); Glucose 98 mg/dL (74-106); Potassium 4.3 mmol/L (3.5-5.1); Sodium 141 mmol/L (136-145); Troponin I < 50 ng/L (<or=60)
[2023-03-13 14:06] LABS: Troponin I < 50 ng/L (<or=60)
== END 2023-03-13 14:24 | disposition home or self-care (01) ==
PROVIDERS: Emergency Provider Emergency Medicine; PCP Family Medicine
DX: R06.09 Other forms of dyspnea (principal); R06.02 Shortness of breath
CPT/HCPCS: 36415; 80048; 93005; 99283; 71046; 84484; 85025; 93010

== ENCOUNTER 2023-06-02 09:28 | Outpatient (REF) | payer MEDICARE, BC, SELFPAY ==
[2023-06-02 18:11] LABS: ALT 24 U/L (14-59); AST 15 U/L (15-37); Albumin 3.6 g/dL (3.4-5.0); Alkaline Phosphatase 89 U/L (46-116); Anion Gap 7.5 mmol/L (3-11); BUN 14 mg/dL (7-18); Bilirubin, Total 0.5 mg/dL (0.2-1.0); CO2 29.5 mmol/L (21.0-32.0); CREATININE 0.9 mg/dL (0.55-1.02); Calcium 9.3 mg/dL (8.5-10.1); Calculated LDL 107 mg/dL (<100); Chloride 104 mmol/L (98-107); Cholesterol 202 mg/dL (<200); Estimated GFR 67.92 (mL/min/1.73m2); Glucose 92 mg/dL (74-106); HDL Cholesterol 83 mg/dL (40-60); Potassium 4.6 mmol/L (3.5-5.1); Sodium 141 mmol/L (136-145); Total Protein 7.1 g/dL (6.4-8.2); Triglyceride 62 mg/dL (<150)
[2023-06-02 19:12] LABS: Vitamin D 25 Total 31.5 ng/mL (30-100)
== END 2023-06-02 09:29 | disposition home or self-care (01) ==
LOC: NCHCN 09:28
PROVIDERS: PCP Family Medicine; Visit Provider Family Medicine
DX: E55.9 Vitamin D deficiency, unspecified (principal); E66.9 Obesity, unspecified; E78.79 Other disorders of bile acid and cholesterol metabolism
CPT/HCPCS: 80053; 80061; 82306

== ENCOUNTER 2023-06-08 13:56 | Outpatient (REF) | payer MEDICARE, BC, SELFPAY | END 2023-06-08 13:57 | disposition home or self-care (01) | LOC: NCHCN 13:56 | PROVIDERS: PCP Family Medicine; Visit Provider Nurse Practitioner Family | DX: N39.0 Urinary tract infection, site not specified (principal) | CPT/HCPCS: 87077; 87086; 87186 ==

== ENCOUNTER → 2023-06-24 02:00 | Outpatient (CLI) | payer MEDICARE, BC, SELFPAY ==
--- NOTE | 2023-06-24 | DI.MAMMO_ITS ---
Exam(s) MAMMO SCREENING EXAM: MAMMO SCREENING CLINICAL HISTORY: SCREENING, Z12.31. TECHNIQUE: Bilateral full field digital CC and MLO mammographic images were obtained with 3D tomosyn thesis and utilizing computer aided detection (CAD). COMPARISON: Prior mammograms were reviewed. FINDINGS: There has been no significant change in the appearance and distribution of the fibroglandular tissue. There are no CAD designations. There are no new spiculated masses nor malignant appearing microcalcification groups. There is no significant architectural distortion nor skin thickening-retraction. IMPRESSION: No radiographic evidence of malignancy. BI-RADS Category 1 - Negative Breast Density - Category B - Scattered areas of fibroglandular density Breast density Category C or D implies that the patient has dense breast tissue. Dense breast tissue can make it harder to find cancer on a mammogram. Dense breast tissue is also associated with an incr eased risk of breast cancer. This information about the result of the mammogram report was provided to the patient to raise their awareness. Use this report when you speak with the patient about their risks for breast cancer, which includes their family history. At that time, you may recommend additional screening tests (Ultrasoun d or MRI) as these tests may add significant information. A negative radiographic report should not delay biopsy if a dominant or clinically suspicious mass is present. Up to ten percent of cancers are not identified on mammography. A negative report may reinforce clinical impression. Adenosis and dense breasts may obscure an underlying neoplasm. False positive reports average 6 to 10%. Patient will receive a letter notifying them of these results.
== END ==
PROVIDERS: PCP Family Medicine; Visit Provider Family Medicine
DX: Z12.31 Encounter for screening mammogram for malignant neoplasm of breast (principal)
CPT/HCPCS: 77063; 77067

== ENCOUNTER → 2023-06-26 00:25 | Outpatient (CLI) | payer MEDICARE, BC, SELFPAY ==
--- NOTE | 2023-06-26 09:39 | DI.RAD_ITS ---
Exam(s) XR CHEST 2V PA LATERAL EXAM: XR CHEST 2V PA LATERAL CLINICAL HISTORY: CHRONIC COUGH, R05.3 TECHNIQUE: 2D digital imaging was performed. COMPARISON: CR XR CHEST 2V PA LATERAL from 03/13/2023 FINDINGS: HEART: Normal size. Aorta: Ectatic. PULMONARY VASCULATURE: Normal. LUNGS: Clear. PLEURAL SPACE: No pleural effusion or pneumothorax. BONE:Mild pectus excavatum deformity. Degenerative changes in the spine. IMPRESSION: No acute abnormality. DATA REPOSITORY: RADIATION DOSE DELIVERED:
== END ==
PROVIDERS: PCP Family Medicine; Visit Provider Family Medicine
DX: R05.3 Chronic cough (principal)
CPT/HCPCS: 71046

== ENCOUNTER 2023-08-21 12:33 | Emergency (ER) | payer MEDICARE, BC, SELFPAY ==
[2023-08-21 12:41] VITALS: BP 148/95; PULSE 62; RESP 20; TEMP 36.4; O2SAT 99
--- NOTE | 2023-08-21 13:15 | DI.CT_ITS ---
Exam(s) CT ABDOMEN PELVIS W EXAM: CT ABDOMEN PELVIS W CLINICAL HISTORY: LLQ abd Pain TECHNIQUE: Imaging Protocol: Axial computed tomography images with coronal and sagittal reformatted images were created and reviewed CONTRAST MATERIAL: Intravenous: Omnipaque 350 Contrast volume:100 mL Oral: No COMPARISON: CT CT CHEST PE CTA from 01/23/2023 FINDINGS: The examination is limited due to patient motion artifact. ABDOMEN: Lung Bases: Normal where visualized. Liver: Normal density. No measurable mass. Portal, Superior Mesenteric, and Splenic Veins: Unremarkable. Gallbladder and Biliary Tract: No radiodense calculus or dilation. Pancreas: Normal density, no abnormal calcifications or inflammatory process. Spleen: Normal. Adrenals: No masses seen. Kidneys: Normal size, contour and axis. No radiodense stones or obstructive uropathy. No masses seen. Abdominal Aorta: Abdominal portion non-dilated. Atherosclerosis. Bowel: There is diverticulosis of the colon. There is focal bowel wall thickening and pericolonic in flammation at the junction of the descending colon and proximal sigmoid colon suspicious for acute di verticulitis. There is no evidence of bowel obstruction. Appendix is unremarkable. Peritoneal Cavity: No ascites, collection or mesenteric inflammatory response. No free air. Lymph Nodes: Within normal limits. Bones: Within normal limits for the patient's age. There is a left total hip replacement. Grade 1 s pondylolisthesis of L4 on L5 is present. Soft Tissues: Unremarkable. PELVIS: Bladder: Symmetric distention, no gross wall thickening. Reproductive Organs: Unremarkable as visualized. Lymph Nodes: Within normal limits. Bones: Within normal limits for the patient's age. IMPRESSION: Findings of acute diverticulitis involving the junction of the descending and sigmoid colon. No absc ess or free air. RADIATION DOSE DELIVERED: Total DLP DATA REPOSITORY: All CT scans at this facility are submitted to the National Radiology Data Registry (NRDR) Dose Index Registry (DIR) with the [employer] ([employer]). RADIATION OPTIMIZATION: All CT scans at this facility use at least one of these dose optimization te chniques: automated exposure control; mA and/or kV adjustment per patient size (includes targeted exa ms where dose is matched to clinical indication); or iterative reconstruction.
--- NOTE | 2023-08-21 13:16 | ED.GENADUL_ITS ---
Discharge Plan Disposition Patient Disposition: Home Condition: Stable Discharge Details Clinical Impression: Diverticulitis large intestine w/o perforation or abscess w/o bleeding Primary Care Provider: Tamara Gomez ED Provider: Jaye Estrella Home Meds and New Rx's Prescriptions: New amoxicillin-pot clavulanate 875-125 mg tablet 1 tab PO BID 10 Days Qty: 20 0RF Continued ascorbic acid (vitamin C) [Vitamin C] 500 mg Tablet 500 mg PO DAILY vitamin B complex Tablet 1 tab PO DAILY hydrocortisone 2.5 % Cream 1 applic TOPICAL BID PRN estradiol [Estrace] 0.01 % (0.1 mg/gram) Cream 1 g VAGINAL DAILY alum-mag hydroxide-simeth [Mylanta Maximum Strength] 400-400-40 mg/5 mL Suspension See Rx Instructions .ROUTE .COMPLEX Rx Instructions: PRN As directed Gaviscon 80-14.2 mg Tablet,Chewable 1 tab PO PRN PRN Gareth-Mag 200 mg calcium- 100 mg Tablet,Chewable 1 tab PO DAILY Eliquis 5 mg tablet 5 mg PO BID meclizine 25 mg tablet 25 mg PO TID PRN omeprazole 20 mg capsule,delayed release(DR/EC) 20 mg PO DAILY cholecalciferol (vitamin D3) 25 mcg (1,000 unit) capsule 25 mcg PO DAILY metoprolol tartrate 25 mg tablet 25 mg PO BID PRN Rx Instructions: 01/03/19 pt uses for SVT prn acetaminophen [Mapap Extra Strength] 500 MG tablet 1,000 mg PO TID Qty: 60 2RF Discharge Instructions Instructions: Diverticulitis (ED), Diverticulitis Diet (ED) Additional Instructions: You do have some diverticulitis in the left lower quadrant of your abdomen on CT. No significant complications like perforation or air. Please take the antibiotic twice daily as directed. You may also practice a bland diet stay away from anything seeds no nuts. Clear liquid diet for few days will be helpful and then advance as tolerated. Return to the ER for any vomiting, fever unable to keep medications down or any severe concerns. Follow up with primary care provider in 3-5 days. Return to ED sooner if any worsening or concerns. Increase oral fluids. Please take Tylenol or Ibuprofen with food every 4-6 hours as needed for pain and swelling. Referrals: Tamara Gomez [Primary Care Provider] - 5 days Discharge Data Discharge Date/Time-TO BE ENTERED AT DEPARTURE: 08/21/23 16:02 Medical Decision Making 73-year-old female presents to the ER coming by her family with a chief com plaint of left lower quadrant abdominal pain which worsened today. Patient was seen at urgent care prior to arrival and was sent here for further eval. Denies any nausea vomiting diarrhea no fever. She does have a past medical history of PE, SVT total hip replacement Work-up ordered including CBC CMP lipase, urinalysis. See lab results below, no leukocytosis no left shift. Urinalysis shows no evidence of urinary tract infection no leukocytes no nitrites. CT abd pelvis ordered which shows left sigmoid colon diverticulitis without perforation. Patient discharged with Augmentin and relayed home care instructions strict return instructions and follow-up care. This text was generated using [employer] dictation system, please disregard any oddities of phrase or misspellings. Patient remained hemodynamically stable throughout the remainder of her stay. Instructed to follow-up with PCP. Differential Diagnosis Differential Diagnosis: Includes but not limited to SBO, Diverticulitis, Gastroenteritis Medical Records Medical records reviewed: Yes I reviewed the patient's medical records. Medical records narrative: See HPI and MDM Imaging Data Radiologic Study: Imaging: CT Scan Radiologist's impression: FINDINGS: The examination is limited due to patient motion artifact. ABDOMEN: Lung Bases: Normal where visualized. Liver: Normal density. No measurable mass. Portal, Superior Mesenteric, and Splenic Veins: Unremarkable. Gallbladder and Biliary Tract: No radiodense calculus or dilation. Pancreas: Normal density, no abnormal calcifications or inflammatory process. Spleen: Normal. Adrenals: No masses seen. Kidneys: Normal size, contour and axis. No radiodense stones or obstructive uropathy. No masses seen. Abdominal Aorta: Abdominal portion non-dilated. Atherosclerosis. Bowel: There is diverticulosis of the colon. There is focal bowel wall thickening and pericolonic inflammation at the junction of the descending colon and proximal sigmoid colon suspicious for acute diverticulitis. There is no evidence of bowel obstruction. Appendix is unremarkable. Peritoneal Cavity: No ascites, collection or mesenteric inflammatory response. No free air. Lymph Nodes: Within normal limits. Bones: Within normal limits for the patient's age. There is a left total hip replacement. Grade 1 spondylolisthesis of L4 on L5 is present. Soft Tissues: Unremarkable. PELVIS: Bladder: Symmetric distention, no gross wall thickening. Reproductive Organs: Unremarkable as visualized. Lymph Nodes: Within normal limits. Bones: Within normal limits for the patient's age. IMPRESSION: Findings of acute diverticulitis involving the junction of the descending and sigmoid colon. No abscess or free air. Lab Data Lab results reviewed: Yes I reviewed the patient's lab results. Labs: Laboratory Tests Range/Units 08/21/23 08/21/23 13:19 13:57 WBC (4.4-10.8) 10^3/uL 7.87 RBC (3.93-5.22) 10^6/uL 4.29 Hgb (11.2-15.7) g/dL 12.3 Hct (36.0-46.0) % 37.7 MCV (80-95) fL 88 MCH (27.0-33.0) pg 28.7 MCHC (32.0-36.0) % 32.6 RDW (11.7-14.6) % 13.9 Plt Count (130-400) 10^3/uL 317 MPV (8.0-11.0) fL 9.1 Immature Gran % 0.3 Neutrophils % 68.4 Lymphocytes % 23.8 Monocytes % 5.8 Eosinophils % 0.8 Basophils % 0.9 Nucleated RBC % (0.0-0.3) % 0.0 Absolute Neutrophils (1.2-6.7) 10^3/uL 5.39 Absolute Lymphocytes (1.2-3.4) 10^3/uL 1.87 Absolute Monocytes (0.1-0.8) 10^3/uL 0.46 Absolute Eosinophils (0.0-0.7) 10^3/uL 0.06 Absolute Basophils (0.0-0.2) 10^3/uL 0.07 Sodium (136-145) mmol/L 139 Potassium (3.5-5.1) mmol/L 4.1 Chloride (98-107) mmol/L 103 Carbon Dioxide (21.0-32.0) mmol/L 29.3 Anion Gap (3-11) mmol/L 6.7 BUN (7-18) mg/dL 11 Creatinine (0.55-1.02) mg/dL 0.9 Est GFR (CKD-EPI 2020) (mL/min/1.73m2) 67.50 Glucose (74-106) mg/dL 107 H Calcium (8.5-10.1) mg/dL 10.0 Magnesium (1.8-2.4) mg/dL 2.2 Total Bilirubin (0.2-1.0) mg/dL 0.4 AST (15-37) U/L 29 ALT (14-59) U/L 41 Alkaline Phosphatase (46-116) U/L 106 Total Protein (6.4-8.2) g/dL 7.6 Albumin (3.4-5.0) g/dL 3.5 Lipase (16-77) U/L 32 Urine Color (Yellow) Yellow Urine Clarity (Clear) Clear Urine pH (5-8) 6.0 Ur Specific [place] (1.005-1.025) 1.010 Urine Protein (Negative) mg/dL Negative Urine Ketones (Negative) mg/dL Negative Urine Blood (Negative) Negative Urine Nitrite (Negative) Negative Urine Bilirubin (Negative) Negative Urine Urobilinogen (Up to 0.2) mg/dL 0.2 Ur Leukocyte Esterase (Negative) Negative Urine Glucose (Negative) mg/dL Negative Core Measures Measure exclusions: not indicated HPI General Mode of arrival: ambulatory . Date/Time Provider Initiated Documentation: 08/21/23 12:58 . Limitations to Documentation: no limitations . Information obtained by: patient, family, RN notes reviewed and old records reviewed . HPI Narrative: 73-year-old female presents to the ER coming by her family with a chief complaint of left lower quadrant abdominal pain which worsened today. Patient was seen at urgent care prior to arrival and was sent here for further eval. Denies any nausea vomiting diarrhea no fever. She does have a past medical history of PE, SVT total hip replacement Related Data Home Medications Medication Instructions Recorded Confirmed acetaminophen 500 mg tablet (Mapap 1,000 mg (2 x 500 mg) PO TID #60 05/08/20 08/21/23 Extra Strength) tabs Al hyd-Mg tr-alg ac-sod bicarb 80 1 tab PO PRN PRN 11/16/20 08/21/23 mg-14.2 mg chewable tablet (Gaviscon) aluminum-mag hydroxide-simethicone See Rx Instructions .Route .COMPLEX 11/16/20 08/21/23 400 mg-400 mg-40 mg/5 mL oral susp (Mylanta Maximum Strength) ascorbic acid (vitamin C) 500 mg 500 mg PO DAILY 11/16/20 08/21/23 tablet (Vitamin C) calcium carbonate 200 mg-magnesium 1 tab PO DAILY 11/16/20 08/21/23 oxide,carbonate 100 mg chew tablet (Gareth-Mag) estradiol 0.01% (0.1 mg/gram) 1 g vaginal DAILY 11/16/20 08/21/23 vaginal cream (Estrace) hydrocortisone 2.5 % topical cream 1 applic topical BID PRN 11/16/20 08/21/23 vitamin B complex 1 tab PO DAILY 11/16/20 08/21/23 apixaban 5 mg tablet (Eliquis) 5 mg PO BID 06/12/23 08/21/23 cholecalciferol (vitamin D3) 25 25 mcg PO DAILY 06/12/23 08/21/23 mcg (1,000 unit) capsule meclizine 25 mg tablet 25 mg PO TID PRN 06/12/23 08/21/23 metoprolol tartrate 25 mg tablet 25 mg PO BID PRN 06/12/23 08/21/23 omeprazole 20 mg capsule,delayed 20 mg PO DAILY 06/12/23 08/21/23 release amoxicillin 875 mg-potassium 1 tab PO BID 10 days #20 tabs 08/21/23 clavulanate 125 mg tablet Previous Rx's Medication Instructions Recorded acetaminophen 500 mg tablet (Mapap 1,000 mg (2 x 500 mg) PO TID #60 05/08/20 Extra Strength) tabs amoxicillin 875 mg-potassium 1 tab PO BID 10 days #20 tabs 08/21/23 clavulanate 125 mg tablet Allergies Allergy/AdvReac Type Severity Reaction Status Date / Time perfume Allergy Intermediate Unverified 08/21/23 12:45 animal dander Allergy Mild Unverified 08/21/23 12:45 General Stated Complaint: Abd Prob JUSTYN: 3 Review of Systems All systems reviewed & are unremarkable except as noted in HPI and below Cardiovascular Cardiovascular: Denies chest pain and Denies dyspnea Respiratory Respiratory: Denies dyspnea, Denies stridor and Denies wheezing Gastrointestinal Gastrointestinal: Reports as per HPI, Reports abdominal pain, Reports change in stool character, Denies constipation, Denies diarrhea, Denies nausea and Denies vomiting Allergic/Immunologic Allergic/Immunologic: Denies wheezing PFSH All Active Problems (Updated 12/01/23 @ 15:34 by Jaye Estrella NP) Diverticulitis large intestine w/o perforation or abscess w/o bleeding (Acute) Restless leg syndrome (Acute) Osteoarthritis (Chronic) Hearing loss (Acute) Atrophic vaginitis (Acute) Recurrent pulmonary embolism (Acute) Anxiety and depression (Chronic) GERD (gastroesophageal reflux disease) (Chronic) Hip pain, left (Acute) Low back pain (Acute) Female bladder prolapse (Acute) Vitamin D deficiency (Acute) Vertigo (Acute) Headache (Acute) Bilateral pulmonary embolism (Acute) Acute deep vein thrombosis (DVT) of left lower extremity (Acute) Dizziness (Acute) Lumbar radiculopathy (Acute) Spondylolisthesis, lumbar region (Acute) Pulmonary embolism (Acute) Trochanteric bursitis, left hip (Chronic 07/22/17) Tarsal tunnel syndrome of right side (Acute 01/14/17) Primary osteoarthritis of left hip (Acute 07/22/17) Posterior tibial tendon dysfunction (PTTD) of both lower extremities (Acute 01/14/17) Pes planus of both feet (Acute 01/14/17) History of total left hip replacement (Chronic) DOS: 08/25/17 Dr. Lee Tendinitis of left rotator cuff (Acute) Sensorineural hearing loss of both ears (Chronic) Trigger finger, right ring finger (Acute) s/p surgical release 05/08/2020 Medical History Other specified disorders of tendon, right ankle and foot Pulmonary embolism SVT (supraventricular tachycardia) Surgical History H/O total knee replacement bilat S/P total hip arthroplasty Social History Smoking/Tobacco Use Status: Former Tobacco Use Smoking risk assessment performed?: Yes Alcohol Intake: current Alcohol Intake frequency: a few times a month Drug use: Never Substance use type: does not use Housing: house current occupation: retired - site admin at [employer] Current gender identity: female What type of physical activity do you participate in: regular exercise Do you feel safe at home: Yes Do you feel safe in your relationship?: Yes Exam Narrative Exam Narrative: Constitutional: Alert and oriented x3. Appears stated age. Overweight body habitus. Head: Normocephalic, no trauma. Eyes: Pupils PERRL, Red reflex noted, EOM's intact. Eyelids symmetrical without lesions, discharge, or swelling. ENT: External ear normal to inspection, no mastoid TTP, swelling, or erythema, no nasal discharge. Normal dentition, Chest: RRR, Normal S1, S2, distal pulses intact. Resp: Lungs clear to auscultation bilaterally, no wheezes, rales, or rhonchi. Abdomen: Soft, non-distended, hypoactive bowel sounds all 4 quads. Tender to palpation left lower quadrant Musculoskeletal: Normal gait, 5/5 strength to all four extremities. Skin: No suspicious rashes or lesions. Capillary refill less than 2 sec. Neurologic: Alert and oriented x 3. Motor: No deficits noted. Hematologic/Lymphatic: No ecchymosis, no lymphadenopathy. Course Vital Signs Vital signs: Vital Signs Temperature 36.4 C 08/21/23 12:41 Pulse 62 08/21/23 12:41 Respiratory Rate 20 08/21/23 12:41 Blood Pressure 148/95 H 08/21/23 12:41 Pulse Oximetry 99 08/21/23 12:41 Temperature 36.4 C 08/21/23 12:41 Temperature Source Oral 08/21/23 12:41 Pulse 62 08/21/23 12:41 Respiratory Rate 20 08/21/23 12:41 Blood Pressure 148/95 H 08/21/23 12:41 Blood Pressure Position Sitting 08/21/23 12:41 Pulse Oximetry 99 08/21/23 12:41 Oxygen Delivery Method Room Air 08/21/23 12:41 Oxygen Flow Rate 0 08/21/23 12:41 Pain Level 10 08/21/23 12:41 Critical Care Time Critical Care Time Critical Care Time: No
[2023-08-21 13:25] LABS: Abs Immature Grans 0.02 10^3/uL (0.0-0.06); Absolute Basophil Count 0.07 10^3/uL (0.0-0.2); Absolute Eosinophil Count 0.06 10^3/uL (0.0-0.7); Absolute Lymphocyte Count 1.87 10^3/uL (1.2-3.4); Absolute Monocyte Count 0.46 10^3/uL (0.1-0.8); Absolute Neutrophil Count 5.39 10^3/uL (1.2-6.7); Basophils % 0.9; Eosinophils % 0.8; HCT 37.7 % (36.0-46.0); HGB 12.3 g/dL (11.2-15.7); Immature Grans % 0.3; Lymphocytes % 23.8; MCH 28.7 pg (27.0-33.0); MCHC 32.6 % (32.0-36.0); MCV 88 fL (80-95); MPV 9.1 fL (8.0-11.0); Monocytes % 5.8; Neutrophils % 68.4; Platelet Count 317 10^3/uL (130-400); RBC 4.29 10^6/uL (3.93-5.22); RDW 13.9 % (11.7-14.6); RDW-SD 44.9 fL; WBC 7.87 10^3/uL (4.4-10.8)
[2023-08-21 13:47] LABS: ALT 41 U/L (14-59); AST 29 U/L (15-37); Albumin 3.5 g/dL (3.4-5.0); Alkaline Phosphatase 106 U/L (46-116); Anion Gap 6.7 mmol/L (3-11); BUN 11 mg/dL (7-18); Bilirubin, Total 0.4 mg/dL (0.2-1.0); CO2 29.3 mmol/L (21.0-32.0); CREATININE 0.9 mg/dL (0.55-1.02); Chloride 103 mmol/L (98-107); Glucose 107 mg/dL (74-106); Lipase 32 U/L (16-77); Magnesium 2.2 mg/dL (1.8-2.4); Potassium 4.1 mmol/L (3.5-5.1); Sodium 139 mmol/L (136-145); Total Protein 7.6 g/dL (6.4-8.2)
[2023-08-21 14:13] LABS: Bilirubin Negative (Negative); Blood Negative (Negative); Clarity Clear (Clear); Glucose Negative (Negative); Ketones Negative (Negative); Leukocyte Esterase Negative (Negative); Nitrite Negative (Negative); Urobilinogen 0.2 mg/dL (Up to 0.2)
[2023-08-21] MEDS: Normal Saline - Diluent 50 ML VIAL IJ (14:27)
[2023-08-21] MEDS: Omnipaque 350 MG/ML 100 ML BTL IJ (14:28)
[2023-08-21 15:49] VITALS: BP 180/89; PULSE 61; RESP 14; O2SAT 99
[2023-08-21] MEDS: Amoxicillin 875/Clav. 125 TAB PO (15:49)
[2023-08-21 15:53] VITALS: BP 196/88
== END 2023-08-21 16:02 | disposition home or self-care (01) ==
PROVIDERS: Emergency Provider Registered Nurse Emergency; PCP Family Medicine
DX: K57.32 Diverticulitis of large intestine without perforation or abscess without bleeding (principal); Z86.718 Personal history of other venous thrombosis and embolism; Z86.711 Personal history of pulmonary embolism; Z79.01 Long term (current) use of anticoagulants
CPT/HCPCS: 36415; 80053; 83690; 87040; 99285; 74177; 81003; 83735; 85025; 99284; J3490

== ENCOUNTER 2023-09-21 11:32 | Outpatient (REF) | payer MEDICARE, BC, SELFPAY | END 2023-09-21 11:33 | disposition home or self-care (01) | LOC: LBN 11:32 | PROVIDERS: PCP Family Medicine; Visit Provider Nurse Practitioner Family | DX: N30.01 Acute cystitis with hematuria (principal) | CPT/HCPCS: 87077; 87086; 87186 ==

== ENCOUNTER 2024-03-09 05:40 | Emergency (ER) | payer MEDICARE, BC, SELFPAY ==
[2024-03-09 05:45] VITALS: BP 149/88; PULSE 77; RESP 16; TEMP 36.6; O2SAT 97
--- NOTE | 2024-03-09 05:58 | ED.GENADUL_ITS ---
Discharge Plan Discharge Details Chief Complaint: Abd Prob Primary Care Provider: Tamara Gomez ED Provider: Randy Alcantara Home Meds and New Rx's Prescriptions: No Action ascorbic acid (vitamin C) [Vitamin C] 500 mg Tablet 500 mg PO DAILY vitamin B complex Tablet 1 tab PO DAILY hydrocortisone 2.5 % Cream 1 applic TOPICAL BID PRN estradiol [Estrace] 0.01 % (0.1 mg/gram) Cream 1 g VAGINAL DAILY alum-mag hydroxide-simeth [Mylanta Maximum Strength] 400-400-40 mg/5 mL Suspension See Rx Instructions .ROUTE .COMPLEX Rx Instructions: PRN As directed Gaviscon 80-14.2 mg Tablet,Chewable 1 tab PO PRN PRN Gareth-Mag 200 mg calcium- 100 mg Tablet,Chewable 1 tab PO DAILY psyllium husk [Metamucil] 0.4 gram capsule 0.4 g PO DAILY d-mannose 500 mg capsule 500 mg PO DAILY Eliquis 5 mg tablet 5 mg PO BID meclizine 25 mg tablet 25 mg PO TID PRN omeprazole 20 mg capsule,delayed release(DR/EC) 20 mg PO DAILY cholecalciferol (vitamin D3) 25 mcg (1,000 unit) capsule 25 mcg PO DAILY metoprolol tartrate 25 mg tablet 25 mg PO BID PRN Rx Instructions: 01/03/19 pt uses for SVT prn acetaminophen [Mapap Extra Strength] 500 MG tablet 1,000 mg PO TID Qty: 60 2RF HPI General Mode of arrival: ambulatory . Date/Time Provider Initiated Documentation: 03/09/24 05:57 . Limitations to Documentation: no limitations . Information obtained by: patient . HPI Narrative: Patient presents to ED with left lower quadrant abdominal pain radiating down towards the groin since Thursday. Pain has been worsening. She has been taking acetaminophen without relief. She has decreased appetite and nausea but no vomiting. She is having normal bowel movements. She denies any urinary symptoms. Denies any fever or chills. Does have prior history of diverticulitis. No prior abdominal surgeries. Related Data Home Medications Medication Instructions Recorded Confirmed acetaminophen 500 mg tablet (Mapap 1,000 mg (2 x 500 mg) PO TID #60 05/08/20 0 03/09/24 Extra Strength) tabs Al hyd-Mg tr-alg ac-sod bicarb 80 1 tab PO PRN PRN 11/16/20 03/09/24 mg-14.2 mg chewable tablet (Gaviscon) aluminum-mag hydroxide-simethicone See Rx Instructions .Route .COMPLEX 11/16/20 03/09/24 400 mg-400 mg-40 mg/5 mL oral susp (Mylanta Maximum Strength) ascorbic acid (vitamin C) 500 mg 500 mg PO DAILY 11/16/20 03/09/24 tablet (Vitamin C) calcium carbonate 200 mg-magnesium 1 tab PO DAILY 11/16/20 03/09/24 carbonate, oxide 100 mg chew tablet (Gareth-Mag) estradiol 0.01% (0.1 mg/gram) 1 g vaginal DAILY 11/16/20 03/09/24 vaginal cream (Estrace) hydrocortisone 2.5 % topical cream 1 applic topical BID PRN 11/16/20 03/09/24 vitamin B complex 1 tab PO DAILY 11/16/20 03/09/24 apixaban 5 mg tablet (Eliquis) 5 mg PO BID 06/12/23 03/09/24 cholecalciferol (vitamin D3) 25 25 mcg PO DAILY 06/12/23 03/09/24 mcg (1,000 unit) capsule meclizine 25 mg tablet 25 mg PO TID PRN 06/12/23 03/09/24 metoprolol tartrate 25 mg tablet 25 mg PO BID PRN 06/12/23 03/09/24 omeprazole 20 mg capsule,delayed 20 mg PO DAILY 06/12/23 03/09/24 release d-mannose 500 mg capsule 500 mg PO DAILY 12/31/23 03/09/24 psyllium husk 0.4 gram capsule 0.4 g PO DAILY 12/31/23 03/09/24 (Metamucil) Previous Rx's Medication Instructions Recorded acetaminophen 500 mg tablet (Mapap 1,000 mg (2 x 500 mg) PO TID #60 05/08/20 Extra Strength) tabs Allergies Allergy/AdvReac Type Severity Reaction Status Date / Time perfume Allergy Intermediate Skin Rash Unverified 03/09/24 07:20 animal dander Allergy Mild Skin Rash Unverified 03/09/24 07:20 General Stated Complaint: Abd Prob JUSTYN: 3 Review of Systems Narrative: Per HPI Exam Narrative Exam Narrative: Const: Obese female in NAD. VS per triage. HEENT: NC/AT. Normal facial exam. Neck: Supple. Trachea midline. Lungs: Normal respiratory effort. Lungs are clear. Cor: RRR without murmur. Good radial pulses. GI: Soft/ND. Tender without guarding/rebound LLQ. Back: No CVAT Neuro: A+O x 3. Normal speech, mentation, gait. Cranial nerves II - XII grossly intact. No gross motor or sensory deficit. Ext: No C/C/E. Course Vital Signs Vital signs: Vital Signs Temperature 97.9 F 03/09/24 05:45 Pulse 77 03/09/24 05:45 Respiratory Rate 16 03/09/24 05:45 Blood Pressure 149/88 H 03/09/24 05:45 Pulse Oximetry 97 03/09/24 05:45 Temperature 97.9 F 03/09/24 05:45 Temperature Source Tympanic 03/09/24 05:45 Pulse 77 03/09/24 05:45 Respiratory Rate 16 03/09/24 05:45 Blood Pressure 149/88 H 03/09/24 05:45 Blood Pressure Position Sitting 03/09/24 05:45 Pulse Oximetry 97 03/09/24 05:45 Oxygen Delivery Method Room Air 03/09/24 05:45 Oxygen Flow Rate 0 03/09/24 05:45 Pain Level 4 03/09/24 05:45 Medical Decision Making Patient presenting to ED with left lower quadrant abdominal pain and tenderness since Thursday with associated nausea and decreased appetite. Prior history of diverticulitis. Likely has recurrence. IV established fluids started. Laboratory studies obtained. CT scan ordered. Patient declines pain medicine at this time. She took acetaminophen at 2 AM. Laboratory studies with a white count of 11.4. Chemistries, liver function, lipase normal. Urinalysis with no evidence of infection and no hematuria. CT scan is completed and pending read by radiology. Patient signed out to oncoming ED physician Dr. Scott pending read. If positive for diverticulitis will start antibiotics and discharge. Lab Data Lab results reviewed: Yes I reviewed the patient's lab results. Quality:SDOH Health Related Social Needs: No Data to Display PFSH All Active Problems Other specified disorders of tendon, right ankle and foot (Acute) Excessive cerumen in right ear canal (Acute) Diverticulitis large intestine w/o perforation or abscess w/o bleeding (Acute) Restless leg syndrome (Acute) Osteoarthritis (Chronic) Hearing loss (Acute) Atrophic vaginitis (Acute) Recurrent pulmonary embolism (Acute) Anxiety and depression (Chronic) GERD (gastroesophageal reflux disease) (Chronic) Hip pain, left (Acute) Low back pain (Acute) Female bladder prolapse (Acute) Vitamin D deficiency (Acute) Vertigo (Acute) Headache (Acute) Bilateral pulmonary embolism (Acute) Acute deep vein thrombosis (DVT) of left lower extremity (Acute) Dizziness (Acute) Lumbar radiculopathy (Acute) Spondylolisthesis, lumbar region (Acute) Pulmonary embolism (Acute) Trochanteric bursitis, left hip (Chronic 07/22/17) Tarsal tunnel syndrome of right side (Acute 01/14/17) Primary osteoarthritis of left hip (Acute 07/22/17) Posterior tibial tendon dysfunction (PTTD) of both lower extremities (Acute 01/14/17) Pes planus of both feet (Acute 01/14/17) History of total left hip replacement (Chronic) DOS: 08/25/17 Dr. Lee Tendinitis of left rotator cuff (Acute) Sensorineural hearing loss of both ears (Chronic) Trigger finger, right ring finger (Acute) s/p surgical release 05/08/2020 Medical History Pulmonary embolism SVT (supraventricular tachycardia) Surgical History H/O total knee replacement bilat S/P total hip arthroplasty Social History Smoking/Tobacco Use Status: Former Tobacco Use Smoking risk assessment performed?: Yes Alcohol Intake: current Alcohol Intake frequency: a few times a month Drug use: Never Substance use type: does not use Housing: house current occupation: retired - site admin at [employer] Current gender identity: female What type of physical activity do you participate in: regular exercise Do you feel safe at home: Yes Do you feel safe in your relationship?: Yes
--- NOTE | 2024-03-09 06:00 | DI.CT_ITS ---
Exam(s) CT ABDOMEN PELVIS W EXAM: CT ABDOMEN PELVIS W CLINICAL HISTORY: LLQ pain/tenderness. TECHNIQUE: Imaging Protocol: Axial computed tomography images with coronal and sagittal reformatted images were created and reviewed CONTRAST MATERIAL: Intravenous: Omnipaque 350 Contrast volume:100 ml Oral: / no COMPARISON: CT CT ABDOMEN PELVIS W from 08/21/2023 FINDINGS: ABDOMEN and PELVIS: Lung Bases: No acute findings. Liver: Normal density. No suspicious mass. Gallbladder and biliary tract: No radiodense calculus. No biliary dilation. Pancreas: Normal density. No abnormal calcifications or inflammatory process. No evidence of mass. Spleen: Normal. Kidneys: Normal size, contour and axis. No radiodense stones. No obstructive uropathy. No suspicious masses seen. Adrenal glands: No masses seen. Vasculature: Abdominal aorta non-dilated. Soft tissues: Unremarkable. Bladder: No gross wall thickening. No calculi.No focal mass. Bowel: No obstruction. Diverticulosis noted throughout the colon, more prominent in the descending and sigmoid regions. There is wall thickening and inflammation involving the mid descending colon. No perforation or abscess. Appendix normal. Peritoneal cavity: No ascites. No focal collection. Bones: Left hip prosthesis. Degenerative changes in the lumbar spine. Reproductive organs: Unremarkable. Lymph nodes: No pathologically enlarged lymph nodes. IMPRESSION:: Uncomplicated diverticulitis of the descending colon. Findings called to Dr. Scott of the emergency department. RADIATION DOSE DELIVERED: 1,452.62mGy.cm Total DLP DATA REPOSITORY: All CT scans at this facility are submitted to the National Radiology Data Registry (NRDR) Dose Index Registry (DIR) with the [employer] [place] [employer] (ACR). RADIATION OPTIMIZATION: All CT scans at this facility use at least one of these dose optimization te chniques: automated exposure control; mA and/or kV adjustment per patient size (includes targeted exa ms where dose is matched to clinical indication); or iterative reconstruction.
[2024-03-09 06:28] LABS: Abs Immature Grans 0.03 10^3/uL (0.0-0.06); Absolute Basophil Count 0.07 10^3/uL (0.0-0.2); Absolute Eosinophil Count 0.16 10^3/uL (0.0-0.7); Absolute Lymphocyte Count 1.72 10^3/uL (1.2-3.4); Basophils % 0.6 %; Eosinophils % 1.4 %; HGB 13.3 g/dL (11.2-15.7); Immature Grans % 0.3 %; Lymphocytes % 15.1 %; MCH 28.4 pg (27.0-33.0); MCHC 31.7 % (32.0-36.0); MCV 90 fL (80-95); MPV 9.5 fL (8.0-11.0); Monocytes % 6.8 %; Neutrophils % 75.8 %; Platelet Count 319 10^3/uL (130-400); RBC 4.68 10^6/uL (3.93-5.22); RDW 13.7 % (11.7-14.6); RDW-SD 45.2 fL
[2024-03-09 06:29] LABS: Absolute Monocyte Count 0.78 10^3/uL (0.1-0.8); Absolute Neutrophil Count 8.64 10^3/uL (1.2-6.7)
[2024-03-09] MEDS: Lactated Ringers 1,000 ML 1000 ML IV (06:37)
[2024-03-09 06:42] LABS: Bilirubin Negative (Negative); Blood Small (Negative); Clarity Clear (Clear); Glucose Negative (Negative); Ketones Negative (Negative); Leukocyte Esterase Trace (Negative); Nitrite Negative (Negative); Specific Gravity 1.015 (1.005-1.025); Urobilinogen 0.2 mg/dL (Up to 0.2); pH 6.5 (5-8)
[2024-03-09 06:43] LABS: ALT 24 U/L (14-59); AST 17 U/L (15-37); Albumin 3.6 g/dL (3.4-5.0); Alkaline Phosphatase 95 U/L (46-116); Anion Gap 7.7 mmol/L (3-11); BUN 10 mg/dL (7-18); Bilirubin, Total 0.8 mg/dL (0.2-1.0); CO2 29.3 mmol/L (21.0-32.0); Calcium 9.1 mg/dL (8.5-10.1); Chloride 103 mmol/L (98-107); Estimated GFR 59.49 (mL/min/1.73m2); Glucose 108 mg/dL (74-106); Lipase 34 U/L (16-77); Potassium 4.4 mmol/L (3.5-5.1); Sodium 140 mmol/L (136-145); Total Protein 7.7 g/dL (6.4-8.2)
[2024-03-09 06:54] LABS: Epithelial Cells Moderate HPF (Negative); RBC 0-2 HPF (0-2)
[2024-03-09 06:55] LABS: Bacteria Rare HPF (Negative); C & S Indicated? No; Casts Negative LPF (Negative); Crystals Negative HPF (Negative); Mucus Negative (Negative); Other Cells Few Renal (Negative)
[2024-03-09] MEDS: Omnipaque 350 MG/ML 100 ML BTL IJ (07:01)
[2024-03-09 07:03] VITALS: BP 144/69; PULSE 74; RESP 16; TEMP 36.6; O2SAT 98
--- NOTE | 2024-03-09 07:17 | W.PCEDHO ---
Registration Status: REG ER Primary Language: Preferred Language: Slovenian ED Information & Data Chief Complaint Abd Prob 03/09/24 06:02 Chief Complaint Abd Prob 03/09/24 05:59 Triage Note left sided abdominal pain 03/09/24 05:45 that radiates to the groin area. patient reported that pain started on thursday, she was nauseous and cramps. Has been taking Tylenol but not helpful. Patient state sitting and lying down worsens symptoms and it is hard to get comfortable. patient state nothing seems to get it better. Patient reported that last August she had the same symptoms and was diagnosed with diverticulitis. State mornings seems to be worst. LBM was this morning. Took tylenol 500x2 at about 2am this morning Medical / Surgical History (Last Reviewed 03/09/24 @ 06:09 by Randy Alcantara MD) Pulmonary embolism SVT (supraventricular tachycardia) (Last Reviewed 03/09/24 @ 06:09 by Randy Alcantara MD) H/O total knee replacement S/P total hip arthroplasty Most Recent Vital Signs Temperature 36.6 C 03/09/24 07:03 Temperature Source Temporal Artery Scan 03/09/24 07:03 Pulse 74 03/09/24 07:03 Respiratory Rate 16 03/09/24 07:03 Respiratory Effort Normal, Non-Labored 03/09/24 06:02 Blood Pressure 144/69 H 03/09/24 07:03 Blood Pressure Position Sitting 03/09/24 07:03 Pulse Oximetry 98 03/09/24 07:03 Oxygen Delivery Method Room Air 03/09/24 07:03 Oxygen Flow Rate 0 03/09/24 05:45 End Tidal Co2 98 03/09/24 07:03 Pain Level 4 03/09/24 05:45 Allergies perfume Allergy (Intermediate, Unverified 08/21/23 12:45) Rash, whole body animal dander Allergy (Mild, Unverified 08/21/23 12:45) Rash Active Medications Generic Name Dose Route Start Last Admin Trade Name Freq PRN Reason Stop Dose Admin Iohexol 100 ml 03/09/24 07:15 03/09/24 07:01 Omnipaque 350 Mg/Ml 100 Ml Btl IJ 04/08/24 23:59 100 ml DIRECTED CAMRYN Administration IV IV Catheter Type [Right Saline Lock Antecubital] IV Catheter Gauge [Right 18 Antecubital] Diagnostics 03/09/24 03/09/24 Range/Units 06:38 06:15 WBC 11.40 H (4.4-10.8) 10^3/uL RBC 4.68 (3.93-5.22) 10^6/uL Hgb 13.3 (11.2-15.7) g/dL Hct 42.0 (36.0-46.0) % MCV 90 (80-95) fL MCH 28.4 (27.0-33.0) pg MCHC 31.7 L (32.0-36.0) % RDW 13.7 (11.7-14.6) % Plt Count 319 (130-400) 10^3/uL MPV 9.5 (8.0-11.0) fL Immature Gran % 0.3 % Neutrophils % 75.8 % Lymphocytes % 15.1 % Monocytes % 6.8 % Eosinophils % 1.4 % Basophils % 0.6 % Nucleated RBC % 0.0 (0.0-0.3) % Absolute Neutrophils 8.64 H (1.2-6.7) 10^3/uL Absolute Lymphocytes 1.72 (1.2-3.4) 10^3/uL Absolute Monocytes 0.78 (0.1-0.8) 10^3/uL Absolute Eosinophils 0.16 (0.0-0.7) 10^3/uL Absolute Basophils 0.07 (0.0-0.2) 10^3/uL Sodium 140 (136-145) mmol/L Potassium 4.4 (3.5-5.1) mmol/L Chloride 103 (98-107) mmol/L Carbon Dioxide 29.3 (21.0-32.0) mmol/L Anion Gap 7.7 (3-11) mmol/L BUN 10 (7-18) mg/dL Creatinine 1.0 (0.55-1.02) mg/dL Est GFR (CKD-EPI 2020) 59.49 (mL/min/1.73m2) Glucose 108 H (74-106) mg/dL Calcium 9.1 (8.5-10.1) mg/dL Total Bilirubin 0.8 (0.2-1.0) mg/dL AST 17 (15-37) U/L ALT 24 (14-59) U/L Alkaline Phosphatase 95 (46-116) U/L Total Protein 7.7 (6.4-8.2) g/dL Albumin 3.6 (3.4-5.0) g/dL Lipase 34 (16-77) U/L Urine Color Yellow (Yellow) Urine Clarity Clear (Clear) Urine pH 6.5 (5-8) Ur Specific [place] 1.015 (1.005-1.025) Urine Protein Negative (Neg-Trace) mg/dL Urine Ketones Negative (Negative) mg/dL Urine Blood Small H (Negative) Urine Nitrite Negative (Negative) Urine Bilirubin Negative (Negative) Urine Urobilinogen 0.2 (Up to 0.2) mg/dL Ur Leukocyte Esterase Trace H (Negative) Urine RBC 0-2 (0-2) HPF Urine WBC 3-5 (0-5) HPF Ur Epithelial Cells Moderate (Negative) HPF Urine Crystals Negative (Negative) HPF Urine Bacteria Rare (Negative) HPF Urine Casts Negative (Negative) LPF Urine Mucus Negative (Negative) Urine Other Few Renal (Negative) Ur Culture Indicated? No Urine Glucose Negative (Negative) mg/dL Intake and Output - 24 Hour Total 03/09/24 05:40 thru 03/09/24 05:45 Weight 92.986 kg Falls Risk Assessment History of Falls No History 03/09/24 07:03 Contributing Factors No Factors 03/09/24 07:03 Ambulatory Aids Independent 03/09/24 07:03 Tubes/Lines None 03/09/24 07:03 Gait Evaluation No gait disturbance 03/09/24 07:03 Fall Total Score 0 03/09/24 07:03 Level of Risk Standard/Low Risk 03/09/24 07:03 v v v v v v v v v Sending and/or Receiving Nurses: Please use comment section below to note any information pertinent to the patient hand-off not included above. Information / Comments: Report received from: SONIDO Cotter at 0717 hrs 03/09/24
[2024-03-09 07:47] VITALS: BP 145/69; PULSE 57; RESP 14; O2SAT 99
[2024-03-09] MEDS: AMPICILLIN/SULBACTAM 3 GM in Normal Saline 100 ML IVPB (08:08)
--- NOTE | 2024-03-09 09:23 | DI.VRAD_ITS ---
PROCEDURE INFORMATION: Exam: CT Abdomen And Pelvis With Contrast Exam date and time: 03/09/2024 7:00 AM Age: 73 years old Clinical indication: Abdominal pain; Generalized TECHNIQUE: Imaging protocol: Computed tomography of the abdomen and pelvis with contrast. Contrast material: OMNIPAQUE 350; Contrast volume: 100 ml; Contrast route: INTRAVENOUS (IV); COMPARISON: CT ABDOMEN PELVIS W 08/21/2023 (NO REPORT AVAILABLE) FINDINGS: Segmental wall thickening involves the descending colon. There are numerous diverticula in this region. Mild stranding is present in the adjacent fat. Findings are compatible with acute diverticulitis. No drainable abscess or free air identified. No evidence of bowel obstruction. Extremely severe diverticulosis involves the more distal sigmoid colon. No obvious acute abnormality of liver, spleen, pancreas, adrenal glands identified. No biliary duct dilation or gallbladder wall thickening. Minimal fullness of renal collecting systems, not likely of acute significance. Abdominal aorta is normal caliber. No acute abnormality identified within the pelvic cavity. Uterus is retroverted. Urinary bladder has smooth contour. The patient is status post left total hip arthroplasty. Chronic multilevel lumbar degenerative disc disease and facet DJD are present. Grade 1 anterolisthesis at the L4-L5 level and trace anterolisthesis at L3-L4. No obvious acute osseous abnormality. IMPRESSION: Acute diverticulitis involves the descending colon. No drainable abscess or bowel obstruction is seen. Dictated and Authenticated by: Loki Valencia MD. Ordering:TYRELL Padilla MD
--- NOTE | 2024-03-09 09:33 | W.EDPROG ---
Date of service: 03/09/24 Time of Service: 09:34 Medical Decision Making Patient was signed out to me by my colleague Dr. Willis. Please refer to his HPI, physical exam, assessment and plan. Signs and symptoms are concerning for diverticulitis. CT scan has returned and shows uncomplicated diverticulitis with no evidence of rupture. Laboratory workup is stable, no significant white count, electrolytes normal, renal function good. Patient's pain is controlled. She is on Eliquis, we will recommend continue Tylenol at home. Dose of Unasyn was given here, and will give Augmentin for home prescription. We will give a small bottle to go here. Recommend close follow-up. Discussed red flags for which to return. Repeat abdominal exam shows no evidence of an acute surgical abdomen. I have extensively reviewed the treatment plan and discharge instructions with the patient and their family. I have addressed all patient concerns at this time. The patient and family was made aware of what symptoms to monitor for that would warrant a return to the emergency department. Discussed the plan with the patient and family, they demonstrate verbal understanding and agreement with our assessment and plan at this time. The documentation in this chart was dictated using [employer] dictation software. Please excuse any dictation errors. I have extensively reviewed the treatment plan and discharge instructions with the patient. I have addressed all patient concerns at this time. The patient was made aware of what symptoms to monitor for that would warrant a return to the emergency department. Discussed the plan with the patient, they demonstrate verbal understanding and agreement with our assessment and plan at this time. The documentation in this chart was dictated using [employer] dictation software. Please excuse any dictation errors. FINDINGS: ABDOMEN and PELVIS: Lung Bases: No acute findings. Liver: Normal density. No suspicious mass. Gallbladder and biliary tract: No radiodense calculus. No biliary dilation. Pancreas: Normal density. No abnormal calcifications or inflammatory process. No evidence of mass. Spleen: Normal. Kidneys: Normal size, contour and axis. No radiodense stones. No obstructive uropathy. No suspicious masses seen. Adrenal glands: No masses seen. Vasculature: Abdominal aorta non-dilated. Soft tissues: Unremarkable. Bladder: No gross wall thickening. No calculi.No focal mass. Bowel: No obstruction. Diverticulosis noted throughout the colon, more prominent in the descending and sigmoid regions. There is wall thickening and inflammation involving the mid descending colon. No perforation or abscess. Appendix normal. Peritoneal cavity: No ascites. No focal collection. Bones: Left hip prosthesis. Degenerative changes in the lumbar spine. Reproductive organs: Unremarkable. Lymph nodes: No pathologically enlarged lymph nodes. IMPRESSION:: Uncomplicated diverticulitis of the descending colon. Quality:SDOH Health Related Social Needs: No Data to Display Sign Out Sign Out Data: Sign Out Comment: Pending formal read of CT scan and probable discharge on antibiotics if positive for diverticulitis. Last updated by Randy Alcantara MD at 03/09/24 07:41 Discharge Plan Disposition Patient Disposition: Home Condition: Good Discharge Details Clinical Impression: Diverticulitis Primary Care Provider: Tamara Gomez ED Provider: Raheel Scott Home Meds and New Rx's Prescriptions: New amoxicillin-pot clavulanate 875-125 mg tablet 1 tab PO BID Qty: 20 0RF No Action ascorbic acid (vitamin C) [Vitamin C] 500 mg Tablet 500 mg PO DAILY vitamin B complex Tablet 1 tab PO DAILY hydrocortisone 2.5 % Cream 1 applic TOPICAL BID PRN estradiol [Estrace] 0.01 % (0.1 mg/gram) Cream 1 g VAGINAL DAILY alum-mag hydroxide-simeth [Mylanta Maximum Strength] 400-400-40 mg/5 mL Suspension See Rx Instructions .ROUTE .COMPLEX Rx Instructions: PRN As directed Gaviscon 80-14.2 mg Tablet,Chewable 1 tab PO PRN PRN Gareth-Mag 200 mg calcium- 100 mg Tablet,Chewable 1 tab PO DAILY psyllium husk [Metamucil] 0.4 gram capsule 0.4 g PO DAILY d-mannose 500 mg capsule 500 mg PO DAILY Eliquis 5 mg tablet 5 mg PO BID meclizine 25 mg tablet 25 mg PO TID PRN omeprazole 20 mg capsule,delayed release(DR/EC) 20 mg PO DAILY cholecalciferol (vitamin D3) 25 mcg (1,000 unit) capsule 25 mcg PO DAILY metoprolol tartrate 25 mg tablet 25 mg PO BID PRN Rx Instructions: 01/03/19 pt uses for SVT prn acetaminophen [Mapap Extra Strength] 500 MG tablet 1,000 mg PO TID Qty: 60 2RF Discharge Instructions Instructions: Diverticulitis Additional Instructions: At this time you have evidence of diverticulitis. Please take the antibiotic as directed. Please take Tylenol for pain. If you notice any worsening of your symptoms, or any new symptoms such as vomiting, diarrhea, fever, chills, shortness of breath, chest pain, numbness, weakness, or fainting , please return immediately to the emergency department for reevaluation. Please follow up with your primary care provider as soon as possible for reassessment and reevaluation. As always, it was a pleasure participating in your medical care today. Referrals: Tamara Gomez [Primary Care Provider] -
[2024-03-09] MEDS: Amox. 875/Clav. 125, 2 TABS/BTL 1 TAB PO (09:56)
== END 2024-03-09 09:57 | disposition home or self-care (01) ==
PROVIDERS: Emergency Medicine; Emergency Provider Student in an Organized Health Care Education/Training Program; PCP Family Medicine
DX: R10.32 Left lower quadrant pain (principal); K57.92 Diverticulitis of intestine, part unspecified, without perforation or abscess without bleeding
CPT/HCPCS: 00123; 36415; 80053; 83690; 96361; 96365; 99285; 74177; 81003; 81015; 85025; 99283; J0295; J3490

== ENCOUNTER 2024-06-29 04:46 | Outpatient (CLI) | payer MEDICARE, BC, SELFPAY ==
[2024-06-29 08:35] LABS: HCT 37.8 % (36.0-46.0); HGB 12.5 g/dL (11.2-15.7); MCH 29.3 pg (27.0-33.0); MCHC 33.1 % (32.0-36.0); MCV 89 fL (80-95); Platelet Count 313 10^3/uL (130-400); RBC 4.26 10^6/uL (3.93-5.22); RDW 14.4 % (11.7-14.6); RDW-SD 46.9 fL; WBC 5.84 10^3/uL (4.4-10.8)
[2024-06-29 09:43] LABS: ALT 19 U/L (14-59); AST 16 U/L (15-37); Albumin 3.4 g/dL (3.4-5.0); Alkaline Phosphatase 81 U/L (46-116); Anion Gap 6.8 mmol/L (3-11); BUN 10 mg/dL (7-18); Bilirubin, Total 0.54 mg/dL (0.2-1.0); CO2 29.2 mmol/L (21.0-32.0); Calcium 9.1 mg/dL (8.5-10.1); Chloride 107 mmol/L (98-107); Estimated GFR 59.49 (mL/min/1.73m2); Glucose 100 mg/dL (74-106); Potassium 4.3 mmol/L (3.5-5.1); Sodium 143 mmol/L (136-145); Total Protein 7.2 g/dL (6.4-8.2); Vitamin D 25 Total 33.4 ng/mL (30-100)
== END 2024-06-29 04:47 | disposition home or self-care (01) ==
PROVIDERS: PCP Family Medicine; Visit Provider Family Medicine
DX: E55.9 Vitamin D deficiency, unspecified (principal); G25.81 Restless legs syndrome; R03.0 Elevated blood-pressure reading, without diagnosis of hypertension
CPT/HCPCS: 36415; 80053; 82306; 85027

== ENCOUNTER 2024-07-15 00:13 | Outpatient (CLI) | payer MEDICARE, BC, SELFPAY ==
--- NOTE | 2024-07-15 08:50 | DI.MAMMO_ITS ---
Exam(s) MAMMO SCREENING EXAM: MAMMO SCREENING CLINICAL HISTORY: SCREENING, Z12.31. TECHNIQUE: Bilateral full field digital CC and MLO mammographic images were obtained with 3D tomosyn thesis and utilizing computer aided detection (CAD). COMPARISON: Prior mammograms were reviewed. FINDINGS: There has been no significant change in the appearance and distribution of the fibroglandular tissue. Nodular density posteriorly in the right breast up against the chest wall is unchanged prior mammogra ms and consistent benign lymph node. There are no new spiculated masses nor malignant appearing microcalcification groups. There is no significant architectural distortion nor skin thickening-retraction. IMPRESSION: No radiographic evidence of malignancy. BI-RADS Category 1 - Negative Breast Density - Category B - Scattered areas of fibroglandular density Breast density Category C or D implies that the patient has dense breast tissue. Dense breast tissue can make it harder to find cancer on a mammogram. Dense breast tissue is also associated with an incr eased risk of breast cancer. This information about the result of the mammogram report was provided to the patient to raise their awareness. Use this report when you speak with the patient about their risks for breast cancer, which includes their family history. At that time, you may recommend additional screening tests (Ultrasoun d or MRI) as these tests may add significant information. A negative radiographic report should not delay biopsy if a dominant or clinically suspicious mass is present. Up to ten percent of cancers are not identified on mammography. A negative report may reinforce clinical impression. Adenosis and dense breasts may obscure an underlying neoplasm. False positive reports average 6 to 10%. Patient will receive a letter notifying them of these results.
== END 2024-07-15 00:33 ==
LOC: DI 00:14
PROVIDERS: PCP Family Medicine; Visit Provider Family Medicine
DX: Z12.31 Encounter for screening mammogram for malignant neoplasm of breast (principal)
CPT/HCPCS: 77063; 77067

== ENCOUNTER 2025-01-04 12:50 | Outpatient (REF) | payer MEDICARE, BC, SELFPAY ==
[2025-01-04 14:34] LABS: Abs Immature Grans 0.02 10^3/uL (0.0-0.06); Absolute Basophil Count 0.07 10^3/uL (0.0-0.2); Absolute Lymphocyte Count 1.69 10^3/uL (1.2-3.4); Absolute Monocyte Count 0.45 10^3/uL (0.1-0.8); Absolute Neutrophil Count 4.67 10^3/uL (1.2-6.7); Eosinophils % 1.4 %; HCT 41.2 % (36.0-46.0); HGB 13.6 g/dL (11.2-15.7); Immature Grans % 0.3 %; Lymphocytes % 24.1 %; MCH 29.2 pg (27.0-33.0); MCV 88 fL (80-95); MPV 9.8 fL (8.0-11.0); Monocytes % 6.4 %; Neutrophils % 66.8 %; Platelet Count 346 10^3/uL (130-400); RBC 4.66 10^6/uL (3.93-5.22); RDW 13.7 % (11.7-14.6); RDW-SD 44.3 fL
[2025-01-04 14:55] LABS: Hemoglobin A1C 5.4 % (<5.7)
[2025-01-04 15:05] LABS: ALT 28 U/L (14-59); AST 21 U/L (15-37); Alkaline Phosphatase 84 U/L (46-116); Anion Gap 7.6 mmol/L (3-11); BUN 10 mg/dL (7-18); Bilirubin, Total 0.3 mg/dL (0.2-1.0); CO2 29.4 mmol/L (21.0-32.0); Calcium 10.1 mg/dL (8.5-10.1); Chloride 102 mmol/L (98-107); Estimated GFR 59.12 (mL/min/1.73m2); FREE T4 0.94 ng/dL (0.76-1.46); Glucose 98 mg/dL (74-106); Potassium 4.7 mmol/L (3.5-5.1); Sodium 139 mmol/L (136-145); TSH 2.42 uIU/mL (0.36-3.74); Total Protein 7.4 g/dL (6.4-8.2)
[2025-01-04 22:19] LABS: T3,Free 3.4 pg/mL (2.8-5.3)
== END 2025-01-04 12:51 | disposition home or self-care (01) ==
LOC: NCHCN 12:50
PROVIDERS: PCP Family Medicine; Visit Provider Family Medicine
DX: R53.83 Other fatigue (principal)
CPT/HCPCS: 80053; 83036; 84439; 84443; 84481; 85025

== ENCOUNTER 2025-02-25 16:33 | Emergency (ER) | payer MEDICARE, BC, SELFPAY ==
[2025-02-25] VITALS (38 sets, daily range): BP systolic 120–178; BP diastolic 57–95; PULSE 75–97; RESP 15–30; TEMP 37.4; O2SAT 93–100
--- NOTE | 2025-02-25 16:45 | DI.CT_ITS ---
Exam(s) CT ABDOMEN PELVIS W EXAM: CT ABDOMEN PELVIS W CLINICAL HISTORY: RUQ pain and fever TECHNIQUE: Imaging Protocol: Axial computed tomography images with coronal and sagittal reformatted images were created and reviewed. CONTRAST MATERIAL: Intravenous: Omnipaque 350 Contrast volume:75 mL Oral: No COMPARISON: CT CT ABDOMEN PELVIS W from 03/09/2024 FINDINGS: ABDOMEN: Lung Bases: Small fat containing bilateral diaphragmatic hernia. Liver: Normal density. No suspicious hepatic masses are seen. Portal, Superior Mesenteric, and Splenic Veins: Unremarkable. Gallbladder and Biliary Tract: No radiodense calculus or dilation. Pancreas: Normal density, no abnormal calcifications or inflammatory process. Spleen: Normal. Adrenals: No masses seen. Kidneys: There is inflammatory stranding seen around the left kidney. There is also heterogeneous en hancement of the left kidney which is delayed relative to the right. The findings are suspicious for pyelonephritis. No definite renal stones are appreciated on the left. The right kidney shows no ev idence of nephrolithiasis or hydronephrosis. No masses seen. Abdominal Aorta: Abdominal portion non-dilated. Atherosclerotic calcification is present. Bowel: There is diverticulosis of the colon without evidence of acute diverticulitis. There is no ev idence of bowel obstruction or bowel wall thickening. Appendix is unremarkable. Peritoneal Cavity: No ascites, collection or mesenteric inflammatory response. No free air. Lymph Nodes: Within normal limits. Bones: There is anterolisthesis of L4 on L5. There is marked central spinal canal stenosis at L4-L5. Age-appropriate degenerative changes are seen in the lumbar spine. Note is made of a left total hi p arthroplasty. There is a mild right convex lumbar scoliosis. Soft Tissues: Unremarkable. PELVIS: Bladder: Symmetric distention, no gross wall thickening. Reproductive Organs: Unremarkable as visualized. Lymph Nodes: Within normal limits. Bones: Within normal limits for the patient's age. IMPRESSION: 1. Variable enhancement of the left kidney with perinephric stranding suspicious for left pyelonephri tis. No abscess is seen. 2. No evidence of cholelithiasis or biliary ductal dilatation. 3. Colonic diverticulosis without evidence of acute diverticulitis. 4. No evidence of right nephrolithiasis or hydronephrosis. 5. The preliminary [facility] report was reviewed. RADIATION DOSE DELIVERED: 658.46mGy.cm Total DLP DATA REPOSITORY: All CT scans at this facility are submitted to the National Radiology Data Registry (NRDR) Dose Index Registry (DIR) with the [employer] (ACR). RADIATION OPTIMIZATION: All CT scans at this facility use at least one of these dose optimization te chniques: automated exposure control; mA and/or kV adjustment per patient size (includes targeted exa ms where dose is matched to clinical indication); or iterative reconstruction.
--- NOTE | 2025-02-25 16:53 | DI.RAD_ITS ---
Exam(s) XR CHEST 2V PA LATERAL EXAM: XR CHEST 2V PA LATERAL CLINICAL HISTORY: ruq pain TECHNIQUE: 2D digital imaging was performed of the chest. Two images were obtained. PA and lateral views were obtained. COMPARISON: CR XR CHEST 2V PA LATERAL from 06/26/2023 FINDINGS: MEDIASTINUM: Normal. HEART: Mild cardiomegaly. There is tortuosity of the thoracic aorta. PULMONARY VASCULATURE: Normal. LUNGS: No focal consolidating infiltrates. PLEURAL SPACE: No pleural effusion or pneumothorax. BONE:Within normal limits for the patient's age. OTHER FINDINGS:Normal. IMPRESSION: 1. No acute pulmonary findings. 2. The preliminary [facility] report was reviewed. DATA REPOSITORY: RADIATION DOSE DELIVERED:
[2025-02-25 17:22] LABS: COVID-19 PCR Negative (Negative); Influenza A PCR Negative (Negative); Influenza B PCR Negative (Negative); RSV PCR Negative (Negative)
[2025-02-25 17:24] LABS: Source Nasopharynx
[2025-02-25] MEDS: cefTRIAXone 2 GM/50 ML BAG IVPB (17:40)
[2025-02-25 18:13] LABS: Lactate 1.4 mmol/L (<or=2.0)
[2025-02-25 18:17] LABS: Abs Immature Grans 0.05 10^3/uL (0.0-0.06); Absolute Basophil Count 0.07 10^3/uL (0.0-0.2); Absolute Lymphocyte Count 1.28 10^3/uL (1.2-3.4); Absolute Neutrophil Count 10.84 10^3/uL (1.2-6.7); Basophils % 0.5 %; Eosinophils % 0.2 %; HGB 13.3 g/dL (11.2-15.7); Immature Grans % 0.4 %; Lymphocytes % 9.8 %; MCH 28.7 pg (27.0-33.0); MCHC 32.4 % (32.0-36.0); MCV 89 fL (80-95); MPV 9.7 fL (8.0-11.0); Monocytes % 6.1 %; Platelet Count 308 10^3/uL (130-400); RBC 4.63 10^6/uL (3.93-5.22); RDW 13.8 % (11.7-14.6); RDW-SD 44.8 fL; WBC 13.06 10^3/uL (4.4-10.8)
[2025-02-25 18:18] LABS: Absolute Eosinophil Count 0.03 10^3/uL (0.0-0.7)
[2025-02-25] MEDS: Acetaminophen 500 MG TAB PO ×2 (18:49→21:22)
[2025-02-25] MEDS: Normal Saline 1,000 ML 1000 ML IV (18:50)
[2025-02-25 19:11] LABS: ALT 78 U/L (14-59); AST 64 U/L (15-37); Albumin 3.1 g/dL (3.4-5.0); Alkaline Phosphatase 113 U/L (46-116); Anion Gap 8.1 mmol/L (3-11); BUN 12 mg/dL (7-18); Bilirubin, Total 0.7 mg/dL (0.2-1.0); CO2 27.9 mmol/L (21.0-32.0); CREATININE 0.9 mg/dL (0.55-1.02); Calcium 8.9 mg/dL (8.5-10.1); Chloride 100 mmol/L (98-107); Estimated GFR 67.08 (mL/min/1.73m2); Glucose 116 mg/dL (74-106); Lipase 23 U/L (<78); Sodium 136 mmol/L (136-145); Total Protein 7.1 g/dL (6.4-8.2)
[2025-02-25 19:15] LABS: Bilirubin Negative (Negative); Blood Small (Negative); Clarity Clear (Clear); Glucose Negative (Negative); Ketones Trace mg/dL (Negative); Leukocyte Esterase Small (Negative); Nitrite Positive (Negative); Urobilinogen 0.2 mg/dL (Up to 0.2)
[2025-02-25 19:27] LABS: Bacteria Moderate HPF (Negative); C & S Indicated? Yes; Casts Negative LPF (Negative); Crystals Negative HPF (Negative); Epithelial Cells Few HPF (Negative); Mucus Negative (Negative); WBC 20-50 HPF (0-5)
[2025-02-25] MEDS: Omnipaque 350 MG/ML 100 ML BTL IJ (19:53)
[2025-02-25] MEDS: Normal Saline - Diluent 50 ML VIAL IJ (19:54)
--- NOTE | 2025-02-25 21:27 | DI.[facility]_ITS ---
PROCEDURE INFORMATION: Exam: CT Abdomen And Pelvis With Contrast Exam date and time: 02/25/2025 7:50 PM Age: 74 years old Clinical indication: Other: Ruq pain and fever TECHNIQUE: Imaging protocol: Computed tomography of the abdomen and pelvis with contrast. Contrast material: OMNIPAQUE 350; Contrast volume: 75 ml; Contrast route: INTRAVENOUS (IV); COMPARISON: CT ABDOMEN PELVIS W 03/09/2024 7:00 AM FINDINGS: Lungs: Mild atelectasis in the lung bases. Small right and very small left fatty Bochdalek's hernia in the bilateral posterior basilar distribution with no evidence of associated bowel herniation or solid organ herniation. Heart: Heart size upper limits of normal. Esophagus: The visualized distal esophagus is largely contracted without gross abnormality. Liver: Normal contour. Subcentimeter probable cyst in the left hepatic lobe which does not require further evaluation. No intrahepatic biliary ductal dilatation. Gallbladder and biliary ducts: Normal. No calcified stones. No ductal dilation. Pancreas: Moderate-severe pancreatic atrophy without acute abnormality. No pancreatic ductal dilatation. Spleen: Normal. No splenomegaly. Adrenal glands: Normal. No adrenal mass. Kidneys and ureters: Moderate asymmetric left-sided perinephric stranding with small poorly marginated areas of cortical under enhancement in the lateral mid and upper pole distribution concerning for pyelonephritis. No renal abscess. No hydronephrosis or hydroureter. There are few small peripelvic cysts present bilaterally. No gross urolithiasis although early contrast excretion limits sensitivity for small stones. Left-sided retroperitoneal and intrapelvic phleboliths noted, unchanged from prior imaging. Stomach and bowel: The stomach is largely contracted. The small bowel is nondilated with no gross abnormality. No acute colonic abnormalities. Moderate distal colonic diverticulosis without diverticulitis. Appendix: The appendix is normal in caliber and demonstrates no evidence of appendicitis. Intraperitoneal space: No peritoneal free fluid or air. Vasculature: No acute vascular abnormalities. Mild calcific atherosclerosis. Lymph nodes: No adenopathy. Urinary bladder: Unremarkable as visualized. Reproductive: Unremarkable as visualized. Bones/joints: No acute osseous abnormalities. Left hip arthroplasty without gross hardware complication. Mild rightward convexity lumbar scoliosis with multilevel moderate-severe disc osteoarthritic changes. Grade 1 anterolisthesis L3-L4 and L4-L5 with severe canal stenosis L4-L5. Soft tissues: No acute soft tissue abnormalities. IMPRESSION: 1. Findings concerning for left-sided pyelonephritis. No renal abscess or hydronephrosis. 2. Additional nonemergent findings detailed above. Dictated and Authenticated by: Rickey Jacobson MD. Orderin Solomon Desai MD
--- NOTE | 2025-02-25 21:29 | DI.[facility]_ITS ---
PROCEDURE INFORMATION: Exam: XR Chest Exam date and time: 02/25/2025 8:20 PM Age: 74 years old Clinical indication: Other: Ruq pain TECHNIQUE: Imaging protocol: Radiologic exam of the chest. Views: 2 views. COMPARISON: CR XR CHEST 2V PA LATERAL 06/26/2023 9:22 AM FINDINGS: Lungs: Normal pulmonary expansion. Question mild central vascular congestion. No gross pulmonary infiltrates or edema pattern. Incidental fat pads at the right cardiophrenic angle and cardiac apex. Pleural spaces: No pleural effusion. No pneumothorax. Heart/Mediastinum: Heart size upper limits of normal. No tracheal/mediastinal shift. Vasculature: Moderate aortic ectasia/tortuosity. Bones/joints: No acute osseous abnormalities are identified. IMPRESSION: No acute thoracic process. Dictated and Authenticated by: Rickey Jacobson MD. Orderin Solomon Desai MD
[2025-02-25] MEDS: Cefpodoxime 200 MG TAB 400 MG PO (22:08)
--- NOTE | 2025-02-25 23:05 | ED.GENADUL_ITS ---
Discharge Plan Disposition Patient Disposition: Home Condition: Stable Discharge Details Clinical Impression: Acute UTI Primary Care Provider: Tamara Gomez ED Provider: Giselle Carbajal Home Meds and New Rx's Prescriptions: New cefpodoxime 200 mg tablet 200 mg PO BID Qty: 20 0RF Rx Instructions: must administer with a meal/food Continued ascorbic acid (vitamin C) [Vitamin C] 500 mg Tablet 500 mg PO DAILY vitamin B complex Tablet 1 tab PO DAILY hydrocortisone 2.5 % Cream 1 applic TOPICAL BID PRN estradiol [Estrace] 0.01 % (0.1 mg/gram) Cream 1 g VAGINAL DAILY alum-mag hydroxide-simeth [Mylanta Maximum Strength] 400-400-40 mg/5 mL Suspension See Rx Instructions .ROUTE .COMPLEX Rx Instructions: PRN As directed Gaviscon 80-14.2 mg Tablet,Chewable 1 tab PO PRN PRN Gareth-Mag 200 mg calcium- 100 mg Tablet,Chewable 1 tab PO DAILY psyllium husk [Metamucil] 0.4 gram capsule 0.4 g PO DAILY d-mannose 500 mg capsule 500 mg PO DAILY Eliquis 5 mg tablet 5 mg PO BID meclizine 25 mg tablet 25 mg PO TID PRN cholecalciferol (vitamin D3) 25 mcg (1,000 unit) capsule 25 mcg PO DAILY metoprolol tartrate 25 mg tablet 25 mg PO BID PRN Rx Instructions: 01/03/19 pt uses for SVT prn acetaminophen [Mapap Extra Strength] 500 MG tablet 1,000 mg PO TID Qty: 60 2RF amoxicillin-pot clavulanate 875-125 mg tablet 1 tab PO BID Qty: 20 0RF Held omeprazole 20 mg capsule,delayed release(DR/EC) 20 mg PO DAILY Hold Instructions: Resume on 03/07/25. Discharge Instructions Instructions: Urinary Tract Infection, Adult ED Additional Instructions: Take the cefpodoxime as prescribed Follow-up with your urologist Tylenol and make sure drink at least 88 ounce glasses of water daily should you have vomiting be unable to tolerate the antibiotic, or become progressively more weak please return immediately for reassessment recommendation for 24 to 48-hour recheck Referrals: Tamara Gomez [Primary Care Provider] - 1 day HPI General Date/Time Provider Initiated Documentation: 02/25/25 16:43 . HPI Narrative: 74-year-old female with recurrent UTIs, DVT/PE on Eliquis, hypertension, and hyperlipidemia presents with flank pain, fever, and chills since yesterday. Reports fatigue and chills, no nausea, vomiting, or urinary symptoms. Alert, oriented, ambulatory with steady gait, appears pale. Related Data Home Medications ?Medication ?Instructions ?Recorded ?Confirmed acetaminophen 500 mg tablet (Mapap 1,000 mg (2 x 500 mg) PO TID #60 05/08/20 02/25/25 Extra Strength) tabs Al hyd-Mg tr-alg ac-sod bicarb 80 1 tab PO PRN PRN 11/16/20 02/25/25 mg-14.2 mg chewable tablet (Gaviscon) aluminum-mag hydroxide-simethicone See Rx Instructions .Route .COMPLEX 11/16/20 02/25/25 400 mg-400 mg-40 mg/5 mL oral susp (Mylanta Maximum Strength) ascorbic acid (vitamin C) 500 mg 500 mg PO DAILY 11/16/20 02/25/25 tablet (Vitamin C) calcium 200 mg (as 1 tab PO DAILY 11/16/20 02/25/25 carbonate)-magnesium 100 mg chewable tablet (Gareth-Mag) estradiol 0.01% (0.1 mg/gram) 1 g vaginal DAILY 11/16/20 02/25/25 vaginal cream (Estrace) hydrocortisone 2.5 % topical cream 1 applic topical BID PRN 11/16/20 02/25/25 vitamin B complex 1 tab PO DAILY 11/16/20 02/25/25 apixaban 5 mg tablet (Eliquis) 5 mg PO BID 06/12/23 02/25/25 cholecalciferol (vitamin D3) 25 25 mcg PO DAILY 06/12/23 02/25/25 mcg (1,000 unit) capsule meclizine 25 mg tablet 25 mg PO TID PRN 06/12/23 02/25/25 metoprolol tartrate 25 mg tablet 25 mg PO BID PRN 06/12/23 02/25/25 omeprazole 20 mg capsule,delayed 20 mg PO DAILY 06/12/23 02/25/25 release d-mannose 500 mg capsule 500 mg PO DAILY 12/31/23 02/25/25 psyllium husk 0.4 gram capsule 0.4 g PO DAILY 12/31/23 02/25/25 (Metamucil) amoxicillin 875 mg-potassium 1 tab PO BID #20 tabs 03/09/24 02/25/25 clavulanate 125 mg tablet cefpodoxime 200 mg tablet 200 mg PO BID #20 tabs 02/25/25 Previous Rx's ?Medication ?Instructions ?Recorded acetaminophen 500 mg tablet (Mapap 1,000 mg (2 x 500 mg) PO TID #60 05/08/20 Extra Strength) tabs amoxicillin 875 mg-potassium 1 tab PO BID #20 tabs 03/09/24 clavulanate 125 mg tablet cefpodoxime 200 mg tablet 200 mg PO BID #20 tabs 02/25/25 Allergies Allergy/AdvReac Type Severity Reaction Status Date / Time perfume Allergy Intermediate Skin Rash Verified 02/25/25 16:40 animal dander Allergy Mild Skin Rash Verified 02/25/25 16:40 General Stated Complaint: GenMedical JUSTYN: 3 Exam Narrative Exam Narrative: General Appearance: Alert and oriented. Vital signs: Vitals stable. HEENT: Within normal limits. Respiratory: Within normal limits. Gastrointestinal: Abdominal exam benign. Skin: No rashes or lesions. Neurological: Normal. Course Vital Signs Vital signs: Vital Signs Temperature 37.4 C 02/25/25 16:36 Pulse 80 02/25/25 16:36 Respiratory Rate 15 02/25/25 16:36 Blood Pressure 161/95 H 02/25/25 16:36 Pulse Oximetry 94 02/25/25 16:36 Temperature 37.4 C 02/25/25 16:40 Temperature Source Oral 02/25/25 16:36 Pulse 76 02/25/25 22:12 Pulse 76 02/25/25 22:01 Respiratory Rate 20 02/25/25 22:12 Respiratory Effort Normal, Non-Labored 02/25/25 18:53 Respiratory Depth Normal 02/25/25 18:53 Respiratory Pattern Normal 02/25/25 18:53 Blood Pressure 128/60 02/25/25 22:12 Blood Pressure Mean 82 02/25/25 22:01 Blood Pressure Position Sitting 02/25/25 16:36 Pulse Oximetry 94 02/25/25 22:12 Oxygen Delivery Method Room Air 02/25/25 16:36 Oxygen Flow Rate 0 02/25/25 16:36 Pain Level 7 02/25/25 21:22 Lab/Test Results Lab/Test Results: 02/25/25 18:55 Urine - Reflex from Ua Urine Culture - Pending 02/25/25 18:40 Blood Blood Culture - Pending 02/25/25 18:01 Blood Blood Culture - Pending Laboratory Tests Range/Units 02/25/25 02/25/25 02/25/25 16:39 18:01 18:40 WBC (4.4-10.8) 10^3/uL 13.06 H RBC (3.93-5.22) 10^6/uL 4.63 Hgb (11.2-15.7) g/dL 13.3 Hct (36.0-46.0) % 41.0 MCV (80-95) fL 89 MCH (27.0-33.0) pg 28.7 MCHC (32.0-36.0) % 32.4 RDW (11.7-14.6) % 13.8 Plt Count (130-400) 10^3/uL 308 MPV (8.0-11.0) fL 9.7 Immature Gran % % 0.4 Neutrophils % % 83.0 Lymphocytes % % 9.8 Monocytes % % 6.1 Eosinophils % % 0.2 Basophils % % 0.5 Nucleated RBC % (0.0-0.3) % 0.0 Absolute Neutrophils (1.2-6.7) 10^3/uL 10.84 H Absolute Lymphocytes (1.2-3.4) 10^3/uL 1.28 Absolute Monocytes (0.1-0.8) 10^3/uL 0.80 Absolute Eosinophils (0.0-0.7) 10^3/uL 0.03 Absolute Basophils (0.0-0.2) 10^3/uL 0.07 VBG Lactate (<or=2.0) mmol/L 1.4 Sodium Cancelled 136 Potassium Cancelled 4.0 Chloride Cancelled 100 Carbon Dioxide Cancelled 27.9 Anion Gap Cancelled 8.1 BUN Cancelled 12 Creatinine Cancelled 0.9 Est GFR (CKD-EPI 2020) Cancelled 67.08 Glucose Cancelled 116 H Calcium Cancelled 8.9 Total Bilirubin Cancelled 0.7 AST Cancelled 64 H ALT Cancelled 78 H Alkaline Phosphatase Cancelled 113 Total Protein Cancelled 7.1 Albumin Cancelled 3.1 L Lipase Cancelled 23 Urine Color (Yellow) Urine Clarity (Clear) Urine pH (5-8) Ur Specific [place] (1.005-1.025) Urine Protein (Neg-Trace) mg/dL Urine Ketones (Negative) mg/dL Urine Blood (Negative) Urine Nitrite (Negative) Urine Bilirubin (Negative) Urine Urobilinogen (Up to 0.2) mg/dL Ur Leukocyte Esterase (Negative) Urine RBC (0-2) HPF Urine WBC (0-5) HPF Ur Epithelial Cells (Negative) HPF Urine Crystals (Negative) HPF Urine Bacteria (Negative) HPF Urine Casts (Negative) LPF Urine Mucus (Negative) Ur Culture Indicated? Urine Glucose (Negative) mg/dL COVID-19 Source Nasopharynx SARS-CoV-2 (PCR) (Negative) Negative Influenza Type A (PCR) (Negative) Negative Influenza Type B (PCR) (Negative) Negative RSV (PCR) (Negative) Negative Range/Units 02/25/25 18:55 WBC (4.4-10.8) 10^3/uL RBC (3.93-5.22) 10^6/uL Hgb (11.2-15.7) g/dL Hct (36.0-46.0) % MCV (80-95) fL MCH (27.0-33.0) pg MCHC (32.0-36.0) % RDW (11.7-14.6) % Plt Count (130-400) 10^3/uL MPV (8.0-11.0) fL Immature Gran % % Neutrophils % % Lymphocytes % % Monocytes % % Eosinophils % % Basophils % % Nucleated RBC % (0.0-0.3) % Absolute Neutrophils (1.2-6.7) 10^3/uL Absolute Lymphocytes (1.2-3.4) 10^3/uL Absolute Monocytes (0.1-0.8) 10^3/uL Absolute Eosinophils (0.0-0.7) 10^3/uL Absolute Basophils (0.0-0.2) 10^3/uL VBG Lactate (<or=2.0) mmol/L Sodium Potassium Chloride Carbon Dioxide Anion Gap BUN Creatinine Est GFR (CKD-EPI 2020) Glucose Calcium Total Bilirubin AST ALT Alkaline Phosphatase Total Protein Albumin Lipase Urine Color (Yellow) Yellow Urine Clarity (Clear) Clear Urine pH (5-8) 6.0 Ur Specific [place] (1.005-1.025) 1.020 Urine Protein (Neg-Trace) mg/dL 30 H Urine Ketones (Negative) mg/dL Trace H Urine Blood (Negative) Small H Urine Nitrite (Negative) Positive H Urine Bilirubin (Negative) Negative Urine Urobilinogen (Up to 0.2) mg/dL 0.2 Ur Leukocyte Esterase (Negative) Small H Urine RBC (0-2) HPF 5-10 H Urine WBC (0-5) HPF 20-50 H Ur Epithelial Cells (Negative) HPF Few Urine Crystals (Negative) HPF Negative Urine Bacteria (Negative) HPF Moderate Urine Casts (Negative) LPF Negative Urine Mucus (Negative) Negative Ur Culture Indicated? Yes Urine Glucose (Negative) mg/dL Negative COVID-19 Source SARS-CoV-2 (PCR) (Negative) Influenza Type A (PCR) (Negative) Influenza Type B (PCR) (Negative) RSV (PCR) (Negative) Medical Decision Making Leukocytosis at 13,000. Elevated transaminases. Nitrate positive with 20-50 WBCs, suspect UTI with moderate bacteria. CT abdomen/pelvis: no nephrolithiasis, hydronephrosis, or obstructive uropathy. Initial Assessment: 74-year-old female with history of recurrent UTIs, DVT/PE on Eliquis, hypertension, hyperlipidemia, presents with flank pain, fever, and chills since yesterday. Denies nausea or vomiting. Alert and oriented, ambul atory with steady gait, appears pale. Abdominal exam benign, no rashes or lesions. Vital signs stable. ED Course: - Leukocytosis at 13,000 - Elevation in transaminases, recheck needed - Nitrate positive with 20-50 WBCs, suspect UTI with moderate bacteria - CT abdomen/pelvis: no nephrolithiasis, hydronephrosis, or obstructive uropathy - Blood cultures pending - Given ceftriaxone in ED - Prescription for cefpodoxime for home for 10 days - Reviewed prior urine culture: E. coli positive, almost pansensitive Final Assessment: Patient with pyelonephritis, treated with ceftriaxone in ED and prescribed cefpodoxime for 10 days. Blood cultures pending. No evidence of nephrolithiasis, hydronephrosis, or obstructive uropathy on CT. Patient chose discharge over admission. Clinical Impression: - Pyelonephritis Disposition: - Discharge: Patient discharged home in the care of her - Follow-Up: Follow-up with urologist Patient Education: Return precautions reviewed in detail. Advised to return if new or worsening complaints. MDM Components Evaluation: - Number of Differential Diagnoses or Management Options: Pyelonephritis - Amount and Complexity of Data Reviewed: Leukocytosis, elevated transaminases, nitrate positive with 20-50 WBCs, CT abdomen/pelvis results, prior urine culture (E. coli positive, almost pansensitive), blood cultures pending - Risk of Complication and Morbidity or Mortality: Moderate risk due to pyelonephritis in a 74-year-old female with multiple comorbidities Quality:[facility] Health Related Social Needs: No Data to Display PFSH All Active Problems (Updated 02/25/25 @ 21:57 by TIMOTHY Flores) Acute UTI (Acute) Other specified disorders of tendon, right ankle and foot (Acute) Excessive cerumen in right ear canal (Acute) Diverticulitis large intestine w/o perforation or abscess w/o bleeding (Acute) Restless leg syndrome (Acute) Osteoarthritis (Chronic) Hearing loss (Acute) Atrophic vaginitis (Acute) Recurrent pulmonary embolism (Acute) Anxiety and depression (Chronic) GERD (gastroesophageal reflux disease) (Chronic) Hip pain, left (Acute) Low back pain (Acute) Female bladder prolapse (Acute) Vitamin D deficiency (Acute) Vertigo (Acute) Headache (Acute) Bilateral pulmonary embolism (Acute) Acute deep vein thrombosis (DVT) of left lower extremity (Acute) Dizziness (Acute) Lumbar radiculopathy (Acute) Spondylolisthesis, lumbar region (Acute) Pulmonary embolism (Acute) Trochanteric bursitis, left hip (Chronic 07/22/17) Tarsal tunnel syndrome of right side (Acute 01/14/17) Primary osteoarthritis of left hip (Acute 07/22/17) Posterior tibial tendon dysfunction (PTTD) of both lower extremities (Acute 01/14/17) Pes planus of both feet (Acute 01/14/17) History of total left hip replacement (Chronic) DOS: 08/25/17 Dr. 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
--- NOTE | 2025-02-26 07:46 | NUR.NOTE ---
0744 lab called stating patient blood culture: 1 aerobic bottle positive gram negative rods. Result given to Dr. Marie. Nursing Note:
--- NOTE | 2025-02-26 07:51 | W.ED.FU ---
Date of service: 02/26/25 Time of Service: 07:51 Follow Up Plan: patient has a blood culture growing gram negative rods. Called and spoke with the patient and instructed her to return to the ER and she understood these instructions
[2025-02-27 11:16] LABS: Lyme Ab w Rflx to Lyme Confirm Negative (Negative)
[2025-02-28 23:58] LABS: Anaplasma phagocytophilum Negative (Negative); B. miyamotoi PCR Negative (Negative); Babesia divergens/MO-1 Negative (Negative); Babesia duncani Negative (Negative); Babesia microti Negative (Negative); Ehrlichia chaffeensis Negative (Negative); Ehrlichia ewingii/canis Negative (Negative); Ehrlichia muris eauclairensis Negative (Negative)
== END 2025-02-25 22:12 | disposition home or self-care (01) ==
PROVIDERS: Emergency Provider Physician Assistant; PCP Family Medicine
DX: N10 Acute pyelonephritis (principal); I10 Essential (primary) hypertension; E78.5 Hyperlipidemia, unspecified; Z86.718 Personal history of other venous thrombosis and embolism; Z86.711 Personal history of pulmonary embolism; Z79.01 Long term (current) use of anticoagulants; Z87.891 Personal history of nicotine dependence
CPT/HCPCS: 80053; 83690; 87040; 87077; 87637; 87798; 96361; 96365; 99285; 71046; 74177; 81003; 81015; 83605; 85025; 86618; 87086; 87186; J0696; J3490

== ENCOUNTER 2025-02-26 08:20 | Inpatient (IN) | payer MEDICARE, BC, SELFPAY ==
[2025-02-26 08:22] VITALS: BP 116/73; PULSE 73; RESP 16; TEMP 36.7; O2SAT 93
--- NOTE | 2025-02-26 08:40 | ED.GENADUL_ITS ---
Discharge Plan Disposition Patient Disposition: Admit to [facility] Condition: Serious Discharge Details Chief Complaint: Fever Clinical Impression: Acute pyelonephritis, Positive blood culture Primary Care Provider: Tamara Gomez ED Provider: Velasquez Marie Home Meds and New Rx's Prescriptions: No Action ascorbic acid (vitamin C) [Vitamin C] 500 mg Tablet 500 mg PO DAILY vitamin B complex Tablet 1 tab PO DAILY hydrocortisone 2.5 % Cream 1 applic TOPICAL BID PRN estradiol [Estrace] 0.01 % (0.1 mg/gram) Cream 1 g VAGINAL DAILY alum-mag hydroxide-simeth [Mylanta Maximum Strength] 400-400-40 mg/5 mL Suspension See Rx Instructions .ROUTE .COMPLEX Rx Instructions: PRN As directed Gaviscon 80-14.2 mg Tablet,Chewable 1 tab PO PRN PRN Gareth-Mag 200 mg calcium- 100 mg Tablet,Chewable 1 tab PO DAILY psyllium husk [Metamucil] 0.4 gram capsule 0.4 g PO DAILY d-mannose 500 mg capsule 500 mg PO DAILY Eliquis 5 mg tablet 5 mg PO BID meclizine 25 mg tablet 25 mg PO TID PRN omeprazole 20 mg capsule,delayed release(DR/EC) 20 mg PO DAILY cholecalciferol (vitamin D3) 25 mcg (1,000 unit) capsule 25 mcg PO DAILY metoprolol tartrate 25 mg tablet 25 mg PO DAILY Rx Instructions: 01/03/19 pt uses for SVT prn cefpodoxime 200 mg tablet 200 mg PO BID Qty: 20 0RF Rx Instructions: must administer with a meal/food acetaminophen [Mapap Extra Strength] 500 MG tablet 1,000 mg PO TID Qty: 60 2RF HPI General Mode of arrival: ambulatory . Date/Time Provider Initiated Documentation: 02/26/25 08:21 . Limitations to Documentation: no limitations . Information obtained by: patient . History of Present Illness 74 year old F presents to the emergency department with the chief complaint of positive blood culture, described as moderate, Patient started experiencing this day(s) (1) and it has been constant. No relieving factors improve symptom(s), No exacerbating factors reported . Patient notes denies fever/chills and shortness of breath. Patient did receive the following treatments prior to arrival, none Related Data Home Medications ?Medication ?Instructions ?Recorded ?Confirmed acetaminophen 500 mg tablet (Mapap 1,000 mg (2 x 500 mg) PO TID #60 05/08/20 02/26/25 Extra Strength) tabs Al hyd-Mg tr-alg ac-sod bicarb 80 1 tab PO PRN PRN 11/16/20 02/26/25 mg-14.2 mg chewable tablet (Gaviscon) aluminum-mag hydroxide-simethicone See Rx Instructions .Route .COMPLEX 11/16/20 02/26/25 400 mg-400 mg-40 mg/5 mL oral susp (Mylanta Maximum Strength) ascorbic acid (vitamin C) 500 mg 500 mg PO DAILY 11/16/20 02/26/25 tablet (Vitamin C) calcium 200 mg (as 1 tab PO DAILY 11/16/20 02/26/25 carbonate)-magnesium 100 mg chewable tablet (Gareth-Mag) estradiol 0.01% (0.1 mg/gram) 1 g vaginal DAILY 11/16/20 02/26/25 vaginal cream (Estrace) hydrocortisone 2.5 % topical cream 1 applic topical BID PRN 11/16/20 02/26/25 vitamin B complex 1 tab PO DAILY 11/16/20 02/26/25 apixaban 5 mg tablet (Eliquis) 5 mg PO BID 06/12/23 02/26/25 cholecalciferol (vitamin D3) 25 25 mcg PO DAILY 06/12/23 02/26/25 mcg (1,000 unit) capsule meclizine 25 mg tablet 25 mg PO TID PRN 06/12/23 02/26/25 metoprolol tartrate 25 mg tablet 25 mg PO DAILY 06/12/23 02/26/25 omeprazole 20 mg capsule,delayed 20 mg PO DAILY 06/12/23 02/26/25 release d-mannose 500 mg capsule 500 mg PO DAILY 12/31/23 02/26/25 psyllium husk 0.4 gram capsule 0.4 g PO DAILY 12/31/23 02/26/25 (Metamucil) cefpodoxime 200 mg tablet 200 mg PO BID #20 tabs 02/25/25 02/26/25 Previous Rx's ?Medication ?Instructions ?Recorded acetaminophen 500 mg tablet (Mapap 1,000 mg (2 x 500 mg) PO TID #60 05/08/20 Extra Strength) tabs cefpodoxime 200 mg tablet 200 mg PO BID #20 tabs 02/25/25 Allergies Allergy/AdvReac Type Severity Reaction Status Date / Time perfume Allergy Intermediate Skin Rash Verified 02/26/25 08:26 animal dander Allergy Mild Skin Rash Verified 02/26/25 08:26 General Stated Complaint: Fever JUSTYN: 3 Review of Systems All systems reviewed & are unremarkable except as noted in HPI and below Constitutional Constitutional: Reports chills, Reports fever(s) and Denies weakness Cardiovascular Cardiovascular: Denies chest pain and Denies dyspnea Respiratory Respiratory: Denies cough and Denies dyspnea Gastrointestinal Gastrointestinal: Denies abdominal pain, Denies nausea and Denies vomiting Musculoskeletal Musculoskeletal: Reports back pain Neurologic Neurologic: Denies weakness Psychiatric Psychiatric: Denies depression Exam Const General: no acute distress Orientation: alert HENMT Head: normal to inspection Ears: external ears normal General nose exam: external nose normal Mouth: moist mucous membranes Eyes General: appearance normal, both eyes and all related structures Neck Neck: normal visual inspection Resp Effort & Inspection: normal respiratory effort and able to speak in complete sentences Cardio Rate: regular rate GI Palpation: soft and nontender Skin General skin exam: no rashes or lesions noted Neuro General: patient alert and patient oriented x3 Extrem General: normal to inspection Psych Mental Status: mental status grossly normal Course Vital Signs Vital signs: Vital Signs Temperature 36.7 C 02/26/25 08:22 Pulse 73 02/26/25 08:22 Respiratory Rate 16 02/26/25 08:22 Blood Pressure 116/73 02/26/25 08:22 Pulse Oximetry 93 02/26/25 08:22 Temperature 36.7 C 02/26/25 08:22 Temperature Source Oral 02/26/25 08:22 Pulse 73 02/26/25 08:22 Respiratory Rate 16 02/26/25 08:22 Blood Pressure 116/73 02/26/25 08:22 Blood Pressure Position Sitting 02/26/25 08:22 Pulse Oximetry 93 02/26/25 08:22 Oxygen Delivery Method Room Air 02/26/25 08:22 Oxygen Flow Rate 0 02/26/25 08:22 Lab/Test Results Lab/Test Results: 02/26/25 08:21 Blood Blood Culture - Pending 02/26/25 08:21 Blood Blood Culture - Pending Medical Decision Making 74-year-old female comes in after her blood culture came back positive and had a phone call by myself to return. She was seen yesterday and had labs and imaging of her abdomen pelvis done which showed left pyelonephritis and she chose to go home and to be admitted. She still having subjective fevers and chills diaphoresis. She has mild left flank pain. She has no vomiting or severe abdominal pain. No chest pain. Hemodynamically stable on arrival. Given the positive blood culture I discussed with the hospitalist and will plan for admission. She got IV ceftriaxone 2 g around 8:00 last night so we will resume another dose tonight. Patient is in agreement with admission. Medical Records Medical records reviewed: Yes I reviewed the patient's medical records. Lab Data Lab results reviewed: Yes I reviewed the patient's lab results. Quality:SDOH Health Related Social Needs: No Data to Display [facility] All Active Problems (Updated 02/26/25 @ 09:06 by Velasquez Marie MD) Positive blood culture (Acute) Acute pyelonephritis (Acute) Acute UTI (Acute) Other specified disorders of tendon, right ankle and foot (Acute) Excessive cerumen in right ear canal (Acute) Diverticulitis large intestine w/o perforation or abscess w/o bleeding (Acute) Restless leg syndrome (Acute) Osteoarthritis (Chronic) Hearing loss (Acute) Atrophic vaginitis (Acute) Recurrent pulmonary embolism (Acute) Anxiety and depression (Chronic) GERD (gastroesophageal reflux disease) (Chronic) Hip pain, left (Acute) Low back pain (Acute) Female bladder prolapse (Acute) Vitamin D deficiency (Acute) Vertigo (Acute) Headache (Acute) Bilateral pulmonary embolism (Acute) Acute deep vein thrombosis (DVT) of left lower extremity (Acute) Dizziness (Acute) Lumbar radiculopathy (Acute) Spondylolisthesis, lumbar region (Acute) Pulmonary embolism (Acute) Trochanteric bursitis, left hip (Chronic 07/22/17) Tarsal tunnel syndrome of right side (Acute 01/14/17) Primary osteoarthritis of left hip (Acute 07/22/17) Posterior tibial tendon dysfunction (PTTD) of both lower extremities (Acute 01/14/17) Pes planus of both feet (Acute 01/14/17) History of total left hip replacement (Chronic) DOS: 08/25/17 Dr. Lee Tendinitis of left rotator cuff (Acute) Sensorineural hearing loss of both ears (Chronic) Trigger finger, right ring finger (Acute) s/p surgical release 05/08/2020 Medical History Pulmonary embolism SVT (supraventricular tachycardia) Surgical History H/O total knee replacement bilat S/P total hip arthroplasty Social History Smoking/Tobacco Use Status: Former Tobacco Use Smoking risk assessment performed?: Yes Alcohol Intake: current Alcohol Intake frequency: a few times a month Alcohol type: beer and wine Drug use: Never Substance use type: does not use Housing: house current occupation: retired - site admin at [employer] Current gender identity: female What type of physical activity do you participate in: regular exercise Do you feel safe at home: Yes Do you feel safe in your relationship?: Yes PAWSS Have you Been Recently Intoxicated or Drunk Within the Last 30 days?: No Have you Ever Experienced Previous Episodes of Alcohol Withdrawal?: No Have you ever Experienced Withdrawal Seizures?: No Have you ever Experienced Delirium Tremens(DT)s?: No Have you ever undergone Alcohol Rehabilitation Treatment (i.e, inpt ot outpatient treatment programs)?: No Have you ever Experienced Blackouts?: No Have you ever Combined Alcohol with other Downers within the last 90 days?: No Have you ever Combined Alcohol with any other Substance of Abuse during the last 90 days?: No Positive Blood Alcohol level on Presentation? [PCS.BAL]: No Evidence of Increased Autonomic Activity (i.e. HR>120, tremor, sweating, agitation, nausea)?: No Result: 0
[2025-02-26 08:55] LABS: Lactate 0.8 mmol/L (<or=2.0)
[2025-02-26 08:56] LABS: Abs Immature Grans 0.04 10^3/uL (0.0-0.06); Absolute Basophil Count 0.05 10^3/uL (0.0-0.2); Absolute Lymphocyte Count 1.09 10^3/uL (1.2-3.4); Absolute Monocyte Count 0.98 10^3/uL (0.1-0.8); Absolute Neutrophil Count 10.13 10^3/uL (1.2-6.7); Basophils % 0.4 %; HCT 36.2 % (36.0-46.0); Immature Grans % 0.3 %; Lymphocytes % 8.9 %; MCH 28.9 pg (27.0-33.0); MCHC 33.1 % (32.0-36.0); MCV 87 fL (80-95); MPV 9.5 fL (8.0-11.0); Neutrophils % 82.4 %; Platelet Count 274 10^3/uL (130-400); RBC 4.15 10^6/uL (3.93-5.22); RDW 13.8 % (11.7-14.6); RDW-SD 44.1 fL; WBC 12.29 10^3/uL (4.4-10.8)
[2025-02-26 09:13] LABS: Bilirubin Negative (Negative); Blood Moderate (Negative); Clarity Clear (Clear); Glucose Negative (Negative); Ketones 15 mg/dL (Negative); Leukocyte Esterase Trace (Negative); Nitrite Negative (Negative); Specific Gravity 1.015 (1.005-1.025); Urobilinogen 0.2 mg/dL (Up to 0.2)
[2025-02-26 09:22] LABS: ALT 80 U/L (14-59); AST 63 U/L (15-37); Albumin 3.2 g/dL (3.4-5.0); Alkaline Phosphatase 127 U/L (46-116); Anion Gap 9.2 mmol/L (3-11); BUN 10 mg/dL (7-18); Bilirubin, Total 0.5 mg/dL (0.2-1.0); CO2 25.8 mmol/L (21.0-32.0); Calcium 8.9 mg/dL (8.5-10.1); Chloride 99 mmol/L (98-107); Estimated GFR 59.12 (mL/min/1.73m2); Glucose 137 mg/dL (74-106); Magnesium 1.9 mg/dL (1.8-2.4); Potassium 3.7 mmol/L (3.5-5.1); Sodium 134 mmol/L (136-145); Total Protein 7.6 g/dL (6.4-8.2)
[2025-02-26 09:26] LABS: Bacteria Moderate HPF (Negative); C & S Indicated? C&S Done As Ordered; Casts Negative LPF (Negative); Crystals Negative HPF (Negative); Epithelial Cells Few HPF (Negative); Mucus Negative (Negative); WBC 20-50 HPF (0-5)
--- NOTE | 2025-02-26 09:34 | W.PC.ACHO ---
Registration Status: Primary Language: Preferred Language: ED Information & Data Chief Complaint Fever 02/26/25 08:42 Triage Note seen here yesterday for 02/26/25 08:22 fever. declined admission. called back today for + BC. took Abx @ 0630. tylenol @ 0730. Medical / Surgical History (Last Reviewed 03/09/24 @ 06:09 by Randy Alcantara MD) Pulmonary embolism SVT (supraventricular tachycardia) (Last Reviewed 03/09/24 @ 06:09 by Randy Alcantara MD) H/O total knee replacement S/P total hip arthroplasty Most Recent Vital Signs Temperature 36.7 C 02/26/25 08:22 Temperature Source Oral 02/26/25 08:22 Pulse 73 02/26/25 08:22 Respiratory Rate 16 02/26/25 08:22 Blood Pressure 116/73 02/26/25 08:22 Blood Pressure Position Sitting 02/26/25 08:22 Pulse Oximetry 93 02/26/25 08:22 Oxygen Delivery Method Room Air 02/26/25 08:22 Oxygen Flow Rate 0 02/26/25 08:22 Allergies perfume Allergy (Intermediate, Verified 02/26/25 08:26) Skin Rash Rash, whole body animal dander Allergy (Mild, Verified 02/26/25 08:26) Skin Rash Rash IV IV Catheter Type [Right Peripheral IV Antecubital] IV Catheter Gauge [Right 18 Antecubital] Diet Orders Category Date Time Status Regular/Normal [DIET] Nutrition 02/26/25 Lunch Active Diagnostics 02/26/25 02/26/25 02/26/25 Range/Units 08:50 08:40 08:21 WBC 12.29 H (4.4-10.8) 10^3/uL RBC 4.15 (3.93-5.22) 10^6/uL Hgb 12.0 (11.2-15.7) g/dL Hct 36.2 (36.0-46.0) % MCV 87 (80-95) fL MCH 28.9 (27.0-33.0) pg MCHC 33.1 (32.0-36.0) % RDW 13.8 (11.7-14.6) % Plt Count 274 (130-400) 10^3/uL MPV 9.5 (8.0-11.0) fL Immature Gran % 0.3 % Neutrophils % 82.4 % Lymphocytes % 8.9 % Monocytes % 8.0 % Eosinophils % 0.0 % Basophils % 0.4 % Nucleated RBC % 0.0 (0.0-0.3) % Absolute Neutrophils 10.13 H (1.2-6.7) 10^3/uL Absolute Lymphocytes 1.09 L (1.2-3.4) 10^3/uL Absolute Monocytes 0.98 H (0.1-0.8) 10^3/uL Absolute Eosinophils 0.00 (0.0-0.7) 10^3/uL Absolute Basophils 0.05 (0.0-0.2) 10^3/uL VBG Lactate 0.8 (<or=2.0) mmol/L Sodium 134 L (136-145) mmol/L Potassium 3.7 (3.5-5.1) mmol/L Chloride 99 (98-107) mmol/L Carbon Dioxide 25.8 (21.0-32.0) mmol/L Anion Gap 9.2 (3-11) mmol/L BUN 10 (7-18) mg/dL Creatinine 1.0 (0.55-1.02) mg/dL Est GFR (CKD-EPI 2020) 59.12 (mL/min/1.73m2) Glucose 137 H (74-106) mg/dL Calcium 8.9 (8.5-10.1) mg/dL Magnesium 1.9 (1.8-2.4) mg/dL Total Bilirubin 0.5 (0.2-1.0) mg/dL AST 63 H (15-37) U/L ALT 80 H (14-59) U/L Alkaline Phosphatase 127 H (46-116) U/L Total Protein 7.6 (6.4-8.2) g/dL Albumin 3.2 L (3.4-5.0) g/dL Procalcitonin Cancelled Urine Color Yellow (Yellow) Urine Clarity Clear (Clear) Urine pH 6.0 (5-8) Ur Specific [place] 1.015 (1.005-1.025) Urine Protein 30 H (Neg-Trace) mg/dL Urine Ketones 15 H (Negative) mg/dL Urine Blood Moderate H (Negative) Urine Nitrite Negative (Negative) Urine Bilirubin Negative (Negative) Urine Urobilinogen 0.2 (Up to 0.2) mg/dL Ur Leukocyte Esterase Trace H (Negative) Urine RBC 5-10 H (0-2) HPF Urine WBC 20-50 H (0-5) HPF Ur Epithelial Cells Few (Negative) HPF Urine Crystals Negative (Negative) HPF Urine Bacteria Moderate (Negative) HPF Urine Casts Negative (Negative) LPF Urine Mucus Negative (Negative) Ur Culture Indicated? C&S Done As Ordered Urine Glucose Negative (Negative) mg/dL 02/26/25 09:04 Blood Culture - Pending Blood 02/26/25 08:50 Urine Culture - Pending Urine - Bladder Aspirate 02/26/25 08:40 Blood Culture - Pending Blood Intake and Output - 24 Hour Total 02/26/25 08:20 thru 02/26/25 08:22 Weight 90.718 kg Falls Risk Assessment Contributing Factors No Factors 02/26/25 08:28 Fall Total Score 0 02/26/25 08:28 Level of Risk Standard/Low Risk 02/26/25 08:28 v v v v v v v v v Sending and/or Receiving Nurses: Please use comment section below to note any information pertinent to the patient hand-off not included above. Information / Comments: recieved report and all questions answered. Pt going to room 231 Report received from: Shannon Fry @ [phone]
[2025-02-26 09:41] VITALS: BP 121/69; PULSE 69; RESP 17; TEMP 36.8; O2SAT 94
--- NOTE | 2025-02-26 11:48 | PHA.REVIEW2 ---
Pharmacy Admission Review Admission Clinical Review Admission Pharmacy Review: perfume Allergy (Intermediate, Verified 02/26/25 08:26) Skin Rash animal dander Allergy (Mild, Verified 02/26/25 08:26) Skin Rash Resuscitation Status Full Code Height 5 ft 4 in Weight 90.718 kg Pharmacy Admission Review Renal Dosing Renal Dosing: BUN 10 mg/dL (7-18) 02/26/25 08:40 Creatinine 1.0 mg/dL (0.55-1.02) 02/26/25 08:40 Medications needing adjustments: Reviewed (CrCl 53.85 mL/min) List of meds needing interventions: Current medications are okay Anticoagulation Anticoagulation: Hgb 12.0 g/dL (11.2-15.7) 02/26/25 08:40 Hct 36.2 % (36.0-46.0) 02/26/25 08:40 Plt Count 274 10^3/uL (130-400) 02/26/25 08:40 Creatinine 1.0 mg/dL (0.55-1.02) 02/26/25 08:40 DVT Prophylaxis: Reviewed Medications: Apixaban (5mg BID) Relevant Labs Relevant Labs: Sodium 134 mmol/L (136-145) L 02/26/25 08:40 Potassium 3.7 mmol/L (3.5-5.1) 02/26/25 08:40 Chloride 99 mmol/L (98-107) 02/26/25 08:40 Magnesium 1.9 mg/dL (1.8-2.4) 02/26/25 08:40 Electrolytes, C-Reactive P, ESR: Reviewed (AST/ALT 63/80) Cardiac Review BP, HR, EF%: Reviewed (BP and HR WNL) QTc Review QTc: Reviewed (422 from 03/13/23 - most recent EKG on file) IV to PO Switch IV Medications: Reviewed (ceftriaxone) Home Meds Home Med List reviewed: Intervened Relevent Home Meds Not ordered & why?: Vitamin C, calcium carbonate, magnesium, cefpodoxime (has order for ceftriaxone), metoprolol and vitamin B Asked provider about metoprolol, waiting to hear back Changed D-mannose and estradiol cream to patients own orders (non-formulary). Reached out to nurse to see if these could be brought in for the patient - waiting to hear back. Current Meds Current Medication Order Review: Reviewed Pharmacy Antibiotic Review Relevant Labs: Relevant Labs 02/26/25 08:21 Procalcitonin Cancelled WBC 12.29 10^3/uL (4.4-10.8) H 02/26/25 08:40 Procalcitonin Cancelled 02/26/25 08:21 Temperature 36.8 C Temperature 36.7 C Pharmacy Antibiotic Activity: C/S review and Reviewed, no change Comments: Patient is on ceftriaxone, day 1, for pyelonephritis/bacteremia. Initial blood culture from ED on 02/25 came back with gram negative rods. Repeat blood cultures and urine cultures are pending.
--- NOTE | 2025-02-26 11:54 | HPE_ITS ---
Date of service: 02/26/25 Time of Service: 11:54 Assessment and Plan Assessment and plan (1) Sepsis without septic shock: Status: Acute Assessment and plan: Meets criteria for sepsis without septic shock with heart rate above 90 respiratory rate above 20 elevated white blood cell count Lactic acid negative Blood cultures growing gram-negative rods ID and sensitivities pending repeat blood cultures pending (2) Acute pyelonephritis: Status: Acute Assessment and plan: Continue ceftriaxone while awaiting culture ID and sensitivities CT scan with no nephrolithiasis hydronephrosis or signs of obstructive uropathy (3) Bacteremia: Status: Acute Assessment and plan: Blood cultures growing gram-negative rods anticipate same bacteria growing in urine but cultures are still pending Repeat blood cultures also pending Anticipate 10 to 14 days antibiotic course from first negative blood culture date (4) Pulmonary embolism: Status: Chronic Assessment and plan: History of, Continue apixaban (5) GERD (gastroesophageal reflux disease): Status: Chronic Assessment and plan: Continue omeprazole (6) Contraindication to deep vein thrombosis prophylaxis: Status: Acute Assessment and plan: Is fully anticoagulated on apixaban discussed with DR Monzon History of Present Illness Narrative: This is a 74-year-old female patient past medical history significant for frequent urinary tract infections followed by urology at [facility] who presented yesterday to the emergency department with signs of urinary tract infection. Her workup in the emergency department was consistent with pyelonephritis she received a dose of IV ceftriaxone and was discharged home on cefpodoxime. She did have a CT of the abdomen and pelvis that showed no nephrolithiasis hydronephrosis or obstructive uropathy. She was discharged to home and blood cultures did return positive for gram negative rods. Phone call was placed to update her and she was reporting increased malaise back pain and having poor p.o. intake. She was brought back in for reevaluation and is being admitted to the hospitalist services for IV antibiotics and further monitoring and management. Repeat blood cultures have been obtained. Hemodynamically she has remained stable although did meet sepsis criteria with heart rate greater than 90 and respiratory rate greater than 20 and elevated white blood cell count. Her lactic acid was negative and her blood pressure has been stable. [facility] All Active Problems (Updated 02/26/25 @ 13:08 by Dorothy Yen NP) Contraindication to deep vein thrombosis prophylaxis (Acute) Pulmonary embolism (Chronic) Sepsis without septic shock (Acute) Bacteremia (Acute) Positive blood culture (Acute) Acute pyelonephritis (Acute) Acute UTI (Acute) Other specified disorders of tendon, right ankle and foot (Acute) Excessive cerumen in right ear canal (Acute) Diverticulitis large intestine w/o perforation or abscess w/o bleeding (Acute) Restless leg syndrome (Acute) Osteoarthritis (Chronic) Hearing loss (Acute) Atrophic vaginitis (Acute) Recurrent pulmonary embolism (Acute) Anxiety and depression (Chronic) GERD (gastroesophageal reflux disease) (Chronic) Hip pain, left (Acute) Low back pain (Acute) Female bladder prolapse (Acute) Vitamin D deficiency (Acute) Vertigo (Acute) Headache (Acute) Bilateral pulmonary embolism (Acute) Acute deep vein thrombosis (DVT) of left lower extremity (Acute) Dizziness (Acute) Lumbar radiculopathy (Acute) Spondylolisthesis, lumbar region (Acute) Pulmonary embolism (Acute) Trochanteric bursitis, left hip (Chronic 07/22/17) Tarsal tunnel syndrome of right side (Acute 01/14/17) Primary osteoarthritis of left hip (Acute 07/22/17) Posterior tibial tendon dysfunction (PTTD) of both lower extremities (Acute 01/14/17) Pes planus of both feet (Acute 01/14/17) History of total left hip replacement (Chronic) DOS: 08/25/17 Dr. Lee Tendinitis of left rotator cuff (Acute) Sensorineural hearing loss of both ears (Chronic) Trigger finger, right ring finger (Acute) s/p surgical release 05/08/2020 Medical History Pulmonary embolism SVT (supraventricular tachycardia) Surgical History H/O total knee replacement bilat S/P total hip arthroplasty Social History Smoking/Tobacco Use Status: Former Tobacco Use Smoking risk assessment performed?: Yes Alcohol Intake: current Alcohol Intake frequency: a few times a month Alcohol type: beer and wine Drug use: Never Substance use type: does not use Housing: house current occupation: retired - site admin at [employer] Current gender identity: female What type of physical activity do you participate in: regular exercise Do you feel safe at home: Yes Do you feel safe in your relationship?: Yes Meds Allergies and Home Medications Allergies Allergy/AdvReac Type Severity Reaction Status Date / Time perfume Allergy Intermediate Skin Rash Verified 02/26/25 08:26 animal dander Allergy Mild Skin Rash Verified 02/26/25 08:26 Home Medications ?Medication ?Instructions ?Recorded ?Confirmed ?Type acetaminophen 500 mg tablet (Mapap 1,000 mg (2 x 500 mg) PO TID #60 05/08/20 02/26/25 Rx Extra Strength) tabs Al hyd-Mg tr-alg ac-sod bicarb 80 1 tab PO PRN PRN 11/16/20 02/26/25 History mg-14.2 mg chewable tablet (Gaviscon) aluminum-mag hydroxide-simethicone See Rx Instructions .Route .COMPLEX 11/16/20 02/26/25 History 400 mg-400 mg-40 mg/5 mL oral susp (Mylanta Maximum Strength) ascorbic acid (vitamin C) 500 mg 500 mg PO DAILY 11/16/20 02/26/25 History tablet (Vitamin C) calcium 200 mg (as 1 tab PO DAILY 11/16/20 02/26/25 History carbonate)-magnesium 100 mg chewable tablet (Gareth-Mag) estradiol 0.01% (0.1 mg/gram) 1 g vaginal DAILY 11/16/20 02/26/25 History vaginal cream (Estrace) hydrocortisone 2.5 % topical cream 1 applic topical BID PRN 11/16/20 02/26/25 History vitamin B complex 1 tab PO DAILY 11/16/20 02/26/25 History apixaban 5 mg tablet (Eliquis) 5 mg PO BID 06/12/23 02/26/25 History cholecalciferol (vitamin D3) 25 25 mcg PO DAILY 06/12/23 02/26/25 History mcg (1,000 unit) capsule meclizine 25 mg tablet 25 mg PO TID PRN 06/12/23 02/26/25 History metoprolol tartrate 25 mg tablet 25 mg PO DAILY 06/12/23 02/26/25 History omeprazole 20 mg capsule,delayed 20 mg PO DAILY 06/12/23 02/26/25 History release d-mannose 500 mg capsule 500 mg PO DAILY 12/31/23 02/26/25 History psyllium husk 0.4 gram capsule 0.4 g PO DAILY 12/31/23 02/26/25 History (Metamucil) cefpodoxime 200 mg tablet 200 mg PO BID #20 tabs 02/25/25 02/26/25 Rx Results Labs 02/26/25 08:40 02/26/25 08:40 Labs: Laboratory Results - last 24 hr 02/26/25 02/26/25 02/26/25 08:21 08:40 08:50 WBC 12.29 H RBC 4.15 Hgb 12.0 Hct 36.2 MCV 87 MCH 28.9 MCHC 33.1 RDW 13.8 Plt Count 274 MPV 9.5 Immature Gran % 0.3 Neutrophils % 82.4 Lymphocytes % 8.9 Monocytes % 8.0 Eosinophils % 0.0 Basophils % 0.4 Nucleated RBC % 0.0 Absolute Neutrophils 10.13 H Absolute Lymphocytes 1.09 L Absolute Monocytes 0.98 H Absolute Eosinophils 0.00 Absolute Basophils 0.05 VBG Lactate 0.8 Sodium 134 L Potassium 3.7 Chloride 99 Carbon Dioxide 25.8 Anion Gap 9.2 BUN 10 Creatinine 1.0 Est GFR (CKD-EPI 2020) 59.12 Glucose 137 H Calcium 8.9 Magnesium 1.9 Total Bilirubin 0.5 AST 63 H ALT 80 H Alkaline Phosphatase 127 H Total Protein 7.6 Albumin 3.2 L Procalcitonin Cancelled Urine Color Yellow Urine Clarity Clear Urine pH 6.0 Ur Specific [place]aney 1.015 Urine Protein 30 H Urine Ketones 15 H Urine Blood Moderate H Urine Nitrite Negative Urine Bilirubin Negative Urine Urobilinogen 0.2 Ur Leukocyte Esterase Trace H Urine RBC 5-10 H Urine WBC 20-50 H Ur Epithelial Cells Few Urine Crystals Negative Urine Bacteria Moderate Urine Casts Negative Urine Mucus Negative Ur Culture Indicated? C&S Done As Ordered Urine Glucose Negative Last Vital Signs Temp 36.8 C 02/26/25 09:41 Pulse 69 02/26/25 09:41 Resp 17 02/26/25 09:41 BP 121/69 02/26/25 09:41 Pulse Ox 94 02/26/25 09:41 PAWSS Have you Been Recently Intoxicated or Drunk Within the Last 30 days?: No Have you Ever Experienced Previous Episodes of Alcohol Withdrawal?: No Have you ever Experienced Withdrawal Seizures?: No Have you ever Experienced Delirium Tremens(DT)s?: No Have you ever undergone Alcohol Rehabilitation Treatment (i.e, inpt ot outpatient treatment programs)?: No Have you ever Experienced Blackouts?: No Have you ever Combined Alcohol with other Downers within the last 90 days?: No Have you ever Combined Alcohol with any other Substance of Abuse during the last 90 days?: No Positive Blood Alcohol level on Presentation? [PCS.BAL]: No Evidence of Increased Autonomic Activity (i.e. HR>120, tremor, sweating, agitation, nausea)?: No Result: 0 Time Spent Time spent with Patient: 55-74 minutes Time was spent: preparing to see the patient(eg.review tests), obtaining and/or reviewing separately otained hiistory, ordering medications,tests, procedures, indepentently interpreting results and counseling the patient
[2025-02-26] MEDS: Acetaminophen 500 MG TAB 1000 MG PO ×2 (15:41→23:35)
[2025-02-26] MEDS: Apixaban 5 MG TAB PO (19:23)
[2025-02-26] MEDS: Normal Saline Flush 10 ML SYR IVP (19:23)
[2025-02-26] MEDS: cefTRIAXone 2 GM/50 ML BAG IVPB (19:23)
[2025-02-26 19:45] VITALS: BP 139/78; PULSE 81; RESP 20; TEMP 37.6; O2SAT 96
[2025-02-27 07:54] VITALS: BP 126/77; PULSE 83; RESP 16; TEMP 36.6; O2SAT 97
[2025-02-27] MEDS: Metoprolol 12.5 MG TAB 25 MG PO (08:01)
[2025-02-27] MEDS: Omeprazole 20 MG CAPCR PO (08:02)
[2025-02-27] MEDS: Cholecalciferol (Vitamin D3) 1,000 UNIT TAB 1000 UNITS PO (08:02)
[2025-02-27] MEDS: Apixaban 5 MG TAB PO ×2 (08:02→20:10)
[2025-02-27] MEDS: Normal Saline Flush 10 ML SYR IVP ×2 (08:03→20:11)
[2025-02-27] MEDS: Acetaminophen 500 MG TAB 1000 MG PO ×2 (08:04→20:10)
--- NOTE | 2025-02-27 08:58 | INITIAL_ITS ---
Date of service: 02/27/25 Time of Service: 12:09 Care Management Initial Assmt Initial Assessment Reason for Hospitalization: Pyelonephritis, gram negative bacteremia Functional Status/Living Situation Patient Presentation: Anitha is a pleasant women, who was lying in her bed and visiting with her - Joseph, when CM arrived. Anitha presents to the ED after her blood culture came back positive and was called to return. She was seen yesterday and had labs and imaging of her abdomen pelvis done which showed left pyelonephritis and she chose to go home and to be admitted. Today, she is feeling better and is hopeful to be discharged soon. Dana is living at home, with Joseph in [facility]. She has a large family, and most of them are local. Family acts as a natural support for Dana. She states that she is independent at baseline, including driving; Dana states that she does not have home services and is not connected to community organizations, at this time. CM will continue to follow. 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 ) Instrumental Activities of Daily Living (ADLs): Independent Medications Medication Management: No Issues/Barriers identified ([facility] in [facility] ) Physical Functioning/Mobility Assistive Device: Cane - only when going for long distances, not everyday Advance Directives Advance Directives: Do you have an Advance Directive: Y 07/03/23 13:46 AD On File at [facility]: Y 07/03/23 13:46 Date Asked 01/22/23 07/05/24 10:24 AD Date Reviewed 02/26/25 02/26/25 18:58 COLST On File at [facility] COLST Date Scanned Code Status Resuscitation Status Full Code Portal Pt does not currently have a portal and education provided: Yes Insurance Coverage/Financial Issues Insurance: Medicare Part A & B - [id number] /[facility] - [id number] Care Team Visit Care Team Role Provider Type Swati John APRN MD [facility] STAFF PHYSICIAN Tamara Gomez Primary Care Provider NON-[facility] STAFF PHYSICIAN Velasquez Marie MD Emergency Provider [facility] STAFF PHYSICIAN Rickey Monzon Admit Provider [facility] STAFF PHYSICIAN Attending Provider Discharge Potential Discharge Needs: PCP F/U Appt Anticipated Barriers to Discharge: Medical Status Patient/Family Education Needs: Review discharge instructions, discuss Ask Me T hree Transportation: Private vehicle (Joseph) Plan: Anticipate Dana will return home, once medically ready. She will follow up with her community providers and plan of care. She will transport via private vehicle by her - Joseph. Social Determinants of Health Screening Will the Patient Participate in the Screening?: Declined to provide PFSH All Active Problems (Updated 02/26/25 @ 13:08 by Dorothy Yen NP) Contraindication to deep vein thrombosis prophylaxis (Acute) Pulmonary embolism (Chronic) Sepsis without septic shock (Acute) Bacteremia (Acute) Positive blood culture (Acute) Acute pyelonephritis (Acute) Acute UTI (Acute) Other specified disorders of tendon, right ankle and foot (Acute) Excessive cerumen in right ear canal (Acute) Diverticulitis large intestine w/o perforation or abscess w/o bleeding (Acute) Restless leg syndrome (Acute) Osteoarthritis (Chronic) Hearing loss (Acute) Atrophic vaginitis (Acute) Recurrent pulmonary embolism (Acute) Anxiety and depression (Chronic) GERD (gastroesophageal reflux disease) (Chronic) Hip pain, left (Acute) Low back pain (Acute) Female bladder prolapse (Acute) Vitamin D deficiency (Acute) Vertigo (Acute) Headache (Acute) Bilateral pulmonary embolism (Acute) Acute deep vein thrombosis (DVT) of left lower extremity (Acute) Dizziness (Acute) Lumbar radiculopathy (Acute) Spondylolisthesis, lumbar region (Acute) Pulmonary embolism (Acute) Trochanteric bursitis, left hip (Chronic 07/22/17) Tarsal tunnel syndrome of right side (Acute 01/14/17) Primary osteoarthritis of left hip (Acute 07/22/17) Posterior tibial tendon dysfunction (PTTD) of both lower extremities (Acute 01/14/17) Pes planus of both feet (Acute 01/14/17) History of total left hip replacement (Chronic) DOS: 08/25/17 Dr. Lee Tendinitis of left rotator cuff (Acute) Sensorineural hearing loss of both ears (Chronic) Trigger finger, right ring finger (Acute) s/p surgical release 05/08/2020 Medical History Pulmonary embolism SVT (supraventricular tachycardia) Surgical History H/O total knee replacement bilat S/P total hip arthroplasty Social History Smoking/Tobacco Use Status: Former Tobacco Use Smoking risk assessment performed?: Yes Alcohol Intake: current Alcohol Intake frequency: a few times a month Alcohol type: beer and wine Drug use: Never Substance use type: does not use Housing: house current occupation: retired - site admin at [employer] Current gender identity: female What type of physical activity do you participate in: regular exercise Do you feel safe at home: Yes Do you feel safe in your relationship?: Yes Readmission Within the Past 30 Days Yes or No: No
--- NOTE | 2025-02-27 10:05 | W.PM.PROGNOT ---
Date of Service Date of service: 02/27/25 Time of Service: 10:05 Assessment and Plan Assessment and plan (1) Sepsis without septic shock: Status: Acute Assessment and plan: Meets criteria for sepsis without septic shock with heart rate above 90 respiratory rate above 20 elevated white blood cell count Lactic acid negative Blood cultures growing gram-negative rods ID and sensitivities pending repeat blood cultures pending Tick and Lyme panel pending - lyme negative (2) Acute pyelonephritis: Status: Acute Assessment and plan: Continue ceftriaxone while awaiting culture ID and sensitivities CT scan with no nephrolithiasis hydronephrosis or signs of obstructive uropathy (3) Bacteremia: Status: Acute Assessment and plan: Blood cultures growing gram-negative rods anticipate same bacteria growing in urine but cultures are still pending Repeat blood cultures pending Anticipate 10 to 14 days antibiotic course from first negative blood culture daten upon d/c Night sweat overnight - will revaluate in AM (4) Pulmonary embolism: Status: Chronic Assessment and plan: History of, Ongoing apixaban (5) GERD (gastroesophageal reflux disease): Status: Chronic Assessment and plan: On home omeprazole (6) Contraindication to deep vein thrombosis prophylaxis: Status: Acute Assessment and plan: On apixaban no pharmacological and mechanical prophylaxis needed discussed with DR Monzon Subjective Subjective Patient reports: no new complaints, tolerating liquids well, tolerating a regular diet, voiding w/o difficulty, flatus, bowel movement, afebrile and other (profuse night sweats, reporting tick bite recently); denies diarrhea, nausea, vomiting or shortness of breath Exam Narrative Exam Narrative: Constitutional Old female patient looking of stated age in no acute distress, and oriented x 4, no neuro deficits, no JVD, , clear lungs, unlabored breathing, S1-S2, no murmur, abdomen is nonacute and bowel sounds are present, no CVA tenderness, moves all 4 extremities Objective Last Vital Signs Temp 36.6 C 02/27/25 07:54 Pulse 83 02/27/25 07:54 Resp 16 02/27/25 07:54 BP 126/77 02/27/25 07:54 Pulse Ox 97 02/27/25 07:54 PAWSS Have you Been Recently Intoxicated or Drunk Within the Last 30 days?: No Have you Ever Experienced Previous Episodes of Alcohol Withdrawal?: No Have you ever Experienced Withdrawal Seizures?: No Have you ever Experienced Delirium Tremens(DT)s?: No Have you ever undergone Alcohol Rehabilitation Treatment (i.e, inpt ot outpatient treatment programs)?: No Have you ever Experienced Blackouts?: No Have you ever Combined Alcohol with other Downers within the last 90 days?: No Have you ever Combined Alcohol with any other Substance of Abuse during the last 90 days?: No Positive Blood Alcohol level on Presentation? [PCS.BAL]: No Evidence of Increased Autonomic Activity (i.e. HR>120, tremor, sweating, agitation, nausea)?: No Result: 0 Time Spent with Patient Time Spent with Patient: >50 minutes Time was spent: preparing to see the patient(eg.review tests), obtaining and/or reviewing separately otained hiistory, ordering medications,tests, procedures, referring, communicating with other health career technical education teacher, indepentently interpreting results, counseling the patient and care coordination
[2025-02-27 10:43] LABS: Abs Immature Grans 0.03 10^3/uL (0.0-0.06); Absolute Basophil Count 0.05 10^3/uL (0.0-0.2); Absolute Eosinophil Count 0.05 10^3/uL (0.0-0.7); Absolute Lymphocyte Count 1.53 10^3/uL (1.2-3.4); Absolute Neutrophil Count 6.38 10^3/uL (1.2-6.7); Basophils % 0.5 %; Eosinophils % 0.5 %; HCT 34.1 % (36.0-46.0); HGB 11.4 g/dL (11.2-15.7); Immature Grans % 0.3 %; Lymphocytes % 16.7 %; MCH 29.1 pg (27.0-33.0); MCHC 33.4 % (32.0-36.0); MCV 87 fL (80-95); MPV 9.4 fL (8.0-11.0); Platelet Count 266 10^3/uL (130-400); RBC 3.92 10^6/uL (3.93-5.22); RDW 13.6 % (11.7-14.6); RDW-SD 42.9 fL; WBC 9.14 10^3/uL (4.4-10.8)
[2025-02-27 11:09] LABS: ALT 91 U/L (14-59); AST 64 U/L (15-37); Albumin 2.7 g/dL (3.4-5.0); Alkaline Phosphatase 133 U/L (46-116); Anion Gap 7.5 mmol/L (3-11); BUN 11 mg/dL (7-18); Bilirubin, Total 0.3 mg/dL (0.2-1.0); CO2 28.5 mmol/L (21.0-32.0); CREATININE 0.9 mg/dL (0.55-1.02); Calcium 8.9 mg/dL (8.5-10.1); Chloride 100 mmol/L (98-107); Estimated GFR 67.08 (mL/min/1.73m2); Glucose 103 mg/dL (74-106); Potassium 3.4 mmol/L (3.5-5.1); Sodium 136 mmol/L (136-145); Total Protein 6.9 g/dL (6.4-8.2)
[2025-02-27 19:44] VITALS: BP 145/89; PULSE 89; RESP 16; TEMP 38.5; O2SAT 95
[2025-02-27] MEDS: cefTRIAXone 2 GM/50 ML BAG IVPB (20:11)
[2025-02-27] MEDS: Psyllium PKT 1 EACH PO (20:18)
[2025-02-27 21:14] VITALS: TEMP 36
[2025-02-28 07:17] LABS: Abs Immature Grans 0.02 10^3/uL (0.0-0.06); Absolute Basophil Count 0.04 10^3/uL (0.0-0.2); Absolute Eosinophil Count 0.14 10^3/uL (0.0-0.7); Absolute Monocyte Count 1.03 10^3/uL (0.1-0.8); Absolute Neutrophil Count 4.86 10^3/uL (1.2-6.7); Basophils % 0.5 %; Eosinophils % 1.8 %; HCT 34.2 % (36.0-46.0); HGB 11.4 g/dL (11.2-15.7); Immature Grans % 0.3 %; Lymphocytes % 22.8 %; MCH 28.9 pg (27.0-33.0); MCHC 33.3 % (32.0-36.0); MCV 87 fL (80-95); MPV 10.2 fL (8.0-11.0); Monocytes % 13.1 %; Neutrophils % 61.5 %; Platelet Count 294 10^3/uL (130-400); RBC 3.95 10^6/uL (3.93-5.22); RDW 13.3 % (11.7-14.6); WBC 7.89 10^3/uL (4.4-10.8)
[2025-02-28 07:41] LABS: Anion Gap 10.6 mmol/L (3-11); BUN 11 mg/dL (7-18); CO2 26.4 mmol/L (21.0-32.0); CREATININE 0.8 mg/dL (0.55-1.02); Chloride 103 mmol/L (98-107); Estimated GFR 77.27 (mL/min/1.73m2); Glucose 103 mg/dL (74-106); Potassium 3.6 mmol/L (3.5-5.1); Sodium 140 mmol/L (136-145)
[2025-02-28] MEDS: Metoprolol 12.5 MG TAB 25 MG PO (08:28)
[2025-02-28] MEDS: Normal Saline Flush 10 ML SYR IVP ×2 (08:29→20:31)
[2025-02-28] MEDS: Cholecalciferol (Vitamin D3) 1,000 UNIT TAB 1000 UNITS PO (08:29)
[2025-02-28] MEDS: Apixaban 5 MG TAB PO ×2 (08:29→20:30)
[2025-02-28] MEDS: Omeprazole 20 MG CAPCR PO (08:29)
[2025-02-28 09:20] VITALS: BP 136/86; PULSE 69; RESP 14; TEMP 36.5; O2SAT 96
--- NOTE | 2025-02-28 09:57 | PDOC.CMDIS ---
Date of service: 02/28/25 Time of Service: 09:57 LACE Index Scoring Tool Questions: Length of Stay (in days): 2 Was the patient admitted via the E.D.?: Yes E.D. Visits: 2 Answers: Total Score: 7 Risk of Readmission: Low Risk Care Management Discharge Plan Reason for Hospitalization: pyelonephritis, gram negative bacteremia Discharge Plan: Dana will return home, once medically ready. She will follow up with her community providers and plan of care. She will transport via private vehicle by her - Joseph. Patient/Family Education Needs: Review discharge instructions, activity, limitations, and plan of care. Discuss Ask Me Three. SDMO Health Related Social Needs: No Data to Display
--- NOTE | 2025-02-28 11:50 | DSE_ITS ---
Date of service: 03/01/25 Time of Service: 11:06 DS: Diagnosis Discharge Diagnosis (1) Sepsis without septic shock: Status: Acute (2) Acute pyelonephritis: Status: Acute (3) Bacteremia: Status: Acute (4) Pulmonary embolism: Status: Chronic (5) GERD (gastroesophageal reflux disease): Status: Chronic (6) Contraindication to deep vein thrombosis prophylaxis: Status: Acute Discharge Plan Disposition Patient Disposition: Home Condition: Improving Discharge Details Reason For Visit: Pyelonephritis,gram negative bacteremia Admit Date/Time: 02/26/25 08:43 Admit Provider: Rickey Monzon Attending Provider: Rickey Monzon Primary Care Provider: Tamara Gomez Hospital Course Hospital Course: This is a 74-year-old female patient past medical history significant for frequent urinary tract infections followed by urology at [facility] who presented on 02/25/25 to the ED with dysuria and findings of UT and pyelonephritis without nephrolithiasis hydronephrosis or obstructive uropathy. The patient initally received IV ceftriaxone and was discharged home on cefpodoxime but called back on 02/26/25 for GNR in blood and urine and treated admitted to the hospitalist service for ongoing treatment with ceftriaxone and c/o increased malaise back pain and having poor p.o. intake. In the setting of ongoing febrile illness, mild transaminitis and history on hunting and tick encounters, doxycycline was added to the regimen with resolution of fevers; doxycycline oral ordered on discharge; anaplasma phagocytophilum result still pending but thick borne disease panel is otherwise negative. Repeat blood cultures were negative. Today, the patient has been hemodynamically stable, afebrile for over 24 hours and will be discharged on oral cefpodoxine to treat her E.coli sensitive bacteremia . Follow-up with PCP within 7 days of discharged please and as discussed call your urologist at [facility] for a follow-up. Recommendation for PCP follow-up: Urology referral Follow up on anaplasma phagocytophilum result, please. Discussed with Dr. Siomara Burnett Meds and New Rx's Prescriptions: New cefpodoxime 200 mg tablet 400 mg PO Q12H Qty: 28 0RF Rx Instructions: must administer with a meal/food Bio-K plus 50 billion cell capsule,delayed release(DR/EC) 1 cap PO DAILY Qty: 7 0RF Rx Instructions: Take 3 hours apart from antibiotics doxycycline hyclate 100 mg Capsule 100 mg PO BID Qty: 10 0RF Continued ascorbic acid (vitamin C) [Vitamin C] 500 mg Tablet 500 mg PO DAILY vitamin B complex Tablet 1 tab PO DAILY hydrocortisone 2.5 % Cream 1 applic TOPICAL BID PRN estradiol [Estrace] 0.01 % (0.1 mg/gram) Cream 1 g VAGINAL DAILY alum-mag hydroxide-simeth [Mylanta Maximum Strength] 400-400-40 mg/5 mL Suspension See Rx Instructions .ROUTE .COMPLEX Rx Instructions: PRN As directed Gaviscon 80-14.2 mg Tablet,Chewable 1 tab PO PRN PRN Gareth-Mag 200 mg calcium- 100 mg Tablet,Chewable 1 tab PO DAILY psyllium husk [Metamucil] 0.4 gram capsule 0.4 g PO DAILY d-mannose 500 mg capsule 500 mg PO DAILY Eliquis 5 mg tablet 5 mg PO BID meclizine 25 mg tablet 25 mg PO TID PRN omeprazole 20 mg capsule,delayed release(DR/EC) 20 mg PO DAILY cholecalciferol (vitamin D3) 25 mcg (1,000 unit) capsule 25 mcg PO DAILY metoprolol tartrate 25 mg tablet 25 mg PO DAILY Rx Instructions: 01/03/19 pt uses for SVT prn cefpodoxime 200 mg tablet 200 mg PO BID Qty: 20 0RF Rx Instructions: must administer with a meal/food acetaminophen [Mapap Extra Strength] 500 MG tablet 1,000 mg PO TID Qty: 60 2RF Discharge Instructions Referrals: Tamara Gomez [Primary Care Provider] - (follow-up with PCP within 7 days of discharge) Activity:: Activity as Tolerated Equipment/Supplies:: No Equipment Needed Diet:: As Tolerated DS: Summary Time Spent with Patient providing and/or coordinating discharge services: Greater than 30 minutes Status at Discharge Functional status at discharge: independent ambulation Overall status at discharge: patient is progressing back to baseline Mental Status: mental status grossly normal Speech and Movement: speech and movement normal Mood: congruent mood Affect: normal affect Quality:SDOH Health Related Social Needs: No Data to Display Exam Narrative Exam Narrative: Constitutional 74 years old female patient looking of stated age in no acute distress, and oriented x 4, no neuro deficits, no JVD, , clear lungs, unlabored breathing, S1- S2, no murmur, abdomen non-distended soft and non-tender no CVA tenderness, moves all 4 extremities, abrasion to RLE deepest at 3 mm.- unaware of how this happened Psych Mental Status: mental status grossly normal Speech and Movement: speech and movement normal Mood: congruent mood Affect: normal affect DS: Data Vitals/I&O Vitals and I&O: Vital Signs Temperature 36.5 C 02/28/25 09:20 Temperature Source Temporal Artery Scan 02/28/25 09:20 Pulse 69 02/28/25 09:20 Pulse Rhythm Regular 02/26/25 09:46 Respiratory Rate 14 02/28/25 09:20 Respiratory Effort Normal, Non-Labored 02/26/25 09:46 Respiratory Depth Normal 02/26/25 09:46 Respiratory Pattern Normal 02/26/25 09:46 Blood Pressure 136/86 02/28/25 09:20 Blood Pressure Mean 102 02/28/25 09:20 Blood Pressure Position Sitting 02/26/25 08:22 Pulse Oximetry 96 02/28/25 09:20 Oxygen Delivery Method Room Air 02/28/25 09:20 Oxygen Flow Rate 0 02/28/25 09:20 Pain Level 0 02/27/25 09:04 Intake & Output 02/27/25 02/27/25 02/28/25 11:59 23:59 11:59 Intake Total 60 / 60 Balance 60 / 60 Intake: IV 60 / 60 Oral Other: Comment pt voids independently, no issues reported pt voids indpendently pt voids indpendently Stool Size Large Stool Characteristics Formed Brown Data Completed and Pending Labs on day of discharge: Labs from last 24 hours 02/28/25 06:00 WBC 7.89 RBC 3.95 Hgb 11.4 Hct 34.2 L MCV 87 MCH 28.9 MCHC 33.3 RDW 13.3 Plt Count 294 MPV 10.2 Immature Gran % 0.3 Neutrophils % 61.5 Lymphocytes % 22.8 Monocytes % 13.1 Eosinophils % 1.8 Basophils % 0.5 Nucleated RBC % 0.0 Absolute Neutrophils 4.86 Absolute Lymphocytes 1.80 Absolute Monocytes 1.03 H Absolute Eosinophils 0.14 Absolute Basophils 0.04 Sodium 140 Potassium 3.6 Chloride 103 Carbon Dioxide 26.4 Anion Gap 10.6 BUN 11 Creatinine 0.8 Est GFR (CKD-EPI 2020) 77.27 Glucose 103 Calcium 9.0 Magnesium 2.0 Preliminary micro results at discharge 02/26/25 09:04 Blood Blood Culture - Preliminary NO GROWTH 48 HOURS 02/26/25 08:40 Blood Blood Culture - Preliminary NO GROWTH 48 HOURS PFSH All Active Problems (Updated 02/28/25 @ 14:04 by Swati John APRN) Bacteremia, escherichia coli (Acute) Contraindication to deep vein thrombosis prophylaxis (Acute) Pulmonary embolism (Chronic) Sepsis without septic shock (Acute) Bacteremia (Acute) Positive blood culture (Acute) Acute pyelonephritis (Acute) Acute UTI (Acute) Other specified disorders of tendon, right ankle and foot (Acute) Excessive cerumen in right ear canal (Acute) Diverticulitis large intestine w/o perforation or abscess w/o bleeding (Acute) Restless leg syndrome (Acute) Osteoarthritis (Chronic) Hearing loss (Acute) Atrophic vaginitis (Acute) Recurrent pulmonary embolism (Acute) Anxiety and depression (Chronic) GERD (gastroesophageal reflux disease) (Chronic) Hip pain, left (Acute) Low back pain (Acute) Female bladder prolapse (Acute) Vitamin D deficiency (Acute) Vertigo (Acute) Headache (Acute) Bilateral pulmonary embolism (Acute) Acute deep vein thrombosis (DVT) of left lower extremity (Acute) Dizziness (Acute) Lumbar radiculopathy (Acute) Spondylolisthesis, lumbar region (Acute) Pulmonary embolism (Acute) Trochanteric bursitis, left hip (Chronic 07/22/17) Tarsal tunnel syndrome of right side (Acute 01/14/17) Primary osteoarthritis of left hip (Acute 07/22/17) Posterior tibial tendon dysfunction (PTTD) of both lower extremities (Acute 01/14/17) Pes planus of both feet (Acute 01/14/17) History of total left hip replacement (Chronic) DOS: 08/25/17 Dr. Lee Tendinitis of left rotator cuff (Acute) Sensorineural hearing loss of both ears (Chronic) Trigger finger, right ring finger (Acute) s/p surgical release 05/08/2020 Medical History Pulmonary embolism SVT (supraventricular tachycardia) Surgical History H/O total knee replacement bilat S/P total hip arthroplasty Social History Smoking/Tobacco Use Status: Former Tobacco Use Smoking risk assessment performed?: Yes Alcohol Intake: current Alcohol Intake frequency: a few times a month Alcohol type: beer and wine Drug use: Never Substance use type: does not use Housing: house current occupation: retired - site admin at [employer] Current gender identity: female What type of physical activity do you participate in: regular exercise Do you feel safe at home: Yes Do you feel safe in your relationship?: Yes Time Spent with Patient Time Spent with Patient: 70-84 minutes4 Time was spent: preparing to see the patient(eg.review tests), obtaining and/or reviewing separately otained hiistory, ordering medications,tests, procedures, referring, communicating with other health child care coordinator, indepentently interpreting results, counseling the patient and care coordination
[2025-02-28] MEDS: Acetaminophen 500 MG TAB 1000 MG PO (13:34)
[2025-02-28] MEDS: Doxycycline Hyclate 100 MG CAP PO ×2 (13:34→20:30)
--- NOTE | 2025-02-28 13:36 | PDOC.CMPRO ---
Date of service: 02/28/25 Time of Service: 13:36 Care Management Progress Note Progress Note Text Progress Note Text: Dana was sitting in her chair, reading a book when CM arrived this morning. Dana states she is feeling excited to go home. CM went to revisit later in the day; Per provider, Dana will stay another night. Dana reports that she is okay with this, and that she wants to be sure, she is better. Dana states her will be visiting this afternoon, and he will transport her at the time of discharge. CM will continue to follow and support with discharge planning needs. Discharge Potential Discharge Needs: PCP F/U Appt Anticipated Barriers to Discharge: Medical Status Patient/Family Education Needs: Review discharge instructions, discuss Ask Me Three Transportation: Private vehicle Plan: Anticipate Dana will return home, once medically ready. She will follow up with her community providers and plan of care. She will transport via private vehicle by her - Joseph. Social Determinants of Health Screening Will the Patient Participate in the Screening?: Declined to provide
--- NOTE | 2025-02-28 13:41 | PDOC.HHF2F ---
Home Health Referral Encounter Date and Reason: I certify that a FTF encounter for this patient was performed on February 28, 2025 and that such encounter was related to the primary reason the patient requires home health services. The encounter was conducted in the following manner: By me as the certifying physician, OXIDE FURNACE TENDER, PA or By an inpatient physician, OXIDE FURNACE TENDER or PA during an inpatient stay who communicated findings to me, Certification And Authentication I certify that I composed the above information based on my clinical judgment relating to this patient's medical condition and, if applicable, clinical findings communicated to me by the NPP or inpatient physician who performed the FTF encounter.
--- NOTE | 2025-02-28 13:42 | W.PM.PROGNOT ---
Date of Service Date of service: 02/28/25 Time of Service: 13:42 Assessment and Plan Assessment and plan (1) Sepsis without septic shock: Status: Acute Assessment and plan: Meets criteria for sepsis without septic shock with heart rate above 90 respiratory rate above 20 elevated white blood cell count Blood cultures grew E. Coli sensistive to ceftriaxone owing gram-negative rods ID and sensitivities pending repeat blood cultures negative but still febrile Tick and Lyme panel - lyme negative, others pending Febrile overnight again, slight transaminitis - anaplasmosis testing added Will cover with doxycycline d/t to history of tick encounter and [place] as well as clinical presentation (2) Bacteremia, escherichia coli: Status: Acute Assessment and plan: As above From UTI (3) Acute pyelonephritis: Status: Acute Assessment and plan: Continue ceftriaxone CT scan with no nephrolithiasis, hydronephrosis or signs of obstructive uropathy (4) Bacteremia: Status: Acute Assessment and plan: Blood cultures growing gram-negative rods anticipate same bacteria growing in urine but cultures are still pending Repeat blood cultures pending Anticipate 10 to 14 days antibiotic course from first negative blood culture daten upon d/c Night sweat overnight - will revaluate in AM (5) Pulmonary embolism: Status: Chronic Assessment and plan: History of multiple PE's On home dose of Eliquis (6) GERD (gastroesophageal reflux disease): Status: Chronic Assessment and plan: On home PPI (7) Contraindication to deep vein thrombosis prophylaxis: Status: Acute Assessment and plan: On Eliquis with Hx of PE's -no pharmacological and mechanical prophylaxis needed discussed with Dr Stringer Subjective Subjective Patient reports: feels better, tolerating liquids well, tolerating a regular diet, bowel movement, fever and other (reporting fever overnight , ticks encountered in the past does not remember the insect latching on ); denies voiding w/o difficulty, diarrhea, nausea, vomiting or shortness of breath Exam Narrative Exam Narrative: Constitutional 74 years old female patient looking of stated age in no acute distress, and oriented x 4, no neuro deficits, no JVD, , clear lungs, unlabored breathing, S1-S2, no murmur, abdomen non-distended soft and non-tender no CVA tenderness, moves all 4 extremities, abrasion to RLE deepest 3 mm.- unaware of how this happened Objective Last Vital Signs Temp 36.5 C 02/28/25 09:20 Pulse 69 02/28/25 09:20 Resp 14 02/28/25 09:20 BP 136/86 02/28/25 09:20 Pulse Ox 96 02/28/25 09:20 Laboratory Results - last 24 hr 02/28/25 06:00 WBC 7.89 RBC 3.95 Hgb 11.4 Hct 34.2 L MCV 87 MCH 28.9 MCHC 33.3 RDW 13.3 Plt Count 294 MPV 10.2 Immature Gran % 0.3 Neutrophils % 61.5 Lymphocytes % 22.8 Monocytes % 13.1 Eosinophils % 1.8 Basophils % 0.5 Nucleated RBC % 0.0 Absolute Neutrophils 4.86 Absolute Lymphocytes 1.80 Absolute Monocytes 1.03 H Absolute Eosinophils 0.14 Absolute Basophils 0.04 Sodium 140 Potassium 3.6 Chloride 103 Carbon Dioxide 26.4 Anion Gap 10.6 BUN 11 Creatinine 0.8 Est GFR (CKD-EPI 2020) 77.27 Glucose 103 Calcium 9.0 Magnesium 2.0 PAWSS Have you Been Recently Intoxicated or Drunk Within the Last 30 days?: No Have you Ever Experienced Previous Episodes of Alcohol Withdrawal?: No Have you ever Experienced Withdrawal Seizures?: No Have you ever Experienced Delirium Tremens(DT)s?: No Have you ever undergone Alcohol Rehabilitation Treatment (i.e, inpt ot outpatient treatment programs)?: No Have you ever Experienced Blackouts?: No Have you ever Combined Alcohol with other Downers within the last 90 days?: No Have you ever Combined Alcohol with any other Substance of Abuse during the last 90 days?: No Positive Blood Alcohol level on Presentation? [PCS.BAL]: No Evidence of Increased Autonomic Activity (i.e. HR>120, tremor, sweating, agitation, nausea)?: No Result: 0 Time Spent with Patient Time Spent with Patient: >50 minutes Time was spent: preparing to see the patient(eg.review tests), obtaining and/or reviewing separately otained hiistory, ordering medications,tests, procedures, referring, communicating with other health hospice care transitions coordinator, indepentently interpreting results, counseling the patient and care coordination
[2025-02-28] MEDS: Lactobacillus Acidophilus CAP 1 CAP PO ×2 (16:03→22:11)
[2025-02-28 20:05] VITALS: BP 125/69; PULSE 69; RESP 19; TEMP 36.4; O2SAT 96
[2025-02-28] MEDS: Psyllium PKT 1 EACH PO (20:30)
[2025-02-28] MEDS: cefTRIAXone 2 GM/50 ML BAG IVPB (20:30)
[2025-02-28 23:29] VITALS: TEMP 36
[2025-03-01 02:36] VITALS: TEMP 36.2
[2025-03-01] MEDS: Acetaminophen 500 MG TAB 1000 MG PO (02:36)
[2025-03-01 02:40] VITALS: TEMP 36.2
[2025-03-01 07:51] VITALS: BP 135/84; PULSE 66; RESP 15; TEMP 36.3; O2SAT 94
[2025-03-01] MEDS: Doxycycline Hyclate 100 MG CAP PO (09:05)
[2025-03-01] MEDS: Omeprazole 20 MG CAPCR PO (09:05)
[2025-03-01] MEDS: Cholecalciferol (Vitamin D3) 1,000 UNIT TAB 1000 UNITS PO (09:05)
[2025-03-01] MEDS: Metoprolol 25 MG TAB PO (09:05)
[2025-03-01] MEDS: Lactobacillus Acidophilus CAP 1 CAP PO (09:05)
[2025-03-01] MEDS: Normal Saline Flush 10 ML SYR IVP (09:06)
[2025-03-01] MEDS: Apixaban 5 MG TAB PO (09:06)
--- NOTE | 2025-03-01 10:39 | PDOC.CMDIS ---
Date of service: 03/01/25 Time of Service: 10:39 LACE Index Scoring Tool Questions: Length of Stay (in days): 3 Was the patient admitted via the E.D.?: Yes E.D. Visits: 2 Answers: Total Score: 8 Risk of Readmission: Low Risk Care Management Discharge Plan Reason for Hospitalization: Pyelonephritis, gram negative bacteremia Discharge Plan: Dana will return home, once medically ready. She will follow up with her community providers and plan of care. She will transport via private vehicle by her - Joseph. Patient/Family Education Needs: Review of discharge instructions, activity, limitations, and plan of care. Discuss Ask Me Three. SDOH Health Related Social Needs: No Data to Display
[2025-03-01 23:44] LABS: Anaplasma phagocytophilum Ab <1:64 titer (<1:64)
== END 2025-03-01 11:54 | disposition home or self-care (01) | DRG 872 ==
LOC: ER 09:06 → MS 09:41
PROVIDERS: Admitting Provider Family Medicine; Emergency Provider Emergency Medicine; PCP Family Medicine; Responsible Provider Nurse Practitioner Acute Care; Visit Provider Family Medicine
DX: A41.9 Sepsis, unspecified organism (principal); N10 Acute pyelonephritis; K21.9 Gastro-esophageal reflux disease without esophagitis; B96.20 Unspecified Escherichia coli [E. coli] as the cause of diseases classified elsewhere; Z86.711 Personal history of pulmonary embolism; Z79.01 Long term (current) use of anticoagulants; Z87.440 Personal history of urinary (tract) infections; G25.81 Restless legs syndrome; F41.8 Other specified anxiety disorders; E55.9 Vitamin D deficiency, unspecified; N81.10 Cystocele, unspecified; Z86.718 Personal history of other venous thrombosis and embolism; Z96.642 Presence of left artificial hip joint; H90.3 Sensorineural hearing loss, bilateral; Z96.653 Presence of artificial knee joint, bilateral; R74.01 Elevation of levels of liver transaminase levels
CPT/HCPCS: 00123; 36415; 80048; 80053; 84145; 86666; 87040; 99285; 81003; 81015; 83605; 83735; 85025; 87086; 99223; 99233; 99239; J0696; J3490

== ENCOUNTER 2025-03-10 15:15 | Outpatient (REF) | payer MEDICARE, BC, SELFPAY ==
[2025-03-10 21:01] LABS: Bilirubin Negative (Negative); Blood Negative (Negative); Clarity Clear (Clear); Glucose Negative (Negative); Ketones Negative (Negative); Leukocyte Esterase Negative (Negative); Nitrite Negative (Negative); Specific Gravity 1.015 (1.005-1.025); Urobilinogen 0.2 mg/dL (Up to 0.2); pH 5.5 (5-8)
[2025-03-10 21:14] LABS: Anion Gap 6.8 mmol/L (3-11); BUN 19 mg/dL (7-18); CO2 31.2 mmol/L (21.0-32.0); CREATININE 1.1 mg/dL (0.55-1.02); Calcium 9.3 mg/dL (8.5-10.1); Chloride 101 mmol/L (98-107); Estimated GFR 52.73 (mL/min/1.73m2); Glucose 82 mg/dL (74-106); Potassium 4.6 mmol/L (3.5-5.1); Sodium 139 mmol/L (136-145)
== END 2025-03-10 15:16 | disposition home or self-care (01) ==
LOC: NCHCN 15:15
PROVIDERS: PCP Family Medicine; Visit Provider Family Medicine
DX: N12 Tubulo-interstitial nephritis, not specified as acute or chronic (principal)
CPT/HCPCS: 80048; 81003; 87086

== ENCOUNTER → 2025-08-07 01:31 | Outpatient (CLI) | payer MEDICARE, BC, SELFPAY ==
--- NOTE | 2025-08-07 08:00 | DI.MAMMO_ITS ---
Exam(s) MAMMO SCREENING EXAM: MAMMO SCREENING CLINICAL HISTORY: SCREENING MAMMO Z12.31 TECHNIQUE: Mammograms were interpreted according to the usual protocol including computer analysis with CAD system, tomosynthesis and C-view imaging. COMPARISON: 2015 through 2023 FINDINGS: The breasts are composed of mainly fatty density , Breast Density category A. No suspicious masses or suspicious microcalcifications are seen. No skin thickening or abnormal axillary lymph nodes are seen. There has been no significant change from prior exams. IMPRESSION: BI-RADS Category 1, Negative mammogram Yearly screening mammography is recommended. Breast Density- Category A - The breast are almost entirely fatty. Breast density Category C or D implies that the patient has dense breast tissue. Dense breast tissue can make it harder to find cancer on a mammogram. Dense breast tissue is also associated with an increased risk of breast cancer. This information about the result of the mammogram report was provided to the patient to raise their awareness. Use this report when you speak with the patient about their risks for breast cancer, which includes their family history. At that time, you may recommend additional screening tests (Ultrasound or MRI) as these tests may add significant information. A negative radiographic report should not delay biopsy if a dominant or clinically suspicious mass is present. Up to ten percent of cancers are not identified on mammography. A negative report may reinforce clinical impression. Adenosis and dense breasts may obscure an underlying neoplasm. False positive reports average 6 to 10%. Patient will receive a letter notifying them of these results.
== END ==
PROVIDERS: PCP Family Medicine; Visit Provider Family Medicine
DX: Z12.31 Encounter for screening mammogram for malignant neoplasm of breast (principal); R92.313 Mammographic fatty tissue density, bilateral breasts
CPT/HCPCS: 77063; 77067